=== PATIENT | female | born 1955 | race Caucasian/White ===

== ENCOUNTER → 2023-05-10 08:07 | Outpatient (REF) | payer MEDICARE, SELFPAY | LOC: RAD 08:07 | PROVIDERS: ATTENDING PHYSICIAN Internal Medicine; FAMILY PHYSICIAN Family Medicine | DX: M81.0 Age-related osteoporosis without current pathological fracture (principal) | CPT/HCPCS: 77080; 77081 ==

== ENCOUNTER → 2023-05-13 16:10 | Outpatient (REF) | payer MEDICARE, SELFPAY | LOC: RAD 16:10 | PROVIDERS: ATTENDING PHYSICIAN Specialist; FAMILY PHYSICIAN Family Medicine | DX: N20.0 Calculus of kidney (principal) | CPT/HCPCS: 74176 ==

== ENCOUNTER → 2023-08-13 12:26 | Outpatient (REF) | payer MEDICARE, SELFPAY | LOC: RAD 12:26 | PROVIDERS: ATTENDING PHYSICIAN Internal Medicine; FAMILY PHYSICIAN Family Medicine | DX: M34.9 Systemic sclerosis, unspecified (principal) | CPT/HCPCS: 71250 ==

== ENCOUNTER → 2023-08-24 06:59 | Outpatient (REF) | payer MEDICARE, SELFPAY | LOC: HWRCS 06:59 | PROVIDERS: ATTENDING PHYSICIAN Internal Medicine; FAMILY PHYSICIAN Family Medicine | DX: M34.9 Systemic sclerosis, unspecified (principal) | CPT/HCPCS: 93306 ==

== ENCOUNTER 2023-09-28 13:54 | Outpatient (RCR) | payer MEDICARE, SELFPAY | END 2023-09-28 23:59 | disposition home or self-care (01) | LOC: ROT 13:54 | PROVIDERS: ATTENDING PHYSICIAN Internal Medicine; FAMILY PHYSICIAN Family Medicine | DX: M34.9 Systemic sclerosis, unspecified (principal); Z73.6 Limitation of activities due to disability; M79.642 Pain in left hand; M79.641 Pain in right hand | CPT/HCPCS: 97010; 97110; 97140; 97166; 97535 ==

== ENCOUNTER 2023-10-29 13:19 | Outpatient (RCR) | payer MEDICARE, SELFPAY | END 2023-10-29 23:59 | disposition home or self-care (01) | LOC: ROT 13:19 | PROVIDERS: ATTENDING PHYSICIAN Internal Medicine; FAMILY PHYSICIAN Family Medicine | DX: M34.9 Systemic sclerosis, unspecified (principal); Z73.6 Limitation of activities due to disability; M79.642 Pain in left hand; M79.641 Pain in right hand | CPT/HCPCS: 97010; 97110; 97140 ==

== ENCOUNTER 2023-12-01 09:47 | Outpatient (RCR) | payer MEDICARE, SELFPAY | END 2023-12-01 23:59 | disposition home or self-care (01) | LOC: ROT 09:47 | PROVIDERS: ATTENDING PHYSICIAN Internal Medicine; FAMILY PHYSICIAN Family Medicine | DX: M34.9 Systemic sclerosis, unspecified (principal); Z73.6 Limitation of activities due to disability; M79.642 Pain in left hand; M79.641 Pain in right hand | CPT/HCPCS: 97018; 97110; 97140 ==

== ENCOUNTER → 2024-03-22 06:51 | Outpatient (REF) | payer MEDICARE, SELFPAY | LOC: HWRAD 06:51 | PROVIDERS: ATTENDING PHYSICIAN Internal Medicine; FAMILY PHYSICIAN Family Medicine | DX: R10.84 Generalized abdominal pain (principal) | CPT/HCPCS: 76700 ==

== ENCOUNTER 2024-03-28 06:24 | Day surgery (SDC) | payer MEDICARE, SELFPAY | END 2024-03-28 11:38 | disposition home or self-care (01) | LOC: GI 06:24 | PROVIDERS: ATTENDING PHYSICIAN Internal Medicine | DX: C18.3 Malignant neoplasm of hepatic flexure (principal); K56.699 Other intestinal obstruction unspecified as to partial versus complete obstruction; K63.3 Ulcer of intestine; R10.84 Generalized abdominal pain; K44.9 Diaphragmatic hernia without obstruction or gangrene; K31.7 Polyp of stomach and duodenum; K31.89 Other diseases of stomach and duodenum; Z98.84 Bariatric surgery status | CPT/HCPCS: 45380; 43239; 88305; 88342 ==

== ENCOUNTER → 2024-04-13 12:16 | Outpatient (REF) | payer MEDICARE, SELFPAY | LOC: RAD 12:16 | PROVIDERS: ATTENDING PHYSICIAN Internal Medicine; FAMILY PHYSICIAN Family Medicine; REFERRING PHYSICIAN Surgery | DX: C18.3 Malignant neoplasm of hepatic flexure (principal); K56.699 Other intestinal obstruction unspecified as to partial versus complete obstruction; K63.89 Other specified diseases of intestine | CPT/HCPCS: 71260; 74177; Q9967 ==

== ENCOUNTER → 2024-04-18 11:52 | Outpatient (REF) | payer MEDICARE, SELFPAY | LOC: MRI 3T 11:52 | PROVIDERS: ATTENDING PHYSICIAN Surgery; FAMILY PHYSICIAN Family Medicine | DX: C18.3 Malignant neoplasm of hepatic flexure (principal) | CPT/HCPCS: 74183; A9575 ==

== ENCOUNTER 2024-04-28 06:15 | Day surgery (SDC) | payer MEDICARE, SELFPAY ==
[2024-04-28] VITALS (8 sets, daily range): BP systolic 92–106; BP diastolic 53–68; BMI 22.2
[2024-04-28] MEDS: NORMOSOL-R/PLASMALYTE-A 1000 IV (07:00)
[2024-04-28] MEDS: TYLENOL 1000 MG PO (07:16)
[2024-04-28] MEDS: CELEBREX 200 MG PO (07:16)
--- NOTE | 2024-04-28 08:37 | W.IMMPOSTOP ---
Surgical Immed Post Op Note
-
Primary Surgeon: Mehul Girard MD
Assisting Surgeon: None
Pre-op Diagnosis: T4b colon cancer
Post-op Diagnosis: T4b colon cancer
Procedure Performed: Mediport insertion
Anesthesia Type: Sedation with local
Specimen / Cultures: None
Estimated Blood Loss: 10 mL
Complications: None
Operative Findings: Per op note; successful placement of Mediport
--- NOTE | 2024-04-28 08:38 | OR.RPT ---
Operative Report
Operative Report
DATE OF OPERATION: 04/28/2024
SURGEON: Mehul Girard MD
PREOPERATIVE DIAGNOSIS: T4b colon cancer
POSTOPERATIVE DIAGNOSIS: T4b colon cancer
OPERATION: Left subclavian Mediport insertion
ASSISTANTS:
1. None
ANESTHESIA: Sedation with local
ESTIMATED BLOOD LOSS: 10 mL
FINDINGS:
1. After placement, the tip of port catheter visualized at level of the cavoatrial junction on fluoroscopy
2. Once sutured in position, port tested with Keita needle and there was good withdrawal of blood and instillation of heparinized saline without resistance
SPECIMENS: None
DRAINS: None
COMPLICATIONS: No immediate complications.
INDICATIONS: The patient is a 69-year-old female with a proximal colon cancer that was shown to have concern for local invasion of the duodenum pancreas and possibly IVC on staging imaging, making this a T4b colon cancer. Infusional chemotherapy
was recommended. Therefore, I recommended port placement. The operation was discussed with the patient in detail including risks and benefits. Risks discussed included, but are not limited to, bleeding, infection, pneumothorax, post-operative
malposition or movement of catheter, need for second surgery, DVT/PE, and anesthetic risks. The patient understood and agreed to proceed. The consent was signed and placed in the chart.
PROCEDURE: Patient was taken to the operating room and placed on the operating table in supine position. Sequential compression devices were placed bilaterally. Sedation was commenced without complication. Bilateral arms were tucked and the head
was tilted toward the right. The left neck and chest wall area were prepped and draped in a sterile fashion. A time-out was then performed verifying the correct patient, procedure, operative site, positioning, and special equipment.
The patient was placed in Trendelenburg position. 10 mL of local anesthetic consisting of 1% lidocaine with epinephrine was used to numb the skin and soft tissue near the angle of the left clavicle. I visualized her left subclavian vein, left
clavicle and underlying chest cavity using ultrasound. The left subclavian vein was located superiorly under the rib. Using bony landmarks as a guide, I passed the needle with 10mL syringe under the left clavicle in the direction of the sternal
notch while simultaneously aspirating. On the second pass, good venous return was noted indicating that I had accessed the left subclavian vein. Under fluoroscopic guidance, a guidewire was passed through the needle into the patient down to the
superior vena cava. This went smoothly.
The needle was removed over the guidewire and a skin opening was enlarged with an 11 blade scalpel. Next, I advanced the dilator and peel-away sheath together over the guidewire into the patient. This went smoothly as well. Next, the guidewire and
inner dilator were removed leaving the outer sheath in place. I advanced the white tubing through the outer sheath into the patient under fluoroscopic guidance to the superior vena cava near the right atrium. Likely due to the Trendelenburg
positioning, the distance between the cavoatrial junction and diaphragm was shorter than expected. Next, the outer sheath was peeled away while maintaining the white tubing in place. The location of the catheter tip was confirmed on fluoroscopy.
Using a 15 blade scalpel, I made a 3cm incision over the chest wall. A subcutaneous pocket was created inferiorly to the incision with a combination of Bovie electrocautery and blunt dissection. There was good hemostasis. The white tubing was
connected to the tunneling device and brought through a newly created tunnel to the pocket area, taking care to avoid kinking of the tube. I confirmed with fluoroscopy that the tip was still at the cavoatrial junction after this manipulation. The
white tubing was trimmed, connected to the the port reservoir and secured with the locking mechanism. The port reservoir was accessed with good venous return and flushed with heparinized saline. Another round of fluoroscopy was performed. The tip
of the white tubing was now seen closer to the level of the diaphragm. I adjusted the patient positioning and placed her in slight reverse Trendelenburg to reflect normal anatomic positioning. The tip of the tubing was still closer to the level of
the diaphragm. Therefore, I disconnected the port and trimmed the white catheter by 2 cm. I reconnected the port reservoir and secured with the locking mechanism. The port was accessed with the Keita needle and there was easy withdrawal of blood
and easy flushing of heparinized saline. On fluoroscopy, the tip was now at the cavoatrial junction and there was no kink in the tubing.
The port was secured to the chest wall with two 3-0 Prolene stitches. The port was accessed once more with the Keita needle and heparinized saline. The port withdrew promptly and flushed easily. The subcutaneous layer was closed with deep dermal
interrupted 3-0 Vicryl and the skin was closed with a running subcuticular 4-0 Vicryl. Dermabond was used to dress the port incision and stab incision.
At this point, the procedure was complete. All sponge, needle and instrument counts were correct. The patient tolerated the procedure well and was transferred to the recovery room in stable condition. A portable chest x-ray was ordered in recovery
to confirm port position and rule-out pneumothorax.
DICTATED BY: Mehul Girard MD
[2024-04-28] MEDS: ZOFRAN 4 MG IV (08:57)
== END 2024-04-28 10:15 | disposition home or self-care (01) ==
LOC: SDS 06:15
PROVIDERS: ATTENDING PHYSICIAN Surgery
DX: C18.9 Malignant neoplasm of colon, unspecified (principal)
CPT/HCPCS: 36561; 71045; 76000; 86900; 86901; C1788

== ENCOUNTER 2024-04-30 06:01 | Emergency (ER) | payer MEDICARE, SELFPAY ==
[2024-04-30 06:10] VITALS: BP 96/64
[2024-04-30 07:04] VITALS: BMI 22.7
[2024-04-30] MEDS: NSS 500 IV (07:26)
[2024-04-30] MEDS: DILAUDID 0.5 MG IV ×2 (07:26→10:34)
[2024-04-30] MEDS: ZOFRAN 4 MG IV (07:27)
[2024-04-30] MEDS: PROTONIX IV 40 MG IV (07:27)
--- NOTE | 2024-04-30 07:34 | VATNOTE ---
Left chest wall port accessed with 0.75' wallace without issue. Port flushed well, but no blood return. Port de-accessed, and re-accessed using a 1' wallace needle. Again, flushed easily with no blood return. Port was placed two days ago per patient.
Will discuss with ER MD what plan of care should be. Peripheral IV placed and labs drawn.
[2024-04-30 07:38] LABS: % Basophils 0.5 % (0-2); % Eosinophils 1.7 % (0-6); % Lymphocytes 6.2 % (20.5-51.1); % Monocytes 6.8 % (1.7-9.3); % Neutrophils 83.8 % (42.2-75.2); Absolute Basophils 0.1 10^3/uL (0-0.2); Absolute Eosinophils 0.3 10^3/uL (0-0.7); Absolute Immature Granulocytes 0.2 10^3/uL (0-0.05); Absolute Monocytes 1.2 10^3/uL (0.1-0.6); Absolute Neutrophils 14.1 10^3/uL (1.4-6.5); Hematocrit 36.6 % (37.0-47.0); Hemoglobin 11.3 g/dL (12.0-16.0); Mean Corp Hgb Conc. 30.9 g/dL (33.0-37.0); Mean Corpuscular Hgb 28.6 pg (27.0-31.0); Mean Corpuscular Volume 92.7 fL (81.0-99.0); Nucleated Red Blood Cells % 0 %; Platelet Count 474 10^3/uL (130-400); Red Blood Cell Count 3.95 10^6/uL (4.20-5.40); Red Cell Dist. Width 18.1 % (11.5-14.5); White Blood Cell Count 16.8 10^3/uL (4.8-10.8)
[2024-04-30] MEDS: CATHFLO/ACTIVASE 2 MG INTRACATH ×2 (08:25→10:06)
[2024-04-30 08:41] VITALS: BP 112/67
--- NOTE | 2024-04-30 08:52 | ED.GENMED ---
History of Present Illness
General
Chief Complaint: Abdominal Pain
Source: patient
Exam Limitations: none
Time Seen by Provider: 04/30/24 06:33
Nursing documentation reviewed up to this point in time: agreed with
History of Present Illness
History of Present Illness:
Patient recently diagnosed with transverse colon cancer with mass effect, pushing up on her duodenum, with chronic intermittent pain, presents to ED secondary to 2-day history of worsening pain with loose bowel movements. Patient states that
quality of her abdominal pain is same as what she had been experiencing, but pain has become more intense, despite taking her medications at home, including Tylenol and tramadol. Denies vomiting. Denies fever or chills. Denies new trauma.
Patient also does report continual loss of appetite with weight loss. Patient is scheduled to have initial consultation with her oncology next week. However, patient has been advised by her colorectal surgeon, Dr. Mehul Girard, to come to ED with
worsening pain.
Past History
Past History
ED Past Medical History: None
ED Past Surgical History: None
Review of Systems
Review of Systems
Allergies reviewed?: Yes
Constitutional: Reports no symptoms; Denies fever
Respiratory: Reports no symptoms
Cardiac: Reports no symptoms
ABD/GI: Reports abdominal pain; Denies nausea or vomiting
Musculoskeletal: Reports no symptoms
Skin: Reports no symptoms
Neurological: Reports no symptoms
Phy Exam
Physical Exam
Physical Exam:
Physical Exam
General: mild painful distress, not acutely ill. afebrile. thin appearing
Head: nc/at. eomi
Neck: supple. normal range of motion.
Heart: s1/s2 regular rate and rhythm, no murmur.
Lungs: no acute respiratory distress. clear bilaterally
Abdomen: normal bowel sounds. no distention. diffuse tenderness to palpation.
Neuro: alert and oriented. no focal neurological deficits
Skin: no rash
Psychiatric: well kept. interactive and cooperative
Extremities: no edema. no calf tenderness.
Course
Orders/Labs/Results
Orders:
Orders
04/30/24 07:07
0.9% Sodium Chloride 500 ml [Nss] 500 ml IV BOLUS
HYDROmorphone [Dilaudid] 0.5 mg IV NOW STA
Pantoprazole [Protonix IV] 40 mg IV NOW STA
CR Obstruct Series W/pa Chest Urgent
Comment:
Reason For Exam: upper abdominal pain
04/30/24 07:16
Ondansetron Injectable [Zofran] 4 mg .ROUTE .STK-MED ONE
Ondansetron Injectable [Zofran] 4 mg IV NOW STA
04/30/24 07:24
Complete Blood Count/With Diff Urgent
04/30/24 08:04
Alteplase [Cathflo/Activase] 2 mg INTRACATH NOW STA
04/30/24 08:21
Sterile Water [Sterile Water For Injection] 10 ml .ROUTE .STK-MED ONE
04/30/24 08:34
Comprehensive Metabolic Panel Urgent
Lipase Urgent
04/30/24 09:29
Alteplase [Cathflo/Activase] 2 mg INTRACATH NOW STA
04/30/24 10:30
HYDROmorphone [Dilaudid] 0.5 mg IV NOW STA
04/30/24 11:02
Heparin Pf [Heparin Lock Flush] 500 unit .ROUTE .STK-MED ONE
Abnormal Lab Results
04/30/24 04/30/24
07:24 08:34
WBC 16.8 H 10^3/uL
(4.8-10.8)
RBC 3.95 L 10^6/uL
(4.20-5.40)
Hgb 11.3 L g/dL
(12.0-16.0)
Hct 36.6 L %
(37.0-47.0)
MCHC 30.9 L g/dL
(33.0-37.0)
RDW 18.1 H %
(11.5-14.5)
Plt Count 474 H 10^3/uL
(130-400)
Abs Immat Gran (auto) 0.2 H 10^3/uL
(0-0.05)
Absolute Neuts (auto) 14.1 H 10^3/uL
(1.4-6.5)
Absolute Lymphs (auto) 1.0 L 10^3/uL
(1.2-3.4)
Absolute Monos (auto) 1.2 H 10^3/uL
(0.1-0.6)
Immature Gran % 1.0 H %
(0-0.5)
Neutrophils % 83.8 H %
(42.2-75.2)
Lymphocytes % 6.2 L %
(20.5-51.1)
Sodium 134 L mmol/L
(135-145)
Creatinine 0.4 L mg/dL
(0.6-1.0)
Total Protein 5.9 L g/dl
(6.3-8.2)
Albumin 3.2 L g/dl
(3.5-5.0)
04/30/24 07:24
04/30/24 08:34
Vital Signs
Initial and Last Documented VS:
Initial Vital Signs
Temp Pulse Resp BP Pulse Ox
98.2 F 100 20 96/64 98
04/30/24 06:10 04/30/24 06:10 04/30/24 06:10 04/30/24 06:10 04/30/24 06:10
Last Documented Vital Signs
Temp Pulse Resp BP Pulse Ox
98.2 F 76 16 114/66 95
04/30/24 06:10 04/30/24 10:40 04/30/24 10:40 04/30/24 10:40 04/30/24 10:40
MDM/Problems Addressed
MDM/Problems Addressed:
Patient with an unremarkable workup in ED, including blood work and x-ray. Mild leukocytosis noted, which appears to be unchanged from her recent blood work. History and exam inconsistent with an acute infectious process at this time. In
addition, in light of multiple bowel movements, doubtful for an obstructive process. Patient given pain medication in ED, with significant proving symptoms. Repeat abdominal exam: Soft and nontender. Patient's presenting symptoms likely
continuation of her underlying colonic mass with mass effect. Discussed treatment options with the patient, including potential admission for further workup and pain management. However at this time, as she has an appointment with her oncologist
in 2 days, along with improvement in symptoms, feels comfortable going home at this time, with short course of pain medication. Return precautions provided to the patient, i.e. fever/worsening pain/vomiting. Patient otherwise is afebrile,
hemodynamically stable, and nontoxic-appearing, at time of discharge, to the care of her family.
*Critical Care Note
Total Time (30-74mins, 75-104mins- exclusive of procedures): Not Applicable
ED Attending Note
-
Portions of this chart may have been created with voice recognition software.� Occasional wrong word or��sound alike� substitutions may have occurred due to the inherent limitations of voice recognition software.
Discharge Plan
Departure
Patient Disposition: Home (Routine Discharge)
Date of Disposition: 04/30/24
Time of Disposition: 11:21
Patient with high blood pressure during this ER visit?: Yes
Condition: Good
Discharge Problem:
Abdominal pain
Instructions: Abdominal Pain
Prescriptions:
New
hydromorphone [Dilaudid] 2 mg tablet
2 mg PO Q6H PRN (Reason: Pain) Qty: 10 0RF
No Action
levothyroxine 25 mcg Tablet
25 mcg PO DAILY
famotidine 10 mg Tablet
10 mg PO HS
polyethylene glycol 3350 [Miralax] 17 gram Powder In Packet
17 g PO BID
tramadol 50 mg Tablet
50 mg PO Q6H PRN (Reason: pain)
acetaminophen [Tylenol Ex Str Arthritis Pain] 500 mg Tablet
500 mg PO Q6H PRN (Reason: pain)
omeprazole 20 mg Tablet,Delayed Release (Dr/Ec)
20 mg PO DAILY
Referrals:
Josiane Roberts MD [Active] -
Amando Martinez MD [Family Provider] -
Mehul Girard MD [Active] -
Activity Restrictions/Additional Instructions:
As discussed, please follow-up with your oncologist on Wednesday as scheduled, for further evaluation and treatment. Your prescription has been sent electronically to [facility] pharmacy in [place].
Interventions
Interventions:
*Risk Screen - Suicide Last Done: 04/30/24 06:10
*General Assessment Last Done: 04/30/24 07:34
*Neglect/Abuse Screening Last Done: 04/30/24 06:10
ED- Fall Risk Assessment Last Done: 04/30/24 07:34
*ED COVID-19 Vaccine History Last Done: 04/30/24 07:34
*Nursing Disposition Last Done: 04/30/24 11:55
WW-Zfguxl-Jwnalvdcru Assessment Last Done: 04/30/24 07:34
Discharge Date and Time
Discharge Date/Time: 04/30/24 11:56
Print Language: CROATIAN
[2024-04-30 08:58] LABS: ALT (SGPT) 19 U/L (0-35); AST (SGOT) 28 U/L (14-36); Albumin 3.2 g/dl (3.5-5.0); Alkaline Phosphatase 86 U/L (38-126); Blood Urea Nitrogen 17 mg/dl (7-17); Calcium 8.4 mg/dl (8.4-10.2); Carbon Dioxide 26 mmol/L (22-30); Chloride 100 mmol/L (98-107); Estimated Creatinine Clearance 74 ml/min; Glucose 90 mg/dl (70-99); Lipase 46 U/L (23-300); Potassium 4.6 mmol/L (3.5-5.1); Sodium 134 mmol/L (135-145); Total Bilirubin 0.3 mg/dl (0.2-1.3); Total Protein 5.9 g/dl (6.3-8.2); eGFR > 60.00
[2024-04-30 10:40] VITALS: BP 114/66
--- NOTE | 2024-04-30 11:05 | VATNOTE ---
CathFlo x2. Port with brisk blood return after second dose.
== END 2024-04-30 11:56 | disposition home or self-care (01) ==
LOC: EMR 06:01
PROVIDERS: EMERGENCY PHYSICIAN Emergency Medicine; FAMILY PHYSICIAN Family Medicine
DX: C18.4 Malignant neoplasm of transverse colon (principal)
CPT/HCPCS: 96374; 96375; 96376; 99284; 74022; 80053; 83690; 85025; J2997

== ENCOUNTER 2024-05-11 15:19 | Emergency (ER) | payer MEDICARE, SELFPAY ==
[2024-05-11 15:21] VITALS: BP 110/61; BMI 22.5
[2024-05-11 16:00] VITALS: BP 100/60
--- NOTE | 2024-05-11 16:02 | ED.GENMED ---
History of Present Illness
<Hannah Webber NP - Last Filed: 05/11/24 20:46>
General
Chief Complaint: Blood Pressure Problem
Source: patient
Exam Limitations: none
Time Seen by Provider: 05/11/24 15:48
Nursing documentation reviewed up to this point in time: agreed with
History of Present Illness
History of Present Illness:
Patient to ED with complaint of sharp intermittent left chest pain. SHe is currently receiving chemo for colon CA. SHe had her first infusion 2 days ago. She was seen at infusion center today and while being evaluated developed sharp left chest
pain. SHe became hypotensive. Pulse ox measuring low 90's. Placed on 2LNC vy infusion center and sent to ED. ON arrival to ED she is pain free. PUlse ox 99% RA, normotensive. No new complaints
Past History
<Hannah Webber NP - Last Filed: 05/11/24 20:46>
Past History
ED Past Medical History: None
ED Past Surgical History: None
Review of Systems
<Hannah Webber NP - Last Filed: 05/11/24 20:46>
Review of Systems
Allergies reviewed?: Yes
All Other Systems: ROS reviewed and negative except as documented in HPI and ROS
Constitutional: Reports no symptoms
EENT: Reports no symptoms
Respiratory: Reports no symptoms
Cardiac: Reports chest pain
ABD/GI: Reports no symptoms
: Reports no symptoms
Musculoskeletal: Reports no symptoms
Skin: Reports no symptoms
Neurological: Reports no symptoms
Psychiatric: Reports no symptoms
Phy Exam
<Hannah Webber NP - Last Filed: 05/11/24 20:46>
General Physical Exam
General Presentation: well appearing and no apparent distress
General age: appears stated age
General Skin: warm and dry
General Habitus: normal
Cardiovascular Exam
Cardiovascular Exam: regular rate/rhythm and no edema
Pulmonary Exam
Pulmonary Exam: lungs clear and no respiratory distress
Gastrointestinal Exam
Gastrointestinal Exam: non tender and soft
Musculoskeletal Exam
Musculoskeletal Exam: full ROM and neuro vasc intact
Skin Exam
Skin Exam: normal color, warm/dry and no rash
Psychiatric Exam
Psychiatric Exam: normal mood/affect
Course
<Hannah Webber AUTO STRIPER - Last Filed: 05/11/24 20:46>
Orders/Labs/Results
Orders:
Orders
05/11/24 15:30
EKG [Electrocardiogram (*1)] Urgent
Reason for Study: Tachycardia
EKG- Treatment ONCE
05/11/24 15:55
Complete Blood Count/With Diff Urgent
Comprehensive Metabolic Panel Urgent
Troponin I Urgent
05/11/24 16:32
0.9% Sodium Chloride 1000 ml [Nss] 1,000 ml IV BOLUS
05/11/24 17:16
Tramadol HCl [Ultram] 50 mg .ROUTE .STK-MED ONE
05/11/24 17:17
Tramadol HCl [Ultram] 50 mg PO NOW STA
05/11/24 17:20
CT Chest PE Study Urgent
Comment:
Reason For Exam: sharp chest pain, hypoxia, colon CA
Tramadol HCl [Ultram] 50 mg PO NOW STA
05/11/24 19:35
Troponin I Urgent
Abnormal Lab Results
05/11/24
15:55
WBC 15.5 H 10^3/uL
(4.8-10.8)
RBC 3.48 L 10^6/uL
(4.20-5.40)
Hgb 9.9 L g/dL
(12.0-16.0)
Hct 32.2 L %
(37.0-47.0)
MCHC 30.7 L g/dL
(33.0-37.0)
RDW 17.8 H %
(11.5-14.5)
Abs Immat Gran (auto) 0.1 H 10^3/uL
(0-0.05)
Absolute Neuts (auto) 14.6 H 10^3/uL
(1.4-6.5)
Absolute Lymphs (auto) 0.6 L 10^3/uL
(1.2-3.4)
Neutrophils % 93.7 H %
(42.2-75.2)
Lymphocytes % 3.8 L %
(20.5-51.1)
BUN 21 H mg/dl
(7-17)
Creatinine 0.5 L mg/dL
(0.6-1.0)
Glucose 133 H mg/dl
(70-99)
Total Protein 5.9 L g/dl
(6.3-8.2)
Albumin 3.4 L g/dl
(3.5-5.0)
05/11/24 15:55
05/11/24 15:55
Vital Signs
Initial and Last Documented VS:
Initial Vital Signs
Temp Pulse Resp BP Pulse Ox
97.6 F 65 14 110/61 100
05/11/24 15:21 05/11/24 15:21 05/11/24 15:21 05/11/24 15:21 05/11/24 15:21
Last Documented Vital Signs
Temp Pulse Resp BP Pulse Ox
97.6 F 64 13 104/57 94
05/11/24 15:21 05/11/24 20:30 05/11/24 20:30 05/11/24 20:28 05/11/24 20:30
Nyalt;Albaro Simmons, DO - Last Filed: 05/11/24 16:48>
Orders/Labs/Results
Orders:
Orders
05/11/24 15:30
EKG [Electrocardiogram (*1)] Urgent
Reason for Study: Tachycardia
EKG- Treatment ONCE
05/11/24 15:55
Complete Blood Count/With Diff Urgent
Comprehensive Metabolic Panel Urgent
Troponin I Urgent
05/11/24 16:32
0.9% Sodium Chloride 1000 ml [Nss] 1,000 ml IV BOLUS
05/11/24 17:16
Tramadol HCl [Ultram] 50 mg .ROUTE .STK-MED ONE
05/11/24 17:17
Tramadol HCl [Ultram] 50 mg PO NOW STA
05/11/24 17:20
CT Chest PE Study Urgent
Comment:
Reason For Exam: sharp chest pain, hypoxia, colon CA
Tramadol HCl [Ultram] 50 mg PO NOW STA
05/11/24 19:35
Troponin I Urgent
Abnormal Lab Results
05/11/24
15:55
WBC 15.5 H 10^3/uL
(4.8-10.8)
RBC 3.48 L 10^6/uL
(4.20-5.40)
Hgb 9.9 L g/dL
(12.0-16.0)
Hct 32.2 L %
(37.0-47.0)
MCHC 30.7 L g/dL
(33.0-37.0)
RDW 17.8 H %
(11.5-14.5)
Abs Immat Gran (auto) 0.1 H 10^3/uL
(0-0.05)
Absolute Neuts (auto) 14.6 H 10^3/uL
(1.4-6.5)
Absolute Lymphs (auto) 0.6 L 10^3/uL
(1.2-3.4)
Neutrophils % 93.7 H %
(42.2-75.2)
Lymphocytes % 3.8 L %
(20.5-51.1)
BUN 21 H mg/dl
(7-17)
Creatinine 0.5 L mg/dL
(0.6-1.0)
Glucose 133 H mg/dl
(70-99)
Total Protein 5.9 L g/dl
(6.3-8.2)
Albumin 3.4 L g/dl
(3.5-5.0)
05/11/24 15:55
05/11/24 15:55
Vital Signs
Initial and Last Documented VS:
Initial Vital Signs
Temp Pulse Resp BP Pulse Ox
97.6 F 65 14 110/61 100
05/11/24 15:21 05/11/24 15:21 05/11/24 15:21 05/11/24 15:21 05/11/24 15:21
Last Documented Vital Signs
Temp Pulse Resp BP Pulse Ox
97.6 F 64 13 104/57 94
05/11/24 15:21 05/11/24 20:30 05/11/24 20:30 05/11/24 20:28 05/11/24 20:30
<Hannah Webber NP - Last Filed: 05/11/24 20:46>
*Radiology
Radiology exam reviewed: radiology read reviewed
*Pulse Oximetry
Patient hypoxic: no
*Critical Care Note
Total Time (30-74mins, 75-104mins- exclusive of procedures): Not Applicable
<Hannah Webber NP - Last Filed: 05/11/24 20:46>
Update Note
Update Note:
Patient to ED wtih complaint of left sided sharp intermittent chst pain. She had 1 episode of pain while in ED. Sent for CT to r/o possible PE. CT neg for acute findings. EKG NSR, Troponin neg. x 2. Resting comfortable in room. Pulse ox
remains 99% RA. No findings to eplain her pain. Possibley related to recent chemo infusion. SHe is scheduled to follow up in 2 days. SHe is discharged home. Given instructions on s/s to return to ED. Case discussed with Dr. Simmons who agrees
with findings and plan
ED Attending Note
<Hannah Webber AUTO STRIPER - Last Filed: 05/11/24 20:46>
-
Portions of this chart may have been created with voice recognition software.� Occasional wrong word or��sound alike� substitutions may have occurred due to the inherent limitations of voice recognition software.
<Albaro Simmons DO - Last Filed: 05/11/24 16:48>
ED Attending Note
Patient seen and examined by attending physician: Yes
I performed the substantive portion of visit, reviewed & personally made and approve the management plan that is documented in note by myself or SKYLA.: Yes
ED Attending Note:
Seen with AUTO STRIPER examined independently 69-year-old female from the infusion center at her oncologist she has been on a continuous infusion chemotherapy for a few days, developed nausea vomiting diarrhea yesterday, they were taking off the infusion bag
developed dizziness nausea some pain into her back apparently low blood pressure and low pulse ox this is not confirmed here tells me now she is feeling better, receiving IV fluids, prior CT scans reviewed, sideration for another CT scan to rule out
PE although she has had multiple CAT scans this year she is fairly asymptomatic now will check chest x-ray see how she does on room air
Discharge Plan
Departure
Patient Disposition: Home (Routine Discharge)
Date of Disposition: 05/11/24
Time of Disposition: 20:36
Patient with high blood pressure during this ER visit?: No
Condition: Good
Covid-19: Not Applicable
Discharge Problem:
Chest pain
Instructions: Chest Pain PCP Follow Up
Prescriptions:
No Action
levothyroxine 25 mcg Tablet
25 mcg PO DAILY
famotidine 10 mg Tablet
10 mg PO HS
polyethylene glycol 3350 [Miralax] 17 gram Powder In Packet
17 g PO BID
tramadol 50 mg Tablet
50 mg PO Q6H PRN (Reason: pain)
acetaminophen [Tylenol Ex Str Arthritis Pain] 500 mg Tablet
500 mg PO Q6H PRN (Reason: pain)
omeprazole 20 mg Tablet,Delayed Release (Dr/Ec)
20 mg PO DAILY
hydromorphone [Dilaudid] 2 mg tablet
2 mg PO Q6H PRN (Reason: Pain) Qty: 10 0RF
Referrals:
Amando Martinez MD [Family Provider] - Follow up in 2-3 days
Activity Restrictions/Additional Instructions:
Return to the emergency department for any changes in/worsening of your symptoms.
Interventions
Interventions:
*Risk Screen - Suicide Last Done: 05/11/24 15:21
*General Assessment Last Done: 05/11/24 15:21
*Neglect/Abuse Screening Last Done: 05/11/24 15:21
ED- Fall Risk Assessment Last Done: 05/11/24 15:21
*ED COVID-19 Vaccine History Last Done: 05/11/24 15:21
ED- Cardiac Assessment Last Done: 05/11/24 15:32
ED- Neurological Assessment Last Done: 05/11/24 15:32
ED- Pulmonary Assessment Last Done: 05/11/24 15:32
Discharge Date and Time
Print Language: AMERICAN
[2024-05-11 16:14] LABS: % Basophils 0.1 % (0-2); % Immature Granulocytes 0.5 % (0-0.5); % Lymphocytes 3.8 % (20.5-51.1); % Monocytes 1.9 % (1.7-9.3); % Neutrophils 93.7 % (42.2-75.2); Absolute Immature Granulocytes 0.1 10^3/uL (0-0.05); Absolute Lymphocytes 0.6 10^3/uL (1.2-3.4); Absolute Monocytes 0.3 10^3/uL (0.1-0.6); Absolute Neutrophils 14.6 10^3/uL (1.4-6.5); Hematocrit 32.2 % (37.0-47.0); Hemoglobin 9.9 g/dL (12.0-16.0); Mean Corp Hgb Conc. 30.7 g/dL (33.0-37.0); Mean Corpuscular Hgb 28.4 pg (27.0-31.0); Mean Corpuscular Volume 92.5 fL (81.0-99.0); Nucleated Red Blood Cells % 0 %; Red Blood Cell Count 3.48 10^6/uL (4.20-5.40); Red Cell Dist. Width 17.8 % (11.5-14.5); White Blood Cell Count 15.5 10^3/uL (4.8-10.8)
[2024-05-11 16:24] LABS: ALT (SGPT) 20 U/L (0-35); AST (SGOT) 23 U/L (14-36); Albumin 3.4 g/dl (3.5-5.0); Alkaline Phosphatase 80 U/L (38-126); Blood Urea Nitrogen 21 mg/dl (7-17); Calcium 8.8 mg/dl (8.4-10.2); Carbon Dioxide 28 mmol/L (22-30); Chloride 99 mmol/L (98-107); Estimated Creatinine Clearance 74 ml/min; Glucose 133 mg/dl (70-99); Potassium 4.2 mmol/L (3.5-5.1); Sodium 135 mmol/L (135-145); Total Bilirubin 0.5 mg/dl (0.2-1.3); Total Protein 5.9 g/dl (6.3-8.2); eGFR > 60.00
[2024-05-11 16:30] LABS: Troponin I < 0.012 ng/ml
[2024-05-11] MEDS: NSS 1000 IV (16:40)
[2024-05-11 17:00] VITALS: BP 101/61
[2024-05-11] MEDS: ULTRAM 50 MG PO (17:17)
[2024-05-11 18:00] VITALS: BP 119/66
[2024-05-11 19:00] VITALS: BP 96/66
[2024-05-11 20:05] LABS: Troponin I < 0.012 ng/ml
[2024-05-11 20:28] VITALS: BP 104/57
--- NOTE | 2024-05-11 21:30 | VATNOTE ---
left port deaccessed per protocol; brisk blood return noted prior when patient sits up and takes deep breath.
== END 2024-05-11 21:30 | disposition home or self-care (01) ==
LOC: EMR 15:19
PROVIDERS: Nurse Practitioner; EMERGENCY PHYSICIAN Emergency Medicine; FAMILY PHYSICIAN Family Medicine
DX: R07.89 Other chest pain (principal); I95.9 Hypotension, unspecified; Z85.038 Personal history of other malignant neoplasm of large intestine
CPT/HCPCS: 99284; 96360; 71275; 80053; 84484; 85025; 93005; Q9967

== ENCOUNTER 2024-05-12 06:31 | Day surgery (SDC) | payer MEDICARE, SELFPAY ==
[2024-05-12] VITALS (8 sets, daily range): BP systolic 96–109; BP diastolic 56–67; BMI 20.4
== END 2024-05-12 19:05 | disposition home or self-care (01) ==
LOC: SDS 06:31
PROVIDERS: ATTENDING PHYSICIAN Internal Medicine Gastroenterology
DX: R93.3 Abnormal findings on diagnostic imaging of other parts of digestive tract (principal); Z98.84 Bariatric surgery status
CPT/HCPCS: 43235

== ENCOUNTER → 2024-05-20 07:22 | Outpatient (REF) | payer MEDICARE, SELFPAY ==
[2024-05-20 07:57] LABS: Hematocrit 31.8 % (37.0-47.0); Hemoglobin 9.8 g/dL (12.0-16.0); Mean Corp Hgb Conc. 30.8 g/dL (33.0-37.0); Mean Corpuscular Volume 94.1 fL (81.0-99.0); Mean Platelet Volume 9.4 fL (7.4-10.4); Platelet Count 324 10^3/uL (130-400); Red Blood Cell Count 3.38 10^6/uL (4.20-5.40); Red Cell Dist. Width 18.8 % (11.5-14.5); White Blood Cell Count 33.8 10^3/uL (4.8-10.8)
[2024-05-20 08:32] LABS: ALT (SGPT) 16 U/L (0-35); AST (SGOT) 24 U/L (14-36); Albumin 3.3 g/dl (3.5-5.0); Alkaline Phosphatase 181 U/L (38-126); Blood Urea Nitrogen 11 mg/dl (7-17); Calcium 8.6 mg/dl (8.4-10.2); Carbon Dioxide 30 mmol/L (22-30); Chloride 98 mmol/L (98-107); Glucose 86 mg/dl (70-99); Potassium 3.1 mmol/L (3.5-5.1); Sodium 136 mmol/L (135-145); Total Bilirubin 0.3 mg/dl (0.2-1.3); Total Protein 5.9 g/dl (6.3-8.2); eGFR > 60.00
[2024-05-20 09:01] LABS: % Basophils 0.2 % (0-2); % Eosinophils 1.1 % (0-6); % Immature Granulocytes 8.4 % (0-0.5); % Lymphocytes 4.1 % (20.5-51.1); % Monocytes 4.2 % (1.7-9.3); Absolute Basophils 0.1 10^3/uL (0-0.2); Absolute Eosinophils 0.4 10^3/uL (0-0.7); Absolute Immature Granulocytes 2.8 10^3/uL (0-0.05); Absolute Lymphocytes 1.4 10^3/uL (1.2-3.4); Absolute Monocytes 1.4 10^3/uL (0.1-0.6); Absolute Neutrophils 27.7 10^3/uL (1.4-6.5); Nucleated Red Blood Cells % 0.1 %
== END ==
LOC: REG 07:22
PROVIDERS: ATTENDING PHYSICIAN Internal Medicine Hematology & Oncology; FAMILY PHYSICIAN Family Medicine
DX: C50.412 Malignant neoplasm of upper-outer quadrant of left female breast (principal); D50.9 Iron deficiency anemia, unspecified; C18.4 Malignant neoplasm of transverse colon; I73.00 Raynaud's syndrome without gangrene; G62.0 Drug-induced polyneuropathy; M34.9 Systemic sclerosis, unspecified
CPT/HCPCS: 36415; 80053; 85025

== ENCOUNTER → 2024-05-22 12:40 | Outpatient (REF) | payer MEDICARE, SELFPAY | LOC: RCS 12:40 | PROVIDERS: ATTENDING PHYSICIAN Internal Medicine; FAMILY PHYSICIAN Family Medicine | DX: R07.9 Chest pain, unspecified (principal); C18.9 Malignant neoplasm of colon, unspecified; I73.00 Raynaud's syndrome without gangrene; T45.1X5A Adverse effect of antineoplastic and immunosuppressive drugs, initial encounter | CPT/HCPCS: 93017 ==

== ENCOUNTER → 2024-06-03 07:20 | Outpatient (REF) | payer MEDICARE, SELFPAY ==
[2024-06-03 09:05] LABS: ALT (SGPT) 18 U/L (0-35); AST (SGOT) 20 U/L (14-36); Albumin 3.7 g/dl (3.5-5.0); Alkaline Phosphatase 163 U/L (38-126); Blood Urea Nitrogen 12 mg/dl (7-17); Calcium 9.2 mg/dl (8.4-10.2); Carbon Dioxide 23 mmol/L (22-30); Chloride 103 mmol/L (98-107); Glucose 109 mg/dl (70-99); Potassium 4.3 mmol/L (3.5-5.1); Sodium 137 mmol/L (135-145); Total Bilirubin 0.3 mg/dl (0.2-1.3); Total Protein 6.4 g/dl (6.3-8.2); eGFR > 60.00
[2024-06-03 10:26] LABS: % Basophils 0.7 % (0-2); % Eosinophils 1.7 % (0-6); % Immature Granulocytes 1.5 % (0-0.5); % Lymphocytes 5.8 % (20.5-51.1); % Monocytes 4.3 % (1.7-9.3); Absolute Basophils 0.2 10^3/uL (0-0.2); Absolute Eosinophils 0.4 10^3/uL (0-0.7); Absolute Immature Granulocytes 0.3 10^3/uL (0-0.05); Absolute Lymphocytes 1.3 10^3/uL (1.2-3.4); Absolute Monocytes 0.9 10^3/uL (0.1-0.6); Absolute Neutrophils 18.4 10^3/uL (1.4-6.5); Hematocrit 33.2 % (37.0-47.0); Hemoglobin 9.6 g/dL (12.0-16.0); Mean Corp Hgb Conc. 28.9 g/dL (33.0-37.0); Mean Corpuscular Hgb 28.7 pg (27.0-31.0); Mean Corpuscular Volume 99.1 fL (81.0-99.0); Mean Platelet Volume 9.1 fL (7.4-10.4); Nucleated Red Blood Cells % 0 %; Platelet Count 523 10^3/uL (130-400); Red Blood Cell Count 3.35 10^6/uL (4.20-5.40); White Blood Cell Count 21.4 10^3/uL (4.8-10.8)
[2024-06-03 10:27] LABS: Anisocytosis 1+; Hypochromasia 1+; Normal RBC Morphology No; Polychromasia 1+
== END ==
LOC: REG 07:20
PROVIDERS: ATTENDING PHYSICIAN Internal Medicine Hematology & Oncology; FAMILY PHYSICIAN Family Medicine
DX: C50.412 Malignant neoplasm of upper-outer quadrant of left female breast (principal); D50.9 Iron deficiency anemia, unspecified; C18.4 Malignant neoplasm of transverse colon; I73.00 Raynaud's syndrome without gangrene; G62.0 Drug-induced polyneuropathy; M34.9 Systemic sclerosis, unspecified
CPT/HCPCS: 36415; 80053; 85025

== ENCOUNTER → 2024-06-08 14:51 | Outpatient (REF) | payer MEDICARE, SELFPAY ==
[2024-06-08 14:10] LABS: % Basophils 0.6 % (0-2); % Eosinophils 0.4 % (0-6); % Immature Granulocytes 2.2 % (0-0.5); % Lymphocytes 10.8 % (20.5-51.1); % Monocytes 3.7 % (1.7-9.3); % Neutrophils 82.3 % (42.2-75.2); Absolute Basophils 0.1 10^3/uL (0-0.2); Absolute Eosinophils 0.1 10^3/uL (0-0.7); Absolute Immature Granulocytes 0.4 10^3/uL (0-0.05); Absolute Lymphocytes 1.8 10^3/uL (1.2-3.4); Absolute Monocytes 0.6 10^3/uL (0.1-0.6); Absolute Neutrophils 13.8 10^3/uL (1.4-6.5); Hematocrit 30.1 % (37.0-47.0); Hemoglobin 9.2 g/dL (12.0-16.0); Mean Corp Hgb Conc. 30.6 g/dL (33.0-37.0); Mean Platelet Volume 8.8 fL (7.4-10.4); Platelet Count 610 10^3/uL (130-400); Red Blood Cell Count 3.07 10^6/uL (4.20-5.40); Red Cell Dist. Width 19.8 % (11.5-14.5); White Blood Cell Count 16.8 10^3/uL (4.8-10.8)
== END ==
LOC: OIDL 14:51
PROVIDERS: ATTENDING PHYSICIAN Internal Medicine Hematology & Oncology
DX: C50.412 Malignant neoplasm of upper-outer quadrant of left female breast (principal)
CPT/HCPCS: 85025

== ENCOUNTER → 2024-06-09 07:46 | Outpatient (REF) | payer MEDICARE, SELFPAY ==
[2024-06-09 09:35] LABS: % Basophils 0.9 % (0-2); % Immature Granulocytes 1.7 % (0-0.5); % Lymphocytes 9.7 % (20.5-51.1); % Monocytes 2.7 % (1.7-9.3); Absolute Basophils 0.2 10^3/uL (0-0.2); Absolute Eosinophils 0.2 10^3/uL (0-0.7); Absolute Immature Granulocytes 0.3 10^3/uL (0-0.05); Absolute Lymphocytes 1.8 10^3/uL (1.2-3.4); Absolute Monocytes 0.5 10^3/uL (0.1-0.6); Absolute Neutrophils 15.4 10^3/uL (1.4-6.5); Hematocrit 33.7 % (37.0-47.0); Hemoglobin 10.2 g/dL (12.0-16.0); Mean Corp Hgb Conc. 30.3 g/dL (33.0-37.0); Mean Corpuscular Hgb 29.1 pg (27.0-31.0); Mean Corpuscular Volume 96.3 fL (81.0-99.0); Nucleated Red Blood Cells % 0.2 %; Platelet Count 671 10^3/uL (130-400); Red Cell Dist. Width 20.2 % (11.5-14.5); White Blood Cell Count 18.3 10^3/uL (4.8-10.8)
[2024-06-09 10:00] LABS: ALT (SGPT) 36 U/L (0-35); AST (SGOT) 40 U/L (14-36); Albumin 3.6 g/dl (3.5-5.0); Alkaline Phosphatase 157 U/L (38-126); Blood Urea Nitrogen 16 mg/dl (7-17); Calcium 8.9 mg/dl (8.4-10.2); Carbon Dioxide 29 mmol/L (22-30); Chloride 98 mmol/L (98-107); Glucose 89 mg/dl (70-99); Phosphorus 4.8 mg/dl (2.5-4.5); Potassium 4.9 mmol/L (3.5-5.1); Sodium 134 mmol/L (135-145); Total Bilirubin 0.3 mg/dl (0.2-1.3); Total Protein 6.2 g/dl (6.3-8.2); eGFR > 60.00
[2024-06-09 10:08] LABS: Vitamin D, 25-OH*** 25.8 ng/mL (30-80)
[2024-06-09 10:21] LABS: TSH 2.59 uIU/ml (0.47-4.68)
[2024-06-09 13:16] LABS: Urine Albumin 1+ (Neg - Trace); Urine Bilirubin Negative (Negative); Urine Character Clear (Clear); Urine Color Yellow; Urine Glucose Negative (Negative); Urine Ketone Negative (Negative); Urine Leukocyte Negative (Negative); Urine Nitrite Negative (Negative); Urine Occult Blood 3+ (Negative); Urine Urobilinogen Negative (Neg - 1+)
[2024-06-09 13:30] LABS: Urine Red Blood Cell 21-25 /HPF (0-2)
[2024-06-09 13:31] LABS: Urine Bacteria Few (Negative)
[2024-06-09 14:23] LABS: Urine Protein < 5 mg/dl
[2024-06-10 10:34] LABS: Intact PTH 118.3 pg/ml (13.6-85.8)
[2024-06-11 00:09] LABS: tTG IgA Antibody <1.02 FLU (0.00-4.99)
[2024-06-11 03:10] LABS: Endomysial IgA Antibody Titer <1:10 (<1:10)
[2024-06-12 00:59] LABS: IgA 179 mg/dl (70-400)
== END ==
LOC: REG 07:46
PROVIDERS: ATTENDING PHYSICIAN Internal Medicine; FAMILY PHYSICIAN Family Medicine
DX: M06.00 Rheumatoid arthritis without rheumatoid factor, unspecified site (principal); M34.9 Systemic sclerosis, unspecified; M81.0 Age-related osteoporosis without current pathological fracture
CPT/HCPCS: 36415; 80053; 81003; 81015; 82306; 82570; 82784; 83516; 83970; 84100; 84155; 84156; 84165; 84443; 85025; 86231

== ENCOUNTER → 2024-06-12 13:43 | Outpatient (REF) | payer MEDICARE, SELFPAY | LOC: RCS 13:43 | PROVIDERS: ATTENDING PHYSICIAN Internal Medicine; FAMILY PHYSICIAN Family Medicine | DX: R07.9 Chest pain, unspecified (principal); C18.9 Malignant neoplasm of colon, unspecified; I73.00 Raynaud's syndrome without gangrene; T45.1X5A Adverse effect of antineoplastic and immunosuppressive drugs, initial encounter | CPT/HCPCS: 93306; 93356 ==

== ENCOUNTER → 2024-06-13 09:10 | Outpatient (REF) | payer MEDICARE, SELFPAY ==
[2024-06-13 12:13] LABS: Urine Calcium 7.1 mg/dl
[2024-06-13 15:06] LABS: 24 Hour Urine Calcium 53.2 mg/day; 24 Hour Urine Total Volume 750 ml
== END ==
LOC: REG 09:10
PROVIDERS: ATTENDING PHYSICIAN Internal Medicine; FAMILY PHYSICIAN Family Medicine
DX: M06.00 Rheumatoid arthritis without rheumatoid factor, unspecified site (principal); M34.9 Systemic sclerosis, unspecified; M81.0 Age-related osteoporosis without current pathological fracture
CPT/HCPCS: 81050; 82340; 82530

== ENCOUNTER → 2024-06-17 07:09 | Outpatient (REF) | payer MEDICARE, SELFPAY ==
[2024-06-17 08:14] LABS: % Basophils 0.9 % (0-2); % Eosinophils 2.8 % (0-6); % Immature Granulocytes 0.7 % (0-0.5); % Lymphocytes 7.6 % (20.5-51.1); % Monocytes 7.8 % (1.7-9.3); % Neutrophils 80.2 % (42.2-75.2); Absolute Basophils 0.1 10^3/uL (0-0.2); Absolute Eosinophils 0.4 10^3/uL (0-0.7); Absolute Immature Granulocytes 0.1 10^3/uL (0-0.05); Absolute Lymphocytes 0.9 10^3/uL (1.2-3.4); Absolute Neutrophils 9.9 10^3/uL (1.4-6.5); Hemoglobin 8.7 g/dL (12.0-16.0); Mean Corpuscular Hgb 30.2 pg (27.0-31.0); Mean Corpuscular Volume 100.7 fL (81.0-99.0); Mean Platelet Volume 9.2 fL (7.4-10.4); Nucleated Red Blood Cells % 0 %; Platelet Count 373 10^3/uL (130-400); Red Blood Cell Count 2.88 10^6/uL (4.20-5.40); Red Cell Dist. Width 21.4 % (11.5-14.5); White Blood Cell Count 12.3 10^3/uL (4.8-10.8)
[2024-06-17 08:38] LABS: ALT (SGPT) 28 U/L (0-35); AST (SGOT) 29 U/L (14-36); Albumin 3.7 g/dl (3.5-5.0); Alkaline Phosphatase 99 U/L (38-126); Blood Urea Nitrogen 14 mg/dl (7-17); Calcium 8.8 mg/dl (8.4-10.2); Carbon Dioxide 24 mmol/L (22-30); Chloride 104 mmol/L (98-107); Glucose 70 mg/dl (70-99); Potassium 4.1 mmol/L (3.5-5.1); Sodium 137 mmol/L (135-145); Total Bilirubin 0.5 mg/dl (0.2-1.3); eGFR > 60.00
== END ==
LOC: REG 07:09
PROVIDERS: ATTENDING PHYSICIAN Internal Medicine Hematology & Oncology; FAMILY PHYSICIAN Family Medicine
DX: C50.412 Malignant neoplasm of upper-outer quadrant of left female breast (principal); D50.9 Iron deficiency anemia, unspecified; C18.4 Malignant neoplasm of transverse colon; I73.00 Raynaud's syndrome without gangrene; M34.9 Systemic sclerosis, unspecified
CPT/HCPCS: 36415; 80053; 85025

== ENCOUNTER → 2024-07-01 07:26 | Outpatient (REF) | payer MEDICARE, SELFPAY ==
[2024-07-01 08:58] LABS: Hematocrit 36.8 % (37.0-47.0); Hemoglobin 11.5 g/dL (12.0-16.0); Mean Corp Hgb Conc. 31.3 g/dL (33.0-37.0); Mean Corpuscular Hgb 31.9 pg (27.0-31.0); Mean Corpuscular Volume 102.2 fL (81.0-99.0); Mean Platelet Volume 8.8 fL (7.4-10.4); Platelet Count 402 10^3/uL (130-400); Red Cell Dist. Width 22.1 % (11.5-14.5); White Blood Cell Count 39.6 10^3/uL (4.8-10.8)
[2024-07-01 09:39] LABS: ALT (SGPT) 29 U/L (0-35); AST (SGOT) 41 U/L (14-36); Albumin 4.1 g/dl (3.5-5.0); Alkaline Phosphatase 220 U/L (38-126); Blood Urea Nitrogen 19 mg/dl (7-17); Calcium 7.8 mg/dl (8.4-10.2); Carbon Dioxide 26 mmol/L (22-30); Chloride 104 mmol/L (98-107); Glucose 98 mg/dl (70-99); Potassium 4.2 mmol/L (3.5-5.1); Sodium 140 mmol/L (135-145); Total Bilirubin 0.5 mg/dl (0.2-1.3); Total Protein 6.5 g/dl (6.3-8.2); eGFR > 60.00
[2024-07-01 10:56] LABS: % Basophils 0.2 % (0-2); % Eosinophils 0.4 % (0-6); % Lymphocytes 2.9 % (20.5-51.1); % Monocytes 4.3 % (1.7-9.3); % Neutrophils 89.2 % (42.2-75.2); Absolute Basophils 0.1 10^3/uL (0-0.2); Absolute Eosinophils 0.2 10^3/uL (0-0.7); Absolute Immature Granulocytes 1.2 10^3/uL (0-0.05); Absolute Lymphocytes 1.1 10^3/uL (1.2-3.4); Absolute Monocytes 1.7 10^3/uL (0.1-0.6); Absolute Neutrophils 35.4 10^3/uL (1.4-6.5); Nucleated Red Blood Cells % 0 %
== END ==
LOC: REG 07:26
PROVIDERS: ATTENDING PHYSICIAN Internal Medicine Hematology & Oncology; FAMILY PHYSICIAN Family Medicine
DX: C50.412 Malignant neoplasm of upper-outer quadrant of left female breast (principal); D50.9 Iron deficiency anemia, unspecified; C18.4 Malignant neoplasm of transverse colon; I73.00 Raynaud's syndrome without gangrene; G62.0 Drug-induced polyneuropathy; M34.9 Systemic sclerosis, unspecified
CPT/HCPCS: 36415; 80053; 85025

== ENCOUNTER 2024-07-01 20:53 | Inpatient (IN) | payer MEDICARE, SELFPAY ==
[2024-07-01 13:53] VITALS: BP 122/81
--- NOTE | 2024-07-01 14:17 | EDRN ---
IV team was called to access the pts SQ Port per the pts request
[2024-07-01 14:38] VITALS: BMI 22.0
[2024-07-01] MEDS: DILAUDID 0.5 MG IV ×2 (14:40→17:10)
[2024-07-01] MEDS: ZOFRAN 4 MG IV ×2 (14:40→17:10)
[2024-07-01] MEDS: NSS 500 IV (14:41)
[2024-07-01 15:11] LABS: Lipase 69 U/L (23-300)
--- NOTE | 2024-07-01 15:14 | ED.GENMED ---
History of Present Illness
General
Chief Complaint: Abdominal Pain
Source: patient
Exam Limitations: none
Time Seen by Provider: 07/01/24 14:12
Nursing documentation reviewed up to this point in time: agreed with
History of Present Illness
History of Present Illness:
Patient with recently diagnosed colon cancer in March 2024, currently receiving chemotherapy, presents to ED secondary to intermittent abdominal pain over the past 3 days, which has worsened over the past 24 hours with multiple vomiting episodes.
Patient does report having had small bowel movement yesterday morning. Since then, her abdominal pain is has worsened. Abdominal pain described as sharp, diffuse, without any alleviating or exacerbating factors. Denies trauma. Denies fever or
chills. Denies previous history of similar symptoms. Patient does speak with her oncologist and was recommended to come to ED for an evaluation, with concern for potential bowel obstruction.
Past History
Past History
ED Past Medical History: None
ED Past Surgical History: None
Review of Systems
Review of Systems
Allergies reviewed?: Yes
All Other Systems: ROS reviewed and negative except as documented in HPI and ROS
Constitutional: Reports no symptoms; Denies fever or chills
Respiratory: Reports no symptoms
Cardiac: Reports no symptoms
ABD/GI: Reports abdominal pain, nausea and vomiting; Denies diarrhea
Musculoskeletal: Reports no symptoms
Skin: Reports no symptoms
Neurological: Reports no symptoms
Phy Exam
Physical Exam
Physical Exam:
Physical Exam
General: moderate painful distress, acutely ill. afebrile.
Head: nc/at. eomi
Neck: supple. normal range of motion.
Heart: s1/s2 regular rate and rhythm, no murmur. equal radial pulses.
Lungs: no acute respiratory distress. clear bilaterally
Abdomen: normal bowel sounds. mild diffuse tenderness to palpation, without distention.
Neuro: alert and oriented x 3. no focal neurological deficits
Skin: no rash
Psychiatric: well kept. interactive and cooperative
Extremities: no edema. no calf tenderness.
Course
Orders/Labs/Results
Orders:
Orders
07/01/24 14:16
HYDROmorphone [Dilaudid] 0.5 mg IV NOW STA
Ondansetron Injectable [Zofran] 4 mg IV NOW STA
CR Obstruct Series W/pa Chest Urgent
Comment:
Reason For Exam: abd pain
07/01/24 14:17
0.9% Sodium Chloride 500 ml [Nss] 500 ml IV BOLUS
07/01/24 14:20
Add On- LAB Urgent
Tests Added?: lipase
07/01/24 14:42
Lipase Urgent
07/01/24 15:07
CT Abd/pel W Iv And Oral Contr Urgent
Comment:
Reason For Exam: abdominal pain w abnormal x-ray
Iohexol [Omnipaque] See Protocol PO NOW STA
07/01/24 17:03
HYDROmorphone [Dilaudid] 0.5 mg IV NOW STA
Ondansetron Injectable [Zofran] 4 mg IV NOW STA
07/01/24 20:15
0.9% Sodium Chloride 1000 ml [Nss] 1,000 ml IV 100 mls/hr
07/01/24 20:31
Admit/Transfer Patient As Directed
Co-Sign Provider:
Level of Care: Inpatient admission
Assign to:: Medical/Surgical
Physician / Group: [email or web address]
Diagnosis: Large & small BWO, Colon CA
Reason for Hospitalization: Large & small BWO, Colon CA
Expected length of stay greater than two midnights?: Yes
ELOS- Estimated Length of Stay in days: 3
I certify the patient meets the requirements for IP care: Yes
07/01/24 20:33
Code Status As Directed
Resuscitation Status: Full Code
07/01/24 21:57
0.9% Sodium Chloride 1000 ml [Nss] 1,000 ml IV 80 mls/hr
Bisacodyl [Dulcolax] 10 mg RECTAL [id number] PRN
Docusate W/Senna [Senokot-S] 1 tablet PO BIDPRN PRN
HYDROmorphone [Dilaudid] 0.5 mg IV Q4HPRN PRN
Ondansetron Injectable [Zofran] 4 mg IV Q6HPRN PRN
Polyethylene Glycol Powder [Miralax] 17 grams PO DAILYPRN PRN
07/01/24 21:57
Colon Surgery Consult [ColoRectal Surgery Consult] Routine
Consulting Provider: Mike Kearns
Was physician already notified: Yes
Reason for consult: Large & small BWO, Colon CA
Activity As Directed
Activity Level: With Assistance
Intake/ Output As Directed
Frequency: Per unit guidelines
Vital Signs As Directed
Frequency: Per unit guidelines
DX Deep Vein Thrombosis Video Routine
07/02/24 Breakfast
NPO
Allow oral meds: No
Allow clear liquids: No
NPO with Ice Chips: Yes
Basic Metabolic Panel IN AM
Complete Blood Count/With Diff IN AM
07/02/24 18:00
Enoxaparin Sodium [Lovenox] 40 mg SC QPM
Vital Signs
Initial and Last Documented VS:
Initial Vital Signs
Temp Pulse Resp BP Pulse Ox
98.4 F 103 16 122/81 96
07/01/24 13:53 07/01/24 13:53 07/01/24 13:53 07/01/24 13:53 07/01/24 13:53
Last Documented Vital Signs
Temp Pulse Resp BP Pulse Ox
98.1 F 96 18 139/85 97
07/01/24 22:09 07/01/24 22:09 07/01/24 22:09 07/01/24 22:09 07/01/24 22:09
MDM/Problems Addressed
MDM/Problems Addressed:
History, exam, and CT scan consistent with bowel obstruction. Symptoms improved after medication provided. As such, we will hold off NG tube placement for now.
Unfortunately, patient's symptoms consisting of nausea with pain has returned. As such, will place NG tube now.
Dr. Kearns, surgery, notified via [employer]
*Critical Care Note
Total Time (30-74mins, 75-104mins- exclusive of procedures): Not Applicable
ED Attending Note
-
Portions of this chart may have been created with voice recognition software.� Occasional wrong word or��sound alike� substitutions may have occurred due to the inherent limitations of voice recognition software.
Discharge Plan
Departure
Patient Disposition: Admit
Date of Disposition: 07/01/24
Time of Disposition: 20:06
Admit to: Med/Surg
Presentation/result/management discussed w/ accepting MD/DO: Hospitalist
Discharge Problem:
Bowel obstruction
Interventions
Interventions:
*Risk Screen - Suicide Last Done: 07/01/24 13:53
*General Assessment Last Done: 07/01/24 13:53
*Neglect/Abuse Screening Last Done: 07/01/24 13:53
*ED- Fall Risk Assessment Last Done: 07/01/24 13:53
*ED COVID-19 Vaccine History Last Done: 07/01/24 22:09
*Nursing Disposition Last Done: 07/01/24 21:56
JR-Jetssa-Vulyrffpqu Assessment Last Done: 07/01/24 13:53
Discharge Date and Time
Discharge Date/Time: 07/01/24 21:57
[2024-07-01] MEDS: OMNIPAQUE 50 ML PO (15:50)
[2024-07-01 15:55] VITALS: BP 132/86
[2024-07-01 16:00] VITALS: BP 127/82
[2024-07-01 17:00] VITALS: BP 127/82
[2024-07-01 18:09] VITALS: BP 117/73
[2024-07-01] MEDS: NSS 1000 IV (20:22)
--- NOTE | 2024-07-01 20:27 | HPS.HSE ---
Family Physician
-
Family Physician: Amando Martinez MD
Chief Complaint
-
abdominal pain and vomiting
History of Present Illness
69F Dxed colon cancer in March 2024, currently receiving chemotherapy seen at ER :
- intermittent abdominal pain over the past 3 days,decribed as sharp, diffuse, without any alleviating or exacerbating factors. - pain worsened over the past 24 hours
- POS multiple vomiting episodes.
- small bowel movement yesterday morning
Patient does speak with her oncologist and was recommended to come to ED
ROS
Denies trauma. Denies fever or chills.
Denies previous history of similar symptoms.
Medical History
Past Medical History
Past Medical History: Reports Cancer (Dxed colon cancer in March 2024,) and Hypothyroidism
Past Surgical History: Reports None
Social History
Tobacco: Non-smoker
Alcohol: None
Drug: None
Family History
Family History: Not pertinent
Allergies / Home Medications
Allergies reflects when Allergies were last updated in [facility].
Home Medications with original date entered in [facility]
Allergy/Medication List:
Allergies
Allergy/AdvReac Type Severity Reaction Status Date / Time
SHELLEY Inhibitors Allergy Severe Anaphylaxis Verified 07/01/24 13:56
adhesive Allergy RASH FROM Verified 07/01/24 13:56
SURGICAL
TAPE
Penicillins Allergy Hives Verified 07/01/24 13:56
Home Medications
levothyroxine 25 mcg tablet 25 mcg PO DAILY 05/11/22
acetaminophen 500 mg tablet 500 mg PO Q6H PRN pain 04/21/24
famotidine 10 mg tablet 10 mg PO HS 04/21/24
polyethylene glycol 3350 17 gram oral powder packet (Miralax) 17 g PO BID 04/21/24
tramadol 50 mg tablet 50 mg PO Q6H PRN pain 04/21/24
omeprazole 20 mg tablet,delayed release 20 mg PO DAILY 04/27/24
hydromorphone 2 mg tablet (Dilaudid) 2 mg PO Q6H PRN Pain #10 tabs 04/30/24
prochlorperazine maleate 10 mg tablet 10 mg PO Q8H PRN Nausea 05/12/24
Review of Systems
-
Constitutional: Reports No Symptoms
EENT: Reports No Symptoms
Respiratory: Reports No Symptoms
Cardiac: Reports No Symptoms
Abdomen/GI: Reports Abdominal Pain, Nausea and Vomiting
: Reports No Symptoms
Musculoskeletal: Reports No Symptoms
Skin: Reports No Symptoms
Neurological: Reports No Symptoms
Endocrine: Reports No Symptoms
Hematologic/Lymphatic: Reports No Symptoms
Psych: Reports No Symptoms
Physical Exam
Vital Signs
Vital Signs
Temp Pulse Resp BP Pulse Ox
98.6 F 84 20 117/73 93
07/01/24 13:53 07/01/24 17:00 07/01/24 17:00 07/01/24 18:09 07/01/24 20:15
Physical Exam
General: Well Developed, Well Nourished and No Apparent Distress
HEENT: NormoCephalic, Moist mucous membranes and Atraumatic
Respiratory: Clear
Cardiac: S1/S2 and Regular Rhythm; No Murmur or Rub
GI: Tender (mild diffuse tenderness to palpation, without distention)
Rectal: Deferred by Provider
Musculoskeletal: No Clubbing, No Cyanosis and No Edema
Skin: No Rash
Neuro: AO x 3 and Nonfocal/grossly intact
Laboratory Results
-
Laboratory Results
Lipase 69 U/L (23-300) 07/01/24 14:42
Data Reviewed
-
CT Scan: Report Reviewed by me
Lab Data: Labs Reviewed by me
Old Records: Reviewed
Impression/Plan
-
Selected Entries
07/01/24
13:53 07/01/24
13:53
Temp 98.4 F
Pulse 103 81
SaO2 96
Oxygen Mode of Delivery Room air
Lab
06/17/24 07/01/24 07/01/24
07:24 07:54 14:42
WBC 39.6 H
Hgb 8.7 L 11.5 L
MCV 100.7 H 102.2 H
Plt Count 373 402 H
BUN 19 H
Creatinine 0.5 L
eGFR > 60.00
Calcium 7.8 L
AST 41 H
ALT 29
Alkaline Phosphatase 220 H
[address] Abd/pel W Iv
- New finding suggesting developing large and small bowel obstruction/ileus due to a known malignancy of the proximal transverse colon which has significantly decreased in size.
- Evaluation for obstruction is limited without oral contrast.
- Hepatic fatty infiltration. Stable
- stable too small to characterize hypodense splenic lesion likely a small cyst or hemangioma
- too small to characterize hypodense left renal lesion. Stable
- Few nonobstructing right renal stones. Stable
06/12/24 TTE
Normal left ventricular size, wall thickness and systolic function.
LVEF 55-60% .
Trace MR
Trace AR
Mild TR
Global longitudinal strain - -22.1%
Compared to the previous report 08/24/2023 strain is now reported.
Previous reported color-flow and suprasternal notch views is not appreciated on the most recent study
NO PRIOR hospitalist admission:
ASSESSMENT & PLAN
Large & small BWO with several episodes of vomiting
Current CT AP suggest significantly decreased in size of [place] colon mass
Under ongoing chemotherapy for Colon CA Dxed in Mar 2024
Hemodynamically stable
- Patient agree with NGT placement
- NGT is indicated dye to repeated emesis
- NPO and IV NS
- PRN narcotic analgesia
- PRN Anti emetics
- CRS consult
Leucocytosis - Leukemoid reaction
- denied recent GCSF with ongoing chemo
- Trend WCC
Hypothyroid on LT4 25 mg daily
- can switch to IV LT4 while NPO
DVT Px: LMWH
Full code
IP MS
[2024-07-01 22:09] VITALS: BP 139/85
[2024-07-01 22:10] VITALS: BMI 21.7
[2024-07-01] MEDS: NSS IV (22:35)
--- NOTE | 2024-07-02 04:42 | PTCARENOTE ---
07/01 2199 late entry: pt admitted to 2109 from ER via stretcher. pt ambulated to bed, NG tube in place Rt nares at 55cm. order obtained from TEAM SUPERVISOR for NG to LWIS, no irrigation. IVF NSS infusing at 100cc/hr. pt oriented to room, call carpenter and POC. pt
verb understanding. Medications reviewed. Call carpenter within reach.
[2024-07-02] MEDS: ZOFRAN 4 MG IV (06:02)
[2024-07-02] MEDS: DILAUDID 0.5 MG IV ×2 (06:03→18:12)
[2024-07-02] MEDS: NSS 1000 IV ×2 (06:12→11:37)
[2024-07-02 07:23] VITALS: BP 102/63
[2024-07-02] MEDS: NSS IV (08:20)
[2024-07-02 10:02] LABS: Hematocrit 33.2 % (37.0-47.0); Hemoglobin 10.3 g/dL (12.0-16.0); Mean Corpuscular Hgb 31.7 pg (27.0-31.0); Mean Corpuscular Volume 102.2 fL (81.0-99.0); Mean Platelet Volume 8.9 fL (7.4-10.4); Platelet Count 324 10^3/uL (130-400); Red Blood Cell Count 3.25 10^6/uL (4.20-5.40); Red Cell Dist. Width 21.9 % (11.5-14.5); White Blood Cell Count 28.4 10^3/uL (4.8-10.8)
[2024-07-02 10:27] LABS: Blood Urea Nitrogen 13 mg/dl (7-17); Calcium 7.1 mg/dl (8.4-10.2); Carbon Dioxide 26 mmol/L (22-30); Chloride 107 mmol/L (98-107); Estimated Creatinine Clearance 74 ml/min; Glucose 88 mg/dl (70-99); Potassium 4.5 mmol/L (3.5-5.1); Sodium 140 mmol/L (135-145); eGFR > 60.00
[2024-07-02 10:35] LABS: % Basophils 0.4 % (0-2); % Eosinophils 0.7 % (0-6); % Immature Granulocytes 1.9 % (0-0.5); % Lymphocytes 5.7 % (20.5-51.1); % Monocytes 4.2 % (1.7-9.3); % Neutrophils 87.1 % (42.2-75.2); Absolute Basophils 0.1 10^3/uL (0-0.2); Absolute Eosinophils 0.2 10^3/uL (0-0.7); Absolute Immature Granulocytes 0.5 10^3/uL (0-0.05); Absolute Lymphocytes 1.6 10^3/uL (1.2-3.4); Absolute Monocytes 1.2 10^3/uL (0.1-0.6); Absolute Neutrophils 24.7 10^3/uL (1.4-6.5); Nucleated Red Blood Cells % 0 %
--- NOTE | 2024-07-02 10:44 | W.PN.HOSP.TC ---
Today's Communication/Plan
-
Monitor vital signs see plan
Maintain n.p.o.
Surgery following
Monitor bowel function
add PPI
add IV thyroid if remains NPO
Assessment / Plan
Assessment / Plan
General: Well Developed, Well Nourished and No Apparent Distress
HEENT: NormoCephalic, Moist mucous membranes and Atraumatic
Respiratory: Clear
Cardiac: S1/S2 and Regular Rhythm; No Murmur or Rub
GI: Mild abdominal tenderness, distention improved
Musculoskeletal: No Edema
Skin: No Rash
Neuro: AO x 3 and Nonfocal/grossly intact
Large & small BWO with several episodes of vomiting
Current CT AP suggest significantly decreased in size of [place] colon mass
Under ongoing chemotherapy for Colon CA Dxed in Mar 2024
Hemodynamically stable
Status post NG tube, seen by surgery this morning DC'd NG tube
Monitor bowel function
Fluids
N.p.o. for now, diet per surgery
CT scan appears decreasing colon mass, defer to surgery if this can be operated
Follows up with Dr. Roberts for chemotherapy.
- PRN narcotic analgesia
- PRN Anti emetics
Leucocytosis -likely leukemoid reaction, no signs of fever
- denied recent GCSF with ongoing chemo
Monitor leukocytosis
Nonobstructing renal stone
Monitor
GERD
PPI
Hypothyroid on LT4 25 mg daily
- can switch to IV LT4 if remains n.p.o. for 48 to 72 hours
DVT Px: LMWH
Full code
Anticipated Discharge: > 48 hours
Subjective/Interval History
-
Date of Service: July 02, 2024
denies pain
Objective Data
-
Labs:
Laboratory Results
07/02/24
09:09
WBC 28.4 H
Hgb 10.3 L
Hct 33.2 L
Plt Count 324
Sodium 140
Potassium 4.5
Chloride 107
Carbon Dioxide 26
BUN 13
Creatinine 0.5 L
Glucose 88
Calcium 7.1 L
Vital Signs:
Vital Signs
Temp Pulse Resp BP Pulse Ox
97.8 F 90 14 102/63 94
07/02/24 07:23 07/02/24 07:23 07/02/24 07:23 07/02/24 07:23 07/02/24 07:23
I&O
07/01/24 07/02/24 07/03/24
06:59 06:59 06:59
Intake Total 850 / 850
Output Total 150 / 150
Balance 700 / 700
[2024-07-02] MEDS: PROTONIX IV 40 MG IV (11:37)
[2024-07-02] MEDS: NSS (PRESERVATIVE FREE) 10 ML IV (11:38)
--- NOTE | 2024-07-02 13:20 | CON.CRS ---
Addendum entered and electronically signed by Mike Kearns MD 07/02/24 14:28:
Patient seen and examined.
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 She reports she finished her 5th cycle
of chemotherapy on June 22 and is due to start the next early this week. She had initially been doing very well with PO tolerance and over the past weeks has gradually increased her PO intake to include a larger variety of foods. However, over the
last week, she has reports she has had worsening bloating and abdominal cramping which increased with onset of nausea and vomiting Wednesday into Wednesday causing her to present for evaluation. She denies fevers or chills. An NGT was placed in the ED
with relief in nausea although she is still having waves of cramping pain in her abdomen. She has been passing gas but no BM's since yesterday morning when she was able to pass a small stool.
Gen: NAD
Abd: soft, minimal tenderness, minimal distension, non-peritoneal, palpable mass within RUQ
Labs and imaging reviewed
69 yo F with a PMH of metastatic colon CA (T4b) dx March 2024 on chemotherapy known to Brant Girard and Alejandra who presents with partial bowel obstruction.
CT imaging reviewed and suggestive of developing partial large bowel obstruction secondary to known malignancy although the tumor has decreased in size. NGT placed in ED with relief of nausea. Leukocytosis present with a WBC of 28.4. Chronic anemia
noted and stable. No plans for surgical intervention at this time. Recommend medical management. Will need further discussion with her surgeon Dr. Girard and oncologist Dr. Roberts regarding management going forward and timing of surgery.
--No plans fo surgery at this time
--D/C NGT
--OK for sips of clears today
--Analgesics/antiemetics prn
--Hold PO bowel regimen at this point
--Lovenox for VTE ppx
Original Note:
Consultation
-
Date/Time Consultation Requested: 07/01/242156
Requesting Provider: Karl
Medical History
-
Chief Complaint: ABD pain/bloating
History of Present Illness:
Ms Watts is a 69 yo female with a h/o crohn's dz, gastric bypass, abdominoplasty, cholecystectomy currently on chemotherapy for metastatic colon CA (T4b) dx March 2024. She reports she finished her 5th cycle of chemotherapy on June 22 and is
due to start the next early this week. She had initially been doing very well with PO tolerance and over the past weeks has gradually increased her PO intake to include a larger variety of foods. However, over the last week, she has reports she has
had worsening bloating and abdominal cramping which increased with onset of nausea and vomiting Wednesday into Wednesday causing her to present for evaluation. She denies fevers or chills. An NGT was placed in the ED with relief in nausea although she
is still having waves of cramping pain in her abdomen. She has been passing gas but no BM's since yesterday morning when she was able to pass a small stool.
Past Medical History
Past Medical History: Cancer (Breast Ca, Tx left lumpectomy with chemo/xrt 2011, Colon Ca currently on chemo), Hypothyroidism and Other (Crohn's, renal calculi)
Past Surgical History: Bariatric (gastric bypass 2009), Cholecystectomy, Tonsilectomy, Urological (lithotripys/ureteroscopy for stone) and Other (BL mastectomy 2019, Abdominoplasty)
Social History
Tobacco: Non-Smoker
Alcohol: None
Family History
Family History: Reviewed & Not Pertinent and Cancer (mother breast)
Allergies / Home Medications
Allergy/AdvReac Type Severity Reaction Status Date / Time
SHELLEY Inhibitors Allergy Severe Anaphylaxis Verified 07/01/24 13:56
adhesive Allergy RASH FROM Verified 07/01/24 13:56
SURGICAL
TAPE
Penicillins Allergy Hives Verified 07/01/24 13:56
�Medication �Instructions �Recorded �Confirmed �Type
levothyroxine mcg tablet 25 mcg PO DAILY 05/11/22 07/02/24 History
acetaminophen 500 mg tablet 500 mg PO Q6H PRN pain 04/21/24 07/02/24 History
famotidine 10 mg tablet 10 mg PO HS 04/21/24 07/02/24 History
polyethylene glycol 3350 17 gram 17 g PO BID PRN constipation 04/21/24 07/02/24 History
oral powder packet (Miralax)
tramadol 50 mg tablet 50 mg PO Q12H 04/21/24 07/02/24 History
omeprazole 20 mg tablet,delayed 20 mg PO DAILY 04/27/24 07/02/24 History
release
prochlorperazine maleate 10 mg 10 mg PO Q8H PRN Nausea 05/12/24 07/02/24 History
tablet
hydromorphone 2 mg tablet 2 mg PO Q6H PRN was never able to 07/02/24 History
(Dilaudid) fill rx
ondansetron HCl 4 mg tablet 4 mg PO Q8H PRN nausea 07/02/24 07/02/24 History
Review of Systems
-
History Source: Patient
All other systems: Negative unless noted
A 10 point review of systems was completed, and was negative except as per HPI.
Physical Exam
Vital Signs
Temp 97.8 F 07/02/24 07:23
Pulse 90 07/02/24 07:23
Resp Rate 14 07/02/24 07:23
Blood pressure 102/63 07/02/24 07:23
SaO2 94 07/02/24 07:23
07/01/24 07/02/24 07/03/24
06:59 06:59 06:59
Actual Weight 55.537 kg
Body Mass Index (BMI) 21.7
Lab Results / Allergies
07/02/24 09:09
07/02/24 09:09
WBC 28.4 10^3/uL (4.8-10.8) H 07/02/24 09:09
Hgb 10.3 g/dL (12.0-16.0) L 07/02/24 09:09
Hct 33.2 % (37.0-47.0) L 07/02/24 09:09
Plt Count 324 10^3/uL (130-400) 07/02/24 09:09
Abs Immat Gran (auto) 0.5 10^3/uL (0-0.05) H 07/02/24 09:09
Neutrophils % 87.1 % (42.2-75.2) H 07/02/24 09:09
Allergy/AdvReac Type Severity Reaction Status Date / Time
SHELLEY Inhibitors Allergy Severe Anaphylaxis Verified 07/01/24 13:56
adhesive Allergy RASH FROM Verified 07/01/24 13:56
SURGICAL
TAPE
Penicillins Allergy Hives Verified 07/01/24 13:56
Physical Exam
General: Well Developed and Well Nourished
HEENT: Moist Mucous Membranes
Respiratory: Non Labored Respirations
GI: Soft, Non Tender and Distended (mild)
Skin: Warm
Neuro: Awake, Alert and AO x 3
Psych: Calm
Assessment / Plan
-
69 yo female with a h/o metastatic colon CA (T4b) dx March 2024 on chemotherapy known to Brant Barrios who presents with n/v/abdominal pain gradually over the last week. NGT placed in ED with relief of nausea. AFVSS. Leukocytosis
present with a WBC of 28.4. Chronic anemia noted and stable. CT imaging reviewed and suggestive of developing partial large bowel obstruction secondary to known malignancy although the tumor has decreased in size. Pain/nausea improved.
--D/C NGT
--Ok for sips of clears today
--Analgesics/antiemetics prn
--Hold PO bowel regimen at this point
--Lovenox for VTE ppx
[2024-07-02 15:20] VITALS: BP 97/60
--- NOTE | 2024-07-02 16:52 | CM ---
Patient with Hx colon CA on chemo with Port with Dx bowel obstruction. Room air. Sips clears. Per nursing; ambulatory in halls.
Met with patient who resides with her spouse Dot in a 2 story house.
The patient was independent in ADLs and ambulation.
The patient has no DME or prior VN.
PCP - Amando Martinez
Pharmacy - [facility]
No CM d/c needs identified.
Plan home.
[2024-07-02] MEDS: LOVENOX 40 MG SC (17:04)
[2024-07-02 23:00] VITALS: BP 103/60
[2024-07-03] MEDS: NSS IV (06:20)
[2024-07-03] MEDS: NSS 1000 IV (06:20)
[2024-07-03 06:32] LABS: % Basophils 0.6 % (0-2); % Immature Granulocytes 1.9 % (0-0.5); % Lymphocytes 5.2 % (20.5-51.1); % Monocytes 3.8 % (1.7-9.3); % Neutrophils 86.5 % (42.2-75.2); Absolute Basophils 0.1 10^3/uL (0-0.2); Absolute Eosinophils 0.4 10^3/uL (0-0.7); Absolute Immature Granulocytes 0.4 10^3/uL (0-0.05); Absolute Lymphocytes 1.2 10^3/uL (1.2-3.4); Absolute Monocytes 0.9 10^3/uL (0.1-0.6); Absolute Neutrophils 19.3 10^3/uL (1.4-6.5); Hematocrit 32.5 % (37.0-47.0); Hemoglobin 9.9 g/dL (12.0-16.0); Mean Corp Hgb Conc. 30.5 g/dL (33.0-37.0); Mean Corpuscular Hgb 31.9 pg (27.0-31.0); Mean Corpuscular Volume 104.8 fL (81.0-99.0); Mean Platelet Volume 9.2 fL (7.4-10.4); Nucleated Red Blood Cells % 0 %; Platelet Count 261 10^3/uL (130-400); Red Cell Dist. Width 21.6 % (11.5-14.5); White Blood Cell Count 22.3 10^3/uL (4.8-10.8)
[2024-07-03 07:09] LABS: Blood Urea Nitrogen 10 mg/dl (7-17); Calcium 6.7 mg/dl (8.4-10.2); Carbon Dioxide 25 mmol/L (22-30); Chloride 109 mmol/L (98-107); Estimated Creatinine Clearance 74 ml/min; Glucose 64 mg/dl (70-99); Potassium 4.2 mmol/L (3.5-5.1); Sodium 140 mmol/L (135-145); eGFR > 60.00
[2024-07-03 07:20] VITALS: BP 157/74
[2024-07-03] MEDS: NSS (PRESERVATIVE FREE) 10 ML IV (07:25)
[2024-07-03] MEDS: FLUSH (NSS) 1 FLUSH IV (07:26)
[2024-07-03] MEDS: PROTONIX IV 40 MG IV (07:26)
--- NOTE | 2024-07-03 07:36 | PTCARENOTE ---
Patient with critical lab value: Calcium 6.7. Dr. Nina notified via TT. Plan of care ongoing.
[2024-07-03] MEDS: CALCIUM GLUCONATE 100 IV (07:41)
[2024-07-03 08:13] LABS: ALT (SGPT) 21 U/L (0-35); AST (SGOT) 25 U/L (14-36); Albumin 3.2 g/dl (3.5-5.0); Alkaline Phosphatase 171 U/L (38-126); Direct Bilirubin 0.2 mg/dl (0.0-0.4); Magnesium 2.5 mg/dl (1.6-2.3); Phosphorus 2.5 mg/dl (2.5-4.5); Total Bilirubin 0.4 mg/dl (0.2-1.3); Total Protein 5.2 g/dl (6.3-8.2)
--- NOTE | 2024-07-03 08:42 | W.PN.CRS1 ---
Today's Communication / Plan
-
as below
Assessment/Plan
-
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
hypothyroidism, GERD who presented with worsening abdominal pain associated with nausea and vomiting. CT scan shows large bowel obstruction with dilated proximal loops of small bowel associated with transverse colon cancer, cancer has significantly
decreased in size.
AFVSS
WBC 22.3 from 28.4, Hb 9.9 from 10.3, CR 0.6
� Large bowel obstruction due to transverse colon cancer
�Not having much bowel function, but no longer nauseous; concern for impending complete obstruction
�Would recommend diverting loop ileostomy in order to prevent complications of complete obstruction and facilitate return to chemotherapy
�Recommend oncology consult
�Strict n.p.o., continue IVF
� Continue pain control with Dilaudid as needed
� Continue DVT PPx with Lovenox
� Encourage IS, OOB
� Appreciate hospitalist
Subjective Data
Subjective Data
Date of Service: July 03, 2024
Denies nausea or vomiting this a.m. Pain is persistent, but controlled with pain medication. Denies any flatus or BMs. Voiding
Objective Data
-
Vital Signs
Temp Pulse Resp BP Pulse Ox
98.7 F 86 16 157/74 98
07/03/24 07:20 07/03/24 07:20 07/03/24 07:20 07/03/24 07:20 07/03/24 07:20
Intake & Output
07/02/24 07/03/24 07/04/24
06:59 06:59 06:59
Intake Total 850 / 850 480 / 480
Output Total 150 / 150
Balance 700 / 700 480 / 480
Intake:
Oral fluids 850 / 850 480 / 480
Output:
Gastrointestinal tube output ( 150 / 150
Total)
Reserve Sump 150 / 150
Other:
Number of approximated SMALL 3
amounts of urine
Number of approximated MODERATE 5
amounts of urine
Lab Results
07/03/24 06:15
07/03/24 06:15
Physical Exam
-
General: No Acute Distress and AOx3
HEENT: Grossly Normal
Abdomen: Soft, Distended (Mildly distended with tympany), Non Tender, No Guarding and No Rebound
Skin: Warm and Dry
[2024-07-03 09:21] LABS: Ionized Calcium 1.06 mMOL/L (1.15-1.33)
[2024-07-03] MEDS: DILAUDID 0.5 MG IV ×2 (09:57→23:20)
--- NOTE | 2024-07-03 10:42 | W.PN.HOSP.TC ---
Today's Communication/Plan
-
d5LR
onc consult
Assessment / Plan
Assessment / Plan
69yo F with PMHx of colon CA diagnosed in 2023 on chemo, hypothyroidism, GERD came with 2 days of nausea, vomiting and found large and small bowel obstruction 2/2 malignancy of transverse colon
A/P:
#Developing SBO and LBO 2/2 colon CA
NPO
IVF
Colorectal Sx planning for diverting loop ileostomy
Oncology
pain mgmt
#Leukocytosis
Most likely 2/2 recent chemo
monitor
#Splenic cyst vs hemangioma
#L renal lesion, too small to characterize
follow up imaging advised in 6-12 mo with oncology
#Non-obstructing nephrolithiasis
monitor
#Hypothyroidism
check TSH
Plan to start IV Levothyroxine depending on value
#fatty liver disease
low fat diet
#GERD
cont famotidine
DVT ppx SCDs
Full code
I have spent at least 57min reviweing chart, test results, communication with consultants and providing direct patient care
Anticipated Discharge: > 48 hours
Subjective/Interval History
-
Date of Service: July 03, 2024
Objective Data
-
Labs:
Laboratory Results
07/03/24
06:15
WBC 22.3 H
Hgb 9.9 L
Hct 32.5 L
Plt Count 261
Sodium 140
Potassium 4.2
Chloride 109 H
Carbon Dioxide 25
BUN 10
Creatinine 0.4 L
Glucose 64 L
Calcium 6.7 L*
Total Bilirubin 0.4
AST 25
ALT 21
Alkaline Phosphatase 171 H
Vital Signs:
Vital Signs
Temp Pulse Resp BP Pulse Ox
98.7 F 86 16 157/74 97
07/03/24 07:20 07/03/24 07:20 07/03/24 07:20 07/03/24 07:20 07/03/24 10:05
I&O
07/02/24 07/03/24 07/04/24
06:59 06:59 06:59
Intake Total 850 / 850 480 / 480
Output Total 150 / 150
Balance 700 / 700 480 / 480
Review of Systems
-
History Source: Patient
All other systems: Reviewed and negative
Physical Exam
-
General: No Apparent Distress
HEENT: Normocephalic
GI: Soft, Nontender and Nondistended
Skin: Warm
Neuro: Awake, Alert, Oriented and AO x 3
Psych: Calm
[2024-07-03 11:28] VITALS: BMI 21.7
[2024-07-03] MEDS: D5LR 500 IV ×3 (11:30→23:19)
--- NOTE | 2024-07-03 14:33 | CM ---
Chart reviewed
NPO; IVF's
Oncology consult
Plan - tbd pend pt needs; anticipate home vs home with VN
--- NOTE | 2024-07-03 15:00 | WOUNDNOTE ---
WANDA RN NOTE: Stoma sited patient as requested, patient states she is having an ileostomy for colon cancer. Avoided creases and scars, identified rectus muscle. LUQ marked 6.5cm from midline and 5cm proximal from umbilical line. LLQ marked 9cm from
midline and 1.5cm distal from umbilical line. RUQ marked 7cm from midline and 3cm proximal from umbilical line. RLQ marked 7cm from midline and 2.5cm distal from umbilical line. Will follow.
[2024-07-03 16:06] LABS: TSH 1.32 uIU/ml (0.47-4.68)
[2024-07-03 16:10] VITALS: BP 149/68
[2024-07-03 23:10] VITALS: BP 113/59
[2024-07-03] MEDS: ZOFRAN 4 MG IV (23:20)
--- NOTE | 2024-07-03 23:31 | CON.ONC ---
Impression
Impression
Locally advanced colon cancer undergoing neoadjuvant chemotherapy
Small +/- large bowel obstruction
Hx breast cancer, currently EVERARDO
Scleroderma
Hx bariatric surgery
Fatty liver
Plan
Plan
Pt responding well to chemotherapy.
Agree with plan for diverting ostomy to allow her to continue chemotherapy. Goal is eventual resection with curative intent.
Counts adequate for surgery.
Thank you for consult, will follow along with you.
Patient History
History of Present Illness
Felipa Watts is a 69 yo female with a PMH of GERD, hypothyroid, scleroderma, Crohn's, lap gastric bypass, abdominoplasty, cholecystectomy. She is currently on neoadjuvant chemotherapy for locally advanced colon cancer (T4) dx March 2024. She
reports she finished her 4th cycle of chemotherapy on June 20. She had initially been doing very well with PO tolerance and over the past weeks has gradually increased her PO intake to include a larger variety of foods. However, over the last
week, she has reports she has had worsening bloating and abdominal cramping which increased with onset of nausea and vomiting Wednesday into Wednesday causing her to present for evaluation. She denies fevers or chills. An NGT was placed in the ED with
relief in nausea although she is still having waves of cramping pain in her abdomen. Imaging showed improvement in size of tumor but impending bowel obstruction. Pt is not getting Avastin, just FOLFIRI. Denies fevers/chills. Diverting ostomy under
consideration.
Past-Medical/Surgical History
Past Medical History:
Systemic sclerosis, unspecified
Drug-induced polyneuropathy
Raynaud's syndrome without gangrene
Malignant neoplasm of transverse colon
Iron deficiency anemia, unspecified
Malignant neoplasm of upper-outer quadrant of left female breast
Obstructive sleep apnea
Hypothyroid
Past Surgical History:
Lumpectomy 1996
Left breast lumpectomy + AND 09/2010
B/l mastectomy 05/02/2024
Social:
Denies tobacco, alcohol.
Seen along with domestic partner.
Retired clinical psychologist
Family:
Father: skin, prostate,Heart disease, Hypertension,
Mother: inflammatory breast, stroke, hypertension, heart disease
Brother, prostate, bladder
Patient Medication
�Medication �Instructions �Recorded �Confirmed �Last Taken �Type
levothyroxine 25 mcg tablet 25 mcg PO DAILY 05/11/22 07/02/24 07/01/24 History
acetaminophen 500 mg tablet 500 mg PO Q6H PRN pain 04/21/24 07/02/24 06/29/24 History
famotidine 10 mg tablet 10 mg PO HS 04/21/24 07/02/24 06/29/24 History
polyethylene glycol 3350 17 gram 17 g PO BID PRN constipation 04/21/24 07/02/24 05/04/24 History
oral powder packet (Miralax)
tramadol 50 mg tablet 50 mg PO Q12H 04/21/24 07/02/24 07/01/24 History
omeprazole 20 mg tablet,delayed 20 mg PO DAILY 04/27/24 07/02/24 06/29/24 History
release
prochlorperazine maleate 10 mg 10 mg PO Q8H PRN Nausea 05/12/24 07/02/24 06/30/24 History
tablet
hydromorphone 2 mg tablet 2 mg PO Q6H PRN was never able to 07/02/24 07/03/24 Unknown History
(Dilaudid) fill rx
ondansetron HCl 4 mg tablet 4 mg PO Q8H PRN nausea 07/02/24 07/02/24 07/01/24 History
Active Medications
Generic Name Dose Route Start Last Admin
Trade Name Freq PRN Reason Stop Dose Admin
Enoxaparin Sodium 40 mg 07/02/24 18:00 07/02/24 17:04
Enoxaparin Sodium 40 Mg/0.4 Ml Syringe SC 07/30/24 17:59 40 mg
QPM CAROLE Administration
Heparin Sodium (Porcine) 500 unit 07/03/24 06:45 07/03/24 09:04
Heparin Flush Pf (100 Unit/Ml) 5 Ml Syringe IV 07/31/24 06:44 500 unit
PER PROTOCOL CAROLE Administration
Hydromorphone HCl 0.5 mg 07/01/24 21:57 07/03/24 23:20
Hydromorphone 0.5 Mg/0.5 Ml Syringe IV 07/15/24 21:56 0.5 mg
Q4HPRN PRN Administration
severe pain
Dextrose/Lactated Ringer's 500 mls @ 75 mls/hr 07/03/24 12:00 07/03/24 23:19
D5lr IV 500 mls
.Q6H40M CAROEL Administration
Ondansetron HCl 4 mg 07/01/24 21:57 07/03/24 23:20
Ondansetron 4 Mg/2 Ml Vial IV 07/29/24 21:56 4 mg
Q6HPRN PRN Administration
nausea and vomiting
Pantoprazole Sodium 40 mg 07/02/24 11:00 07/03/24 07:26
Pantoprazole Sodium 40 Mg/10 Ml Vial IV 07/30/24 10:59 40 mg
DAILY CAROLE Administration
Sodium Chloride 0 flush 07/01/24 22:00 07/03/24 07:26
Sodium Chloride 0.9% (Flush) Syringe IV 07/29/24 21:59 1 flush
PER PROTOCOL CAROLE Administration
Sodium Chloride 10 ml 07/02/24 12:00 07/03/24 07:25
Sodium Chloride 0.9% (Preservative Free) 10 Ml Vial IV 07/30/24 11:59 10 ml
DAILY CAROLE Administration
Review of Systems
-
All Other Systems: Reviewed and Negative
Physical Exam
-
Awake, alert, non-toxic
Labs
Lab Results
WBC 22.3 10^3/uL (4.8-10.8) H 07/03/24 06:15
RBC 3.10 10^6/uL (4.20-5.40) L 07/03/24 06:15
Hgb 9.9 g/dL (12.0-16.0) L 07/03/24 06:15
Hct 32.5 % (37.0-47.0) L 07/03/24 06:15
MCV 104.8 fL (81.0-99.0) H 07/03/24 06:15
MCH 31.9 pg (27.0-31.0) H 07/03/24 06:15
MCHC 30.5 g/dL (33.0-37.0) L 07/03/24 06:15
RDW 21.6 % (11.5-14.5) H 07/03/24 06:15
Plt Count 261 10^3/uL (130-400) 07/03/24 06:15
MPV 9.2 fL (7.4-10.4) 07/03/24 06:15
Abs Immat Gran (auto) 0.4 10^3/uL (0-0.05) H 07/03/24 06:15
Absolute Neuts (auto) 19.3 10^3/uL (1.4-6.5) H 07/03/24 06:15
Absolute Lymphs (auto) 1.2 10^3/uL (1.2-3.4) 07/03/24 06:15
Absolute Monos (auto) 0.9 10^3/uL (0.1-0.6) H 07/03/24 06:15
Absolute Eos (auto) 0.4 10^3/uL (0-0.7) 07/03/24 06:15
Absolute Basos (auto) 0.1 10^3/uL (0-0.2) 07/03/24 06:15
Immature Gran % 1.9 % (0-0.5) H 07/03/24 06:15
Neutrophils % 86.5 % (42.2-75.2) H 07/03/24 06:15
Lymphocytes % 5.2 % (20.5-51.1) L 07/03/24 06:15
Monocytes % 3.8 % (1.7-9.3) 07/03/24 06:15
Eosinophils % 2.0 % (0-6) 07/03/24 06:15
Basophils % 0.6 % (0-2) 07/03/24 06:15
Creatinine 0.4 mg/dL (0.6-1.0) L 07/03/24 06:15
Vital Signs
Vital Signs
Temp Pulse Resp BP Pulse Ox
98.3 F 88 16 149/68 97
07/03/24 16:10 07/03/24 16:10 07/03/24 16:10 07/03/24 16:10 07/03/24 16:10
[2024-07-04] MEDS: D5LR 500 IV ×2 (06:16→17:47)
--- NOTE | 2024-07-04 07:42 | W.PN.CRS1 ---
Today's Communication / Plan
-
as below
Assessment/Plan
-
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
hypothyroidism, GERD who presented with worsening abdominal pain associated with nausea and vomiting. CT scan shows large bowel obstruction with dilated proximal loops of small bowel associated with transverse colon cancer, cancer has significantly
decreased in size.
AFVSS
Labs pending
� Large bowel obstruction due to transverse colon cancer
�No bowel function; concern for impending complete obstruction
�Recommend diverting loop ileostomy this PM in order to prevent complications of complete obstruction and facilitate return to chemotherapy
-Lengthy discussion this AM regarding options and agreed to proceed with surgery
�Appreciate oncology
�Strict n.p.o., continue IVF
� Continue pain control with Dilaudid as needed
� Continue DVT PPx with Lovenox
� Encourage IS, OOB
� Appreciate hospitalist
Subjective Data
Subjective Data
Date of Service: July 04, 2024
No overnight events.
No nausea/vomiting. No flatus/BMs.
Pain stable.
Objective Data
-
Vital Signs
Temp Pulse Resp BP Pulse Ox
98.7 F 79 16 113/59 95
07/03/24 23:10 07/03/24 23:10 07/03/24 23:10 07/03/24 23:10 07/03/24 23:10
Intake & Output
07/03/24 07/04/24 07/05/24
06:59 06:59 06:59
Intake Total 480 / 480 1650 / 1650
Balance 480 / 480 1650 / 1650
Intake:
Oral fluids 480 / 480 0 / 0
IV fluids (Total) 1650 / 1650
Other:
Number of approximated SMALL 3
amounts of urine
Number of approximated MODERATE 5 1
amounts of urine
Number of approximated LARGE 2
amounts of urine
Physical Exam
-
General: No Acute Distress and AOx3
Abdomen: Soft, Distended (minimally to mildly), Tender (mildly tender ), No Guarding and No Rebound
Skin: Warm and Dry
[2024-07-04 07:50] VITALS: BP 117/77
[2024-07-04] MEDS: NSS (PRESERVATIVE FREE) 10 ML IV (08:46)
[2024-07-04] MEDS: PROTONIX IV 40 MG IV (08:46)
[2024-07-04 09:03] LABS: % Basophils 0.3 % (0-2); % Eosinophils 1.9 % (0-6); % Immature Granulocytes 1.5 % (0-0.5); % Lymphocytes 4.7 % (20.5-51.1); % Monocytes 3.9 % (1.7-9.3); % Neutrophils 87.7 % (42.2-75.2); Absolute Basophils 0.1 10^3/uL (0-0.2); Absolute Eosinophils 0.4 10^3/uL (0-0.7); Absolute Immature Granulocytes 0.3 10^3/uL (0-0.05); Absolute Monocytes 0.8 10^3/uL (0.1-0.6); Absolute Neutrophils 18.1 10^3/uL (1.4-6.5); Hematocrit 31.1 % (37.0-47.0); Hemoglobin 9.8 g/dL (12.0-16.0); Mean Corp Hgb Conc. 31.5 g/dL (33.0-37.0); Mean Corpuscular Volume 101.6 fL (81.0-99.0); Nucleated Red Blood Cells % 0 %; Platelet Count 239 10^3/uL (130-400); Red Blood Cell Count 3.06 10^6/uL (4.20-5.40); Red Cell Dist. Width 21.1 % (11.5-14.5); White Blood Cell Count 20.7 10^3/uL (4.8-10.8)
[2024-07-04 09:14] LABS: INR 1.32; PT 16.7 Sec (11.4-14.6)
[2024-07-04 09:15] LABS: APTT 28.6 Sec (23.4-35.0)
[2024-07-04 09:49] LABS: ALT (SGPT) 20 U/L (0-35); AST (SGOT) 27 U/L (14-36); Alkaline Phosphatase 156 U/L (38-126); Blood Urea Nitrogen 5 mg/dl (7-17); Calcium 7.4 mg/dl (8.4-10.2); Carbon Dioxide 28 mmol/L (22-30); Chloride 108 mmol/L (98-107); Estimated Creatinine Clearance 74 ml/min; Glucose 91 mg/dl (70-99); Magnesium 2.1 mg/dl (1.6-2.3); Sodium 140 mmol/L (135-145); Total Bilirubin 0.4 mg/dl (0.2-1.3); eGFR > 60.00
--- NOTE | 2024-07-04 11:15 | W.PN.HOSP.TC ---
Today's Communication/Plan
-
pending Sx
infectious w/u
Assessment / Plan
Assessment / Plan
69yo F with PMHx of colon CA diagnosed in 2023 on chemo, hypothyroidism, GERD came with 2 days of nausea, vomiting and found large and small bowel obstruction 2/2 malignancy of transverse colon. Planned for diverting ileostomy. ALso with persistent
leukocytosis over past few weeks as per patient without clear signs of infection
A/P:
#Developing SBO and LBO 2/2 colon CA
NPO
IVF
Colorectal Sx planning for diverting loop ileostomy
Oncology
pain mgmt
#Leukocytosis
check UA, chest XR and Bcx
Most likely 2/2 recent chemo
monitor
#minimally elevated procalcitonin
not informative with cancer
#Splenic cyst vs hemangioma
#L renal lesion, too small to characterize
follow up imaging advised in 6-12 mo with oncology
#Non-obstructing nephrolithiasis
monitor
#Hypothyroidism
TSH WNL
will hold off IV Synthroid since dose was minimal 25mcg - far from full physiologic replenishment dose
#fatty liver disease
low fat diet
#GERD
cont famotidine
DVT ppx SCDs
Full code
I have spent at least 37min reviewing chart, test results, communication with consultants and providing direct patient care
Anticipated Discharge: > 48 hours
Subjective/Interval History
-
Date of Service: July 04, 2024
Objective Data
-
Labs:
Laboratory Results
07/04/24
08:51
WBC 20.7 H
Hgb 9.8 L
Hct 31.1 L
Plt Count 239
PT 16.7 H
INR 1.32
APTT 28.6
Sodium 140
Potassium 4.0
Chloride 108 H
Carbon Dioxide 28
BUN 5 L
Creatinine 0.4 L
Glucose 91
Calcium 7.4 L
Total Bilirubin 0.4
AST 27
ALT 20
Alkaline Phosphatase 156 H
Vital Signs:
Vital Signs
Temp Pulse Resp BP Pulse Ox
97.8 F 62 16 117/77 95
07/04/24 07:50 07/04/24 07:50 07/04/24 07:50 07/04/24 07:50 07/04/24 07:50
I&O
07/03/24 07/04/24 07/05/24
06:59 06:59 06:59
Intake Total 480 / 480 1650 / 1650
Balance 480 / 480 1650 / 1650
Review of Systems
-
History Source: Patient
All other systems: Reviewed and negative
Physical Exam
-
General: No Apparent Distress
HEENT: Normocephalic
Cardiac: Regular Rhythm
GI: Soft, Nontender and Nondistended
Skin: Warm
Neuro: Awake, Alert, Oriented and AO x 3
--- NOTE | 2024-07-04 11:35 | W.PN.ONC ---
Today's Communication / Plan
-
diverting ostomy scheduled for this afternoon
resume chemo in 3-4 weeks, once recovered from surgery
will follow along peripherally
Impression
Impression
Locally advanced colon cancer undergoing neoadjuvant chemotherapy (with tumor shrinkage)
Small +/- large bowel obstruction
Hx breast cancer, currently EVERARDO
Scleroderma
Hx bariatric surgery
Fatty liver
Plan
Plan
Pt responding well to chemotherapy.
Agree with plan for diverting ostomy to allow her to continue chemotherapy. Goal is eventual resection with curative intent.
Counts adequate for surgery.
Will follow along with you.
Subjective/Objective
Subjective/Objective
eager to get her surgery done today, can't wait to eat again
Vital Signs:
Vital Signs
Temp Pulse Resp BP Pulse Ox
97.8 F 62 16 117/77 95
07/04/24 07:50 07/04/24 07:50 07/04/24 07:50 07/04/24 07:50 07/04/24 07:50
Lab Results:
Laboratory Data
WBC 20.7 10^3/uL (4.8-10.8) H 07/04/24 08:51
Hgb 9.8 g/dL (12.0-16.0) L 07/04/24 08:51
Plt Count 239 10^3/uL (130-400) 07/04/24 08:51
PT 16.7 Sec (11.4-14.6) H 07/04/24 08:51
INR 1.32 07/04/24 08:51
APTT 28.6 Sec (23.4-35.0) 07/04/24 08:51
eGFR > 60.00 07/04/24 08:51
--- NOTE | 2024-07-04 13:54 | CM ---
CM reviewed medical records. Plan for OR today. CM will follow for discharge planning needs.
PLAN: Pending clinical outcome.
--- NOTE | 2024-07-04 15:58 | W.IMMPOSTOP ---
Addendum entered and electronically signed by Mehul Girard MD 07/04/24 16:27:
updated spouse Dot
Original Note:
Surgical Immed Post Op Note
-
Primary Surgeon: Mehul Girard MD
Assisting Surgeon: SANDRA De La Torre
Pre-op Diagnosis: obstructing transverse colon cancer
Post-op Diagnosis: obstructing transverse colon cancer
Procedure Performed: laparoscopic diverting loop ileostomy
Anesthesia Type: general
Specimen / Cultures: none
Estimated Blood Loss: 15mL
Complications: none
Operative Findings: large transverse colon mass in the mid to proximal transverse colon with adherent omentum; mass is not mobile; dilated cecum with mildly dilated proximal small bowel; made ostomy aperture in the RLQ and brought up loop about
15-20cm from the ileocecal valve; closed skin; matured loop ileostomy with function limb brooked; placed an 18Fr red curer foam rubber the defunctional limb to decompress cecum
--- NOTE | 2024-07-04 16:03 | OR.RPT ---
Operative Report
Operative Report
DATE OF OPERATION: 07/04/24
SURGEON: Mehul Girard MD
PREOPERATIVE DIAGNOSIS: Obstructing T4b transverse colon cancer
POSTOPERATIVE DIAGNOSIS: Obstructing T4b transverse colon cancer
OPERATION: Laparoscopic creation of diverting loop ileostomy, laparoscopic TAP block
ASSISTANTS:
1. SANDRA De La Torre
ANESTHESIA: General
ESTIMATED BLOOD LOSS: 15 mL
FINDINGS:
1. Transverse colon cancer identified in the mid to proximal transverse colon with adherent omentum; mass was large and immobile
2. Created diverting loop ileostomy 20 cm proximal to the ileocecal valve using the RLQ ostomy marking site; placed 18 Ukrainian red rubber and plastics worker the defunctional limb to assist with drainage of the cecum
SPECIMENS:
1. None
DRAINS: None
COMPLICATIONS: No immediate complications.
INDICATIONS: The patient is a 69-year-old female who was diagnosed with a large transverse colon cancer with concern of invasion into the pancreas. After a tumor board review, she was recommended to undergo neoadjuvant chemotherapy. She has been
on FOLFIRI for the last 2 months, last dose was June 22. She presented to the [place] ED with worsening nausea and vomiting as well as abdominal pain. A CT scan showed a large bowel obstruction with the transverse colon cancer as the
transition point. The colon cancer had significantly decreased in size, now measuring roughly 5.8 x 4.5 x 4.0 cm. It previously measured 8.6 x 6.5 x 7.2 cm. Although her nausea had improved, she continued having obstipation and bloating.
Therefore, I recommended diverting ostomy with the hope to return her to her chemotherapy regimen as soon as possible. The operation was discussed with the patient in detail, including the risks, benefits and alternatives. Risks described included,
but not limited to, bleeding, infection, damage to nearby structures (i.e., bowel, bladder, epigastric vessels), more extensive resection than anticipated, conversion to open, need for end ileostomy with mucous fistula, risks associated with ostomy
(i.e.�skin irritation, prolapse, retraction/stenosis, hernia), postoperative ileus and anesthetic risks. The patient understood and agreed to proceed. The consent was signed and placed in the chart.
PROCEDURE IN DETAIL: The patient was taken to the operating room and placed on the operating table in supine position. Sequential compression devices were placed bilaterally. General anesthesia was induced and the patient was intubated without
complication. The patient was secured to the bed with 1 seatbelt across the mid thighs, the right arm secured to the armboard and the left arm was tucked. Mandel catheter was placed with sterile technique. Anesthesia placed an orogastric tube.
Antibiotics were given pre-incision. The abdomen was shaved, prepped and draped in the usual sterile fashion. A time-out was performed verifying the correct patient, procedure, operative site, positioning, and special equipment.
A Veress needle was used to gain access to the abdomen. An 11 blade scalpel was used to make a stab incision at Rowell's point. The Veress needle was introduced and connected to insufflation. The opening pressure was less than 8 mmHg. The
patient tolerated insufflation well up to a pressure of 15 mmHg. A 5 mm incision was made in the skin supraumbilically. A 5�30 laparoscopic scope was used with Optiview technique to gain entry into the abdomen. The abdomen was inspected. No
injury was noted from initial abdominal entry or from the Veress needle. There was a large swelling in the mid to proximal transverse colon, most consistent with her known T4b colon cancer. The cecum was mildly dilated without any evidence of
ischemia. The small bowel loops were only mildly dilated and not obscuring laparoscopic visualization. Therefore, I placed two more 5 mm ports under direct visualization in the left lower quadrant and the suprapubic region, taking care to avoid
any injury to the epigastric vessels and the bladder respectively. The patient was placed in Trendelenburg position with the right side up.
Two atraumatic graspers were used to sweep the small bowel to the left upper quadrant and identify the cecum, terminal ileum and appendix, all of which appeared normal. I palpated the mass with the atraumatic graspers. It appeared hard and the
omentum was adherent to the mass. Therefore, it was difficult to discern what type of invasion of the mass there was underneath the omentum. Additionally, the mass was immobile and I was unable to retract the mass cephalad. In order to avoid any
avulsion of nearby important structures, the mass was left alone. I assessed the terminal ileum and there were no concerning adhesions to the first 30 cm. Therefore, I elected to proceed with diverting loop ileostomy. I made a circular skin
incision at the right lower quadrant ostomy marking site. I amputated the skin through the subcutaneous tissue. I took this down to the level of the fascia with electrocautery. I created a cruciate incision in the anterior and posterior fascia,
splitting the muscle using a long Karis clamp. Hemostasis was achieved in each layer of the abdomen. I placed a mini Ezekiel wound protector and used a Karis clamp to make it air tight. I reinsufflated the abdomen. I used atraumatic graspers to
measure out about 15 to 20 cm proximal to the ileocecal valve. I grasped this point on the small bowel and passed it through the ostomy aperture using a Bandana grasper. After the bowel was pulled through, I reinsufflated the abdomen and confirmed
the orientation. The defunctional limb was oriented cephalad and the functional limb was oriented caudad. I created a hole in the mesentery at the mesenteric border using electrocautery. I passed a 16 Ukrainian red rubber catheter through the hole
and secured it to itself with 2-0 silk stitches. I removed the ports under direct visualization and no bleeding was noted. The abdomen was allowed to collapse. The skin incisions of the port sites were closed with 4 Monocryl in subcuticular
fashion. The incisions and area of the ostomy were injected with a total of 30 mL of 0.25% Marcaine with epinephrine and 0.3 mg of dexamethasone. The port incisions were covered with Dermabond. The incisions were allowed to dry and then were
covered with blue towels. The ostomy was matured with 3-0 Vicryl stitches, brooking the functional limb. An 18 Ukrainian red rubber catheter was directed down the defunctional limb and secured to the skin with 2-0 nylon. The functional limb was
checked with my pinky finger and was patent through the layers of the abdominal wall. An ostomy appliance was cut to size and placed over the ostomy.
At this point, the procedure was complete. The patient was awoken and extubated without complication. All needle, sponge and instrument counts were reported as correct. The patient tolerated the procedure well and was transferred to the recovery
room in stable condition with Mandel in place.
DICTATED BY: Mehul Girard MD
[2024-07-04 16:07] VITALS: BP 116/62; BP 117/77
[2024-07-04 16:15] VITALS: BP 124/68
[2024-07-04] MEDS: DILAUDID 0.25 MG IV ×2 (16:25→16:36)
[2024-07-04 17:07] VITALS: BP_SYST 75
--- NOTE | 2024-07-04 17:41 | PTCARENOTE ---
received from PACU. patient is drowsy, but arousable. on 2 L NC to maintain sats. abdomen assessed. 4 lap sites with surgical adhesive C/D/I CAMILLE, R ileostomy with 2 drains for decompression. ileostomy with visible liquid brown stool. patient is NPO.
IVF restarted via LSQ port. scheduled toradol administered for pain.
[2024-07-04] MEDS: TORADOL 15 MG IV ×2 (17:45→23:38)
[2024-07-04 19:30] VITALS: BP 114/59
[2024-07-04] MEDS: TYLENOL PO (23:38)
[2024-07-04 23:48] VITALS: BP 109/63
[2024-07-05] MEDS: DILAUDID 0.25 MG IV ×2 (01:47→15:38)
[2024-07-05 01:57] LABS: Urine Albumin 1+ (Neg - Trace); Urine Bilirubin Negative (Negative); Urine Character Clear (Clear); Urine Color Yellow; Urine Glucose Negative (Negative); Urine Ketone 3+ (Negative); Urine Leukocyte Negative (Negative); Urine Nitrite Negative (Negative); Urine Occult Blood 3+ (Negative); Urine Specific Gravity 1.015 (<1.030); Urine Urobilinogen Negative (Neg - 1+)
[2024-07-05 02:14] LABS: Urine Amorphous Seen; Urine Mucus Moderate
[2024-07-05 02:15] LABS: Urine Squamous Cell 21-25 /LPF (Few)
[2024-07-05 02:17] LABS: Urine Bacteria Few (Negative); Urine Red Blood Cell 40-50 /HPF (0-2)
[2024-07-05 03:10] VITALS: BP 115/58
[2024-07-05 05:45] LABS: % Basophils 0.2 % (0-2); % Immature Granulocytes 2.6 % (0-0.5); % Lymphocytes 2.6 % (20.5-51.1); % Monocytes 2.9 % (1.7-9.3); % Neutrophils 91.7 % (42.2-75.2); Absolute Basophils 0.1 10^3/uL (0-0.2); Absolute Immature Granulocytes 1.2 10^3/uL (0-0.05); Absolute Lymphocytes 1.2 10^3/uL (1.2-3.4); Absolute Monocytes 1.3 10^3/uL (0.1-0.6); Absolute Neutrophils 40.9 10^3/uL (1.4-6.5); Hematocrit 30.7 % (37.0-47.0); Hemoglobin 9.7 g/dL (12.0-16.0); Mean Corp Hgb Conc. 31.6 g/dL (33.0-37.0); Mean Corpuscular Hgb 32.2 pg (27.0-31.0); Mean Platelet Volume 9.5 fL (7.4-10.4); Nucleated Red Blood Cells % 0 %; Platelet Count 231 10^3/uL (130-400); Red Blood Cell Count 3.01 10^6/uL (4.20-5.40); Red Cell Dist. Width 21.2 % (11.5-14.5); White Blood Cell Count 44.6 10^3/uL (4.8-10.8)
[2024-07-05] MEDS: TORADOL 15 MG IV ×4 (05:59→23:40)
[2024-07-05] MEDS: TYLENOL PO (06:04)
[2024-07-05 06:07] LABS: ALT (SGPT) 19 U/L (0-35); AST (SGOT) 25 U/L (14-36); Albumin 3.1 g/dl (3.5-5.0); Alkaline Phosphatase 167 U/L (38-126); Blood Urea Nitrogen 5 mg/dl (7-17); Calcium 6.7 mg/dl (8.4-10.2); Carbon Dioxide 23 mmol/L (22-30); Chloride 106 mmol/L (98-107); Estimated Creatinine Clearance 74 ml/min; Glucose 103 mg/dl (70-99); Magnesium 2.1 mg/dl (1.6-2.3); Sodium 138 mmol/L (135-145); Total Bilirubin 0.5 mg/dl (0.2-1.3); Total Protein 5.2 g/dl (6.3-8.2); eGFR > 60.00
--- NOTE | 2024-07-05 06:18 | PTCARENOTE ---
Critical lab values reviewed in person with HP at this time, WBC and CA.
[2024-07-05 07:12] VITALS: BP 109/64
[2024-07-05 07:20] LABS: Uric Acid 6.1 mg/dl (2.5-6.2)
[2024-07-05] MEDS: PROTONIX IV 40 MG IV (07:36)
[2024-07-05] MEDS: NSS (PRESERVATIVE FREE) 10 ML IV (07:37)
[2024-07-05] MEDS: CALCIUM GLUCONATE 100 IV (07:38)
--- NOTE | 2024-07-05 10:22 | W.PN.HOSP.TC ---
Today's Communication/Plan
-
repleted Ca
follow CBC and BMP
monitor off Abx
start IVF
Assessment / Plan
Assessment / Plan
69yo F with PMHx of colon CA diagnosed in 2023 on chemo, hypothyroidism, GERD came with 2 days of nausea, vomiting and found large and small bowel obstruction 2/2 malignancy of transverse colon. Planned for diverting ileostomy. ALso with persistent
leukocytosis over past few weeks as per patient without clear signs of infection
A/P:
#Developing SBO and LBO 2/2 colon CA
NPO
IVF
Colorectal Sx: s/p diverting loop ileostomy on 07/04/24. Discussed periOP findings - no purulence seen, no concern for infection
pain mgmt
#Leukocytosis with leukemoid reaction
UA, chest XR and Bcx NTD
Most likely 2/2 recent chemo and reactive
Uric acid WNL
monitor CBC
Oncology to follow
#hypocalcemia
repleted
#minimally elevated procalcitonin
not informative with cancer
#Splenic cyst vs hemangioma
#L renal lesion, too small to characterize
follow up imaging advised in 6-12 mo with oncology
#Non-obstructing nephrolithiasis
monitor
#Hypothyroidism
TSH WNL
will hold off IV Synthroid since dose was minimal 25mcg - far from full physiologic replenishment dose
#fatty liver disease
low fat diet
#GERD
cont famotidine
DVT ppx SCDs
Full code
I have spent at least 57min reviewing chart, test results, communication with consultants and providing direct patient care
Anticipated Discharge: > 48 hours
Subjective/Interval History
-
Date of Service: July 05, 2024
Objective Data
-
Labs:
Laboratory Results
07/05/24 07/05/24 07/05/24
05:16 05:17 13:00
WBC 44.6 H* Pending
Hgb 9.7 L Pending
Hct 30.7 L Pending
Plt Count 231 Pending
Sodium 138 Pending
Potassium 4.0 Pending
Chloride 106 Pending
Carbon Dioxide 23 Pending
BUN 5 L Pending
Creatinine 0.4 L Pending
Glucose 103 H Pending
Calcium 6.7 L* Pending
Total Bilirubin 0.5
AST 25
ALT 19
Alkaline Phosphatase 167 H
Vital Signs:
Vital Signs
Temp Pulse Resp BP Pulse Ox
98.3 F 81 15 109/64 97
07/05/24 07:12 07/05/24 07:12 07/05/24 07:12 07/05/24 07:12 07/05/24 07:12
I&O
07/04/24 07/05/24 07/06/24
06:59 06:59 06:59
Intake Total 1650 / 1650 580 / 580 700 / 700
Output Total 1925 / 1925 100 / 100
Balance 1650 / 1650 -1345 / -1345 600 / 600
Review of Systems
-
History Source: Patient
All other systems: Reviewed and negative
Physical Exam
-
General: No Apparent Distress and Comfortable
HEENT: Normocephalic
Respiratory: Clear to Auscultation
Cardiac: Regular Rhythm
GI: Soft, Nontender, Nondistended and Ostomy (with stool)
Genito-urinary: No Costovertebral Tender
Musculoskeletal: No Clubbing, No Cyanosis and No Edema
Neuro: Awake, Alert, Oriented and AO x 3
Psych: Calm
--- NOTE | 2024-07-05 10:46 | WOUNDNOTE ---
[facility] RN note: Patient's stoma pink and budded with red rubber stoma bridge intact. Sacrum blanchable red. Patient has a bony sacrum. Protective sacral shaped silicone border foam applied. Patient is on a [employer] max air bed. She can turn self in
bed. Ileostomy appliance intact. Surgery was yesterday. Ostomy supplies ([place] wafer # [id number], [employer] seals and [employer] pouch # [id number]) and ileostomy teaching folder given. Patient gave permission to order a [place] ostomy secure starter kit.
Patient's Dot present. Instructed patient and Dot how to cut wafer, snap on pouch and empty pouch.
--- NOTE | 2024-07-05 10:55 | CM ---
Chart reviewed; Met with pt
Pt to OR yesterday - new ostomy
Wound care to follow
Discussed VN for teaching/ostomy care - pt receptive - no preference
Referral sent to [facility] Liaison via TT for HH needs
Plan - anticipate home with [facility] when medically ready
[2024-07-05 11:10] VITALS: BP 121/75
--- NOTE | 2024-07-05 11:23 | W.PN.CRS1 ---
Today's Communication / Plan
-
DC Mandel
N.p.o. with sips
Out of bed
Restart Lovenox
Assessment/Plan
-
POD#1 laparoscopic diverting loop ileostomy
WBC 44.6 (20.7), Hgb 9.7 (9.8)
Liquid stool: 950 mL, drain output: 75 mL
-Remain n.p.o. with sips for today. Continue IV fluids.
-Out of bed as tolerated
-Discontinue Mandel
-Okay to remove IJ from our standpoint
-Will remove red rubber supporting ileostomy in about 5 days. Red rubber within stoma to be removed prn.
-Leukocytosis discussed with hospitalist. No evidence of intra-abdominal infection noted during surgery. Repeat CBC this afternoon.
-Tylenol and Toradol standing, Dilaudid as needed
-Teds and SCDs for DVT prophylaxis. Lovenox restarted.
-Wound RN for stoma teaching.
Subjective Data
Procedure
07/04/2024- laparoscopic diverting loop ileostomy
Subjective Data
Date of Service: July 05, 2024
Patient states she is feeling well. She has no complaints. Her pain is controlled.
Objective Data
-
Vital Signs
Temp Pulse Resp BP Pulse Ox
98.3 F 81 15 109/64 97
07/05/24 07:12 07/05/24 07:12 07/05/24 07:12 07/05/24 07:12 07/05/24 07:12
Intake & Output
07/04/24 07/05/24 07/06/24
06:59 06:59 06:59
Intake Total 1650 / 1650 580 / 580 700 / 700
Output Total 1925 / 1925 100 / 100
Balance 1650 / 1650 -1345 / -1345 600 / 600
Intake:
Oral fluids 0 / 0 480 / 480 600 / 600
IV fluids (Total) 1650 / 1650 100 / 100
normosol 100 / 100
IV piggybacks 100 / 100
Output:
Liquid stool amount 850 / 850 100 / 100
Ileostomy 850 / 850 100 / 100
Drain Output (Total) 75 / 75
Right Abdomen 75 / 75
Urine, Mandel 1000 / 1000
Other:
Number of approximated MODERATE 1
amounts of urine
Number of approximated LARGE 2
amounts of urine
Physical Exam
-
General: No Acute Distress and AOx3
Abdomen: Soft, Non Distended, Non Tender and Other (Ileostomy in place with red rubber, warm and pink, liquid stool in bag)
Skin: Warm and Dry
[2024-07-05] MEDS: D5LR 500 IV ×2 (12:16→19:20)
[2024-07-05] MEDS: TYLENOL 1000 MG PO ×3 (12:53→23:40)
--- NOTE | 2024-07-05 14:22 | VNURNOTE ---
[facility] [address] Reporter met with patient to discuss [facility] nurse/therapy, visits, schedule and homebound status. Patient is agreeable and understands that visits at home will be 2-3 x per week to assess and teach medical management.
[facility] contact information provided. Patient is aware that [facility] will contact them for start of care after discharge from .
[facility] referral completed in [facility].
[2024-07-05 14:28] LABS: Hematocrit 32.6 % (37.0-47.0); Hemoglobin 10.3 g/dL (12.0-16.0); Mean Corp Hgb Conc. 31.6 g/dL (33.0-37.0); Mean Corpuscular Hgb 32.6 pg (27.0-31.0); Mean Corpuscular Volume 103.2 fL (81.0-99.0); Mean Platelet Volume 9.3 fL (7.4-10.4); Platelet Count 258 10^3/uL (130-400); Red Blood Cell Count 3.16 10^6/uL (4.20-5.40); Red Cell Dist. Width 21.3 % (11.5-14.5)
[2024-07-05 14:29] LABS: Absolute Neutrophils -Man Diff 39.7 10^3/uL (1.4-6.5); Band Neutrophils 10 % (0-3); Eosinophils 1 % (0-6); Lymphocytes 1 % (20-51); Monocytes 1 % (2-9); Platelets Checked Yes; Segmented Neutrophils 87 % (42-75)
[2024-07-05 14:30] LABS: Normal RBC Morphology Yes; Total Cells Counted 100
[2024-07-05 15:05] VITALS: BP 124/78
[2024-07-05 15:17] LABS: Blood Urea Nitrogen 6 mg/dl (7-17); Calcium 7.7 mg/dl (8.4-10.2); Carbon Dioxide 25 mmol/L (22-30); Chloride 103 mmol/L (98-107); Estimated Creatinine Clearance 74 ml/min; Glucose 76 mg/dl (70-99); Sodium 139 mmol/L (135-145); eGFR > 60.00
--- NOTE | 2024-07-05 16:38 | WOUNDNOTE ---
[facility] RN note: Faxed a patient signed [employer] ostomy secure starter kit fax request to [facility].
[2024-07-05 23:26] VITALS: BP 105/58
[2024-07-06] MEDS: D5LR 1000 IV ×3 (01:45→23:13)
[2024-07-06 05:01] LABS: Hematocrit 28.5 % (37.0-47.0); Mean Corp Hgb Conc. 31.6 g/dL (33.0-37.0); Mean Corpuscular Hgb 31.8 pg (27.0-31.0); Mean Corpuscular Volume 100.7 fL (81.0-99.0); Mean Platelet Volume 9.4 fL (7.4-10.4); Platelet Count 214 10^3/uL (130-400); Red Blood Cell Count 2.83 10^6/uL (4.20-5.40); Red Cell Dist. Width 21.1 % (11.5-14.5); White Blood Cell Count 26.4 10^3/uL (4.8-10.8)
[2024-07-06] MEDS: TYLENOL 1000 MG PO ×4 (05:11→23:17)
[2024-07-06] MEDS: TORADOL 15 MG IV ×3 (05:11→17:43)
[2024-07-06 05:22] LABS: ALT (SGPT) 14 U/L (0-35); AST (SGOT) 19 U/L (14-36); Albumin 2.6 g/dl (3.5-5.0); Alkaline Phosphatase 131 U/L (38-126); Blood Urea Nitrogen 8 mg/dl (7-17); Carbon Dioxide 25 mmol/L (22-30); Chloride 113 mmol/L (98-107); Estimated Creatinine Clearance 74 ml/min; Glucose 96 mg/dl (70-99); Potassium 3.7 mmol/L (3.5-5.1); Sodium 143 mmol/L (135-145); Total Bilirubin 0.3 mg/dl (0.2-1.3); Total Protein 4.7 g/dl (6.3-8.2); eGFR > 60.00
[2024-07-06 05:23] LABS: Calcium 7.1 mg/dl (8.4-10.2)
[2024-07-06 06:00] VITALS: BMI 21.8
--- NOTE | 2024-07-06 06:09 | VATNOTE ---
PT REQUESTING A DYE STUDY TO BE DONE IN IR TO DETERMINE IF A FIBRIN SHEATH IS THE PROBLEM RELATED TO ON ON-GOING ISSUES WITH BLOOD WITHDRAWALS FROM L SUBQ PORT. PT STATED SHE HAD REQUESTED THE SAME ON HER PREVIOUS ADMISSION AND THERE HAS BEEN NO
FOLLOW UP. ENCOURAGED PT TO SPEAK DIRECTLY WITH HER PROVIDER TODAY AND I ALSO ASKED THE PCN TO ASK DAYSHIFT TO ASSIST PT IN FACILITATION OF THIS REQUEST.
[2024-07-06 07:10] VITALS: BP 112/61
[2024-07-06 08:05] LABS: % Basophils 0.3 % (0-2); % Eosinophils 2.1 % (0-6); % Immature Granulocytes 1.1 % (0-0.5); % Lymphocytes 3.1 % (20.5-51.1); % Monocytes 4.4 % (1.7-9.3); Absolute Basophils 0.1 10^3/uL (0-0.2); Absolute Eosinophils 0.6 10^3/uL (0-0.7); Absolute Immature Granulocytes 0.3 10^3/uL (0-0.05); Absolute Lymphocytes 0.8 10^3/uL (1.2-3.4); Absolute Monocytes 1.2 10^3/uL (0.1-0.6); Absolute Neutrophils 23.4 10^3/uL (1.4-6.5); Nucleated Red Blood Cells % 0 %
[2024-07-06] MEDS: PROTONIX IV 40 MG IV (08:20)
[2024-07-06] MEDS: NSS (PRESERVATIVE FREE) 10 ML IV (08:20)
--- NOTE | 2024-07-06 09:16 | W.PN.ONC2 ---
Today's Communication / Plan
-
.
Impression
Impression
Locally advanced colon cancer undergoing neoadjuvant chemotherapy (with tumor shrinkage)
Small +/- large bowel obstruction, s/p 07/04/2024- laparoscopic diverting loop ileostomy
Hx breast cancer, currently EVERARDO
Scleroderma
Hx bariatric surgery
Fatty liver
leukocytosis improving
anemia
Plan
Plan
Pt responding well to chemotherapy.
Goal is eventual resection with curative intent.
check iron studies, B12, folate
Will follow along with you.
Subjective/Objective
Subjective
Vital Signs:
Vital Signs
Temp Pulse Resp BP Pulse Ox
97.8 F 71 15 112/61 96
07/06/24 07:10 07/06/24 07:10 07/06/24 07:10 07/06/24 07:10 07/06/24 07:10
Lab Results:
Laboratory Data
WBC 26.4 10^3/uL (4.8-10.8) H 07/06/24 04:25
Hgb 9.0 g/dL (12.0-16.0) L 07/06/24 04:25
Plt Count 214 10^3/uL (130-400) 07/06/24 04:25
PT 16.7 Sec (11.4-14.6) H 07/04/24 08:51
INR 1.32 07/04/24 08:51
APTT 28.6 Sec (23.4-35.0) 07/04/24 08:51
eGFR > 60.00 07/06/24 04:25
--- NOTE | 2024-07-06 09:18 | W.PN.CRS1 ---
Today's Communication / Plan
-
as below
Assessment/Plan
-
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
hypothyroidism, GERD who presented with worsening abdominal pain associated with nausea and vomiting. CT scan shows large bowel obstruction with dilated proximal loops of small bowel associated with transverse colon cancer, cancer has significantly
decreased in size.
POD 2 lap DLI
AFVSS
WBC 26.4 from 44.6, Hb 9.0 from 10.3, CR 0.4
� Advance to clears
�Continue pain control with Tylenol, Toradol, Dilaudid as needed; will add tramadol PRN
� Continue DVT PPx with Lovenox
� Encourage IS, OOB
�Strict intake/output, at elevated risk for high ostomy output due to anatomy
-Appreciate WOCN team
�Appreciate oncology
-Will order contrast study of port, per IV team request
� Appreciate hospitalist
Subjective Data
Procedure
07/04/2024- laparoscopic diverting loop ileostomy
Subjective Data
Date of Service: July 06, 2024
No overnight events.
Pain controlled.
Denies nausea/vomiting. Tolerating sips.
+Ostomy function +voiding
Pt is OOB.
Objective Data
-
Vital Signs
Temp Pulse Resp BP Pulse Ox
97.8 F 71 15 112/61 96
07/06/24 07:10 07/06/24 07:10 07/06/24 07:10 07/06/24 07:10 07/06/24 07:10
Intake & Output
07/05/24 07/06/24 07/07/24
06:59 06:59 06:59
Intake Total 580 / 580 2320 / 2320
Output Total 1925 / 1925 1130 / 1130
Balance -1345 / -1345 1190 / 1190
Intake:
Oral fluids 480 / 480 1320 / 1320
IV fluids (Total) 100 / 100 900 / 900
normosol 100 / 100
IV piggybacks 100 / 100
Output:
Liquid stool amount 850 / 850 610 / 610
Ileostomy 850 / 850 610 / 610
Drain Output (Total) 75 / 75
Right Abdomen 75 / 75
Urine, Mandel 1000 / 1000 420 / 420
Urine, Voided 100 / 100
Other:
Number of approximated MODERATE 3
amounts of urine
Lab Results
07/06/24 04:25
07/06/24 04:25
Physical Exam
-
General: No Acute Distress and AOx3
HEENT: Grossly Normal
Abdomen: Soft, Non Distended, Tender (Appropriately tender near incisions), No Guarding, No Rebound and Other (Ostomy pink, edematous, productive of succus, ostomy bridge in place)
Skin: Warm and Dry
Wound: No Signs of Infection, Dressing in Place (With Dermabond) and No Skin Erythema
--- NOTE | 2024-07-06 09:47 | W.PN.HOSP.TC ---
Addendum entered and electronically signed by Vincent Manzo MD 07/06/24 09:51:
#Elevated alk.phos
most likely 2/2 CA as pt s/p cholecystectomy
Original Note:
Today's Communication/Plan
-
Advance diet when appropriate by surgery
Increase IVF rate
Leukocytosis improving off Abx - cont to follow
Assessment / Plan
Assessment / Plan
69yo F with PMHx of colon CA diagnosed in 2023 on chemo, hypothyroidism, GERD came with 2 days of nausea, vomiting and found large and small bowel obstruction 2/2 malignancy of transverse colon. Had diverting ileostomy. ALso with persistent
leukocytosis over past few weeks as per patient without clear signs of infection. Due to colostomy location - expected to have high volume output stoma - hydration advised
A/P:
#Developing SBO and LBO 2/2 colon CA
NPO
IVF
Colorectal Sx: s/p diverting loop ileostomy on 07/04/24. Discussed periOP findings - no purulence seen, no concern for infection
pain mgmt
#Leukocytosis with leukemoid reaction
Improving
UA, chest XR and Bcx NTD
Most likely 2/2 recent chemo and reactive
Uric acid WNL
monitor CBC
Oncology to follow
#hypocalcemia
repleted
#minimally elevated procalcitonin
not informative with cancer
#Splenic cyst vs hemangioma
#L renal lesion, too small to characterize
follow up imaging advised in 6-12 mo with oncology
#Non-obstructing nephrolithiasis
monitor
#Hypothyroidism
TSH WNL
will hold off IV Synthroid since dose was minimal 25mcg - far from full physiologic replenishment dose
#fatty liver disease
low fat diet
#GERD
cont famotidine
DVT ppx SCDs
Full code
I have spent at least 37min reviewing chart, test results, communication with consultants and providing direct patient care
Anticipated Discharge: > 48 hours
Subjective/Interval History
-
Date of Service: July 06, 2024
Objective Data
-
Labs:
Laboratory Results
07/06/24
04:25
WBC 26.4 H
Hgb 9.0 L
Hct 28.5 L
Plt Count 214
Sodium 143
Potassium 3.7
Chloride 113 H
Carbon Dioxide 25
BUN 8
Creatinine 0.4 L
Glucose 96
Calcium 7.1 L
Total Bilirubin 0.3
AST 19
ALT 14
Alkaline Phosphatase 131 H
Vital Signs:
Vital Signs
Temp Pulse Resp BP Pulse Ox
97.8 F 71 15 112/61 96
07/06/24 07:10 07/06/24 07:10 07/06/24 07:10 07/06/24 07:10 07/06/24 07:10
I&O
07/05/24 07/06/24 07/07/24
06:59 06:59 06:59
Intake Total 580 / 580 2320 / 2320
Output Total 1925 / 1925 1130 / 1130
Balance -1345 / -1345 1190 / 1190
Review of Systems
-
History Source: Patient
All other systems: Reviewed and negative
Physical Exam
-
General: Comfortable
HEENT: Normocephalic
Cardiac: Regular Rhythm
GI: Soft, Nontender, Nondistended and Ostomy
Musculoskeletal: No Clubbing, No Cyanosis and No Edema
Skin: Warm
Neuro: Awake, Alert, Oriented and AO x 3
Psych: Calm
[2024-07-06 11:08] VITALS: BP 114/71
[2024-07-06 11:45] LABS: Iron < 20 ug/dl (37-170); Total Iron Binding Capacity 225 ug/dl (265-497)
[2024-07-06 13:18] LABS: Vitamin B12 > 1000 pg/ml (239-931)
[2024-07-06 15:03] VITALS: BP 119/63
[2024-07-06] MEDS: LOVENOX 40 MG SC (17:43)
[2024-07-06 23:10] VITALS: BP 109/66
[2024-07-06] MEDS: ULTRAM 25 MG PO (23:11)
[2024-07-07] MEDS: TYLENOL PO (05:42)
[2024-07-07] MEDS: TYLENOL 1000 MG PO ×3 (05:58→17:54)
[2024-07-07 06:06] LABS: % Basophils 0.5 % (0-2); % Eosinophils 3.3 % (0-6); % Immature Granulocytes 1.1 % (0-0.5); % Lymphocytes 4.2 % (20.5-51.1); % Monocytes 4.1 % (1.7-9.3); % Neutrophils 86.8 % (42.2-75.2); Absolute Basophils 0.1 10^3/uL (0-0.2); Absolute Eosinophils 0.8 10^3/uL (0-0.7); Absolute Immature Granulocytes 0.3 10^3/uL (0-0.05); Absolute Neutrophils 20.3 10^3/uL (1.4-6.5); Hematocrit 29.9 % (37.0-47.0); Hemoglobin 9.3 g/dL (12.0-16.0); Mean Corp Hgb Conc. 31.1 g/dL (33.0-37.0); Mean Corpuscular Volume 102.7 fL (81.0-99.0); Mean Platelet Volume 9.5 fL (7.4-10.4); Nucleated Red Blood Cells % 0 %; Platelet Count 240 10^3/uL (130-400); Red Blood Cell Count 2.91 10^6/uL (4.20-5.40); Red Cell Dist. Width 20.8 % (11.5-14.5); White Blood Cell Count 23.4 10^3/uL (4.8-10.8)
[2024-07-07 06:26] LABS: ALT (SGPT) 12 U/L (0-35); AST (SGOT) 18 U/L (14-36); Albumin 2.5 g/dl (3.5-5.0); Alkaline Phosphatase 123 U/L (38-126); Blood Urea Nitrogen 4 mg/dl (7-17); Calcium 7.2 mg/dl (8.4-10.2); Carbon Dioxide 29 mmol/L (22-30); Chloride 111 mmol/L (98-107); Estimated Creatinine Clearance 74 ml/min; Glucose 93 mg/dl (70-99); Magnesium 2.1 mg/dl (1.6-2.3); Phosphorus 2.1 mg/dl (2.5-4.5); Potassium 3.7 mmol/L (3.5-5.1); Sodium 142 mmol/L (135-145); Total Bilirubin 0.2 mg/dl (0.2-1.3); Total Protein 4.5 g/dl (6.3-8.2); eGFR > 60.00
[2024-07-07 07:04] VITALS: BMI 22.0
[2024-07-07 07:25] VITALS: BP 120/75
[2024-07-07] MEDS: NSS (PRESERVATIVE FREE) 10 ML IV (08:00)
[2024-07-07] MEDS: PROTONIX IV 40 MG IV (08:00)
--- NOTE | 2024-07-07 10:40 | W.PN.HOSP.TC ---
Today's Communication/Plan
-
replete Phosphorus
follow labs
Assessment / Plan
Assessment / Plan
69yo F with PMHx of colon CA diagnosed in 2023 on chemo, hypothyroidism, GERD came with 2 days of nausea, vomiting and found large and small bowel obstruction 2/2 malignancy of transverse colon. Had diverting ileostomy. ALso with persistent
leukocytosis over past few weeks as per patient without clear signs of infection. Due to colostomy location - expected to have high volume output stoma - hydration advised
A/P:
#Developing SBO and LBO 2/2 colon CA
NPO
IVF
Colorectal Sx: s/p diverting loop ileostomy on 07/04/24. Discussed periOP findings - no purulence seen, no concern for infection
pain mgmt
#Leukocytosis with leukemoid reaction
Improving
UA, chest XR and Bcx NTD
Most likely 2/2 recent chemo and reactive
Uric acid WNL
monitor CBC
Oncology to follow
#hypocalcemia
repleted
#minimally elevated procalcitonin
not informative with cancer
#Splenic cyst vs hemangioma
#L renal lesion, too small to characterize
follow up imaging advised in 6-12 mo with oncology
#Non-obstructing nephrolithiasis
monitor
#Hypothyroidism
TSH WNL
will hold off IV Synthroid since dose was minimal 25mcg - far from full physiologic replenishment dose
#fatty liver disease
low fat diet
#GERD
cont famotidine
DVT ppx SCDs
Full code
I have spent at least 37min reviewing chart, test results, communication with consultants and providing direct patient care
Anticipated Discharge: > 48 hours
Subjective/Interval History
-
Date of Service: July 07, 2024
Objective Data
-
Labs:
Laboratory Results
07/07/24
05:46
WBC 23.4 H
Hgb 9.3 L
Hct 29.9 L
Plt Count 240
Sodium 142
Potassium 3.7
Chloride 111 H
Carbon Dioxide 29
BUN 4 L
Creatinine 0.4 L
Glucose 93
Calcium 7.2 L
Total Bilirubin 0.2
AST 18
ALT 12
Alkaline Phosphatase 123
Vital Signs:
Vital Signs
Temp Pulse Resp BP Pulse Ox
98.1 F 69 16 120/75 98
07/07/24 07:25 07/07/24 07:25 07/07/24 07:25 07/07/24 07:25 07/07/24 07:25
I&O
07/06/24 07/07/24 07/08/24
06:59 06:59 06:59
Intake Total 2320 / 2320 3420 / 3420
Output Total 1130 / 1130 455 / 455
Balance 1190 / 1190 2965 / 2965
Review of Systems
-
History Source: Patient
All other systems: Reviewed and negative
Physical Exam
-
General: No Apparent Distress
GI: Soft, Nontender and Ostomy; Negative Normal Bowel Sounds
Neuro: Awake, Alert, Oriented and AO x 3
Psych: Calm
--- NOTE | 2024-07-07 10:46 | CM ---
CM following re: discharge planning.
Reviewed pt's chart,met with pt and pt's life partner at bedside.
Pt is POD 3 lap DLI, continue supportive care.
Both pt and her partner are aware that PT/OT recommended home PT/OT and they preferred [facility]. A referral to [facility] noted.
Please fax discharge instructions to [facility] at [phone].
IMM reviewed, placed on chart, pt has a copy.
D/C plan: home with [facility] and partner support when medically stable. Partner to transport at discharge.
CM will follow with discharge plan updates as hospitalization progresses
--- NOTE | 2024-07-07 11:09 | WOUNDNOTE ---
Change Pouch with [place] Barrier #[id number] and Pouch #[id number].
Call supply company (list in folder provided) for monthly Ostomy supplies after discharge (ask VN to order supplies while on service).
Follow up with surgeon.
Call [facility] RN nurse for ostomy pouching concerns or leakage problems [phone] or [phone] or [phone].
--- NOTE | 2024-07-07 11:15 | WOUNDNOTE ---
[facility] RN NOTE: Reviewed chart and met with patient and spouse. Patient with new loop ileostomy created on 07/04. Patient has been emptying pouch independently. She tolerated regular breakfast this morning. Stoma is pink and budded with red tube catheter
attached as loop. Peristomal skin intact. Pouch changed with [employer] barrier # [id number] and pouch #[id number]. Patient and spouse asked many appropriate questions and all questions were answered. More supplies ordered for discharge if patient goes home
over the weekend. Plan is for home with [facility]N.
[2024-07-07] MEDS: SODIUM PHOSPHATE 255 MEQ IV (11:41)
--- NOTE | 2024-07-07 12:25 | W.PN.CRS1 ---
Today's Communication / Plan
-
await port study read
Assessment/Plan
-
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
hypothyroidism, GERD who presented with worsening abdominal pain associated with nausea and vomiting. CT scan shows large bowel obstruction with dilated proximal loops of small bowel associated with transverse colon cancer, cancer has significantly
decreased in size.
POD 3 lap DLI
AFVSS
WBC 23.4 (26.4), Hb 9.3 (9.0)
�Continue regular diet
�Continue pain control with Tylenol, Toradol, Dilaudid as needed; will add tramadol PRN
� Continue DVT PPx with Lovenox
� Encourage IS, OOB
�Strict intake/output, at elevated risk for high ostomy output due to anatomy
-Appreciate WOCN team
�Appreciate oncology
-IR port study performed today, awaiting report
� Appreciate hospitalist
Subjective Data
Procedure
07/04/2024- laparoscopic diverting loop ileostomy
Subjective Data
Date of Service: July 07, 2024
Patient states she feels well. She has no complaints. She has been out of bed. She denies nausea/vomiting. Tolerating a diet.
Objective Data
-
Vital Signs
Temp Pulse Resp BP Pulse Ox
98.1 F 69 16 120/75 98
07/07/24 07:25 07/07/24 07:25 07/07/24 07:25 07/07/24 07:25 07/07/24 07:25
Intake & Output
07/06/24 07/07/24 07/08/24
06:59 06:59 06:59
Intake Total 2320 / 2320 3420 / 3420
Output Total 1130 / 1130 455 / 455
Balance 1190 / 1190 2965 / 2965
Intake:
Oral fluids 1320 / 1320 1020 / 1020
IV fluids (Total) 900 / 900 2400 / 2400
IV piggybacks 100 / 100
Output:
Liquid stool amount 610 / 610 455 / 455
Ileostomy 610 / 610 455 / 455
Urine, Mandel 420 / 420
Urine, Voided 100 / 100
Other:
Number of approximated MODERATE 3 3
amounts of urine
Lab Results
07/07/24 05:46
07/07/24 05:46
Physical Exam
-
General: No Acute Distress and AOx3
Abdomen: Soft, Non Distended, Non Tender and Other (colostomy warm and pink with function, red rubber in place)
Skin: Warm and Dry
Incision: Clear, Dry, Intact
[2024-07-07 15:35] VITALS: BP 113/69
[2024-07-07] MEDS: LOVENOX 40 MG SC (17:54)
[2024-07-07] MEDS: ULTRAM 50 MG PO (17:57)
[2024-07-07 23:23] VITALS: BP 116/68
[2024-07-08] MEDS: TYLENOL PO (00:44)
[2024-07-08] MEDS: TYLENOL 1000 MG PO (05:52)
[2024-07-08] MEDS: ULTRAM 25 MG PO (05:52)
[2024-07-08 06:19] VITALS: BMI 21.8
[2024-07-08 06:32] LABS: % Basophils 0.7 % (0-2); % Eosinophils 2.1 % (0-6); % Immature Granulocytes 0.9 % (0-0.5); % Lymphocytes 5.4 % (20.5-51.1); % Monocytes 3.7 % (1.7-9.3); % Neutrophils 87.2 % (42.2-75.2); Absolute Basophils 0.2 10^3/uL (0-0.2); Absolute Eosinophils 0.5 10^3/uL (0-0.7); Absolute Immature Granulocytes 0.2 10^3/uL (0-0.05); Absolute Lymphocytes 1.2 10^3/uL (1.2-3.4); Absolute Monocytes 0.8 10^3/uL (0.1-0.6); Hematocrit 32.8 % (37.0-47.0); Hemoglobin 10.3 g/dL (12.0-16.0); Mean Corp Hgb Conc. 31.4 g/dL (33.0-37.0); Mean Corpuscular Volume 101.9 fL (81.0-99.0); Mean Platelet Volume 9.6 fL (7.4-10.4); Nucleated Red Blood Cells % 0 %; Platelet Count 282 10^3/uL (130-400); Red Blood Cell Count 3.22 10^6/uL (4.20-5.40); Red Cell Dist. Width 20.3 % (11.5-14.5); White Blood Cell Count 21.8 10^3/uL (4.8-10.8)
[2024-07-08 07:04] LABS: ALT (SGPT) 13 U/L (0-35); AST (SGOT) 20 U/L (14-36); Albumin 3.1 g/dl (3.5-5.0); Alkaline Phosphatase 145 U/L (38-126); Blood Urea Nitrogen 4 mg/dl (7-17); Calcium 7.6 mg/dl (8.4-10.2); Carbon Dioxide 24 mmol/L (22-30); Chloride 111 mmol/L (98-107); Estimated Creatinine Clearance 74 ml/min; Glucose 100 mg/dl (70-99); Magnesium 2.1 mg/dl (1.6-2.3); Phosphorus 2.8 mg/dl (2.5-4.5); Potassium 3.8 mmol/L (3.5-5.1); Sodium 141 mmol/L (135-145); Total Bilirubin 0.4 mg/dl (0.2-1.3); Total Protein 5.4 g/dl (6.3-8.2); eGFR > 60.00
[2024-07-08 08:24] VITALS: BP 139/90
[2024-07-08] MEDS: PROTONIX 20 MG PO (10:09)
[2024-07-08] MEDS: CALCIUM GLUCONATE 100 IV (10:13)
[2024-07-08] MEDS: PROTONIX IV IV (10:41)
[2024-07-08] MEDS: NSS (PRESERVATIVE FREE) IV (10:42)
--- NOTE | 2024-07-08 10:53 | CM ---
Addendum entered by Lurdes Grubbs 07/08/24 10:55:
Please fax discharge instructions to [facility] at [phone].
Original Note:
Patient plan is for discharge home with [facility] to follow. Patient has completed IMM and family to transport. CM will continue to follow for discharge planning needs.
--- NOTE | 2024-07-08 11:07 | W.PN.HOSP.TC ---
Today's Communication/Plan
-
pending final colorectal Sx advise
Assessment / Plan
Assessment / Plan
69yo F with PMHx of colon CA diagnosed in 2023 on chemo, hypothyroidism, GERD came with 2 days of nausea, vomiting and found large and small bowel obstruction 2/2 malignancy of transverse colon. Had diverting ileostomy. ALso with persistent
leukocytosis over past few weeks as per patient without clear signs of infection. Due to colostomy location - expected to have high volume output stoma - hydration advised. Leukocytosis improved to baseline. Patient tolerating regular diet and
pending final colorectalSx advice
A/P:
#Developing SBO and LBO 2/2 colon CA
NPO
IVF
Colorectal Sx: s/p diverting loop ileostomy on 07/04/24. Discussed periOP findings - no purulence seen, no concern for infection
pain mgmt
#Leukocytosis with leukemoid reaction
Improved to baseline
UA, chest XR and Bcx NTD
Most likely 2/2 recent chemo and reactive
Uric acid WNL
monitor CBC
Oncology to follow
#hypocalcemia
repleted
#minimally elevated procalcitonin
not informative with cancer
#Splenic cyst vs hemangioma
#L renal lesion, too small to characterize
follow up imaging advised in 6-12 mo with oncology
#Non-obstructing nephrolithiasis
monitor
#Hypothyroidism
TSH WNL
will hold off IV Synthroid since dose was minimal 25mcg - far from full physiologic replenishment dose
#fatty liver disease
low fat diet
#GERD
cont famotidine
DVT ppx SCDs
Full code
I have spent at least 37min reviewing chart, test results, communication with consultants and providing direct patient care
Anticipated Discharge: Within 24 hours
Subjective/Interval History
-
Date of Service: July 08, 2024
Objective Data
-
Labs:
Laboratory Results
07/08/24
06:18
WBC 21.8 H
Hgb 10.3 L
Hct 32.8 L
Plt Count 282
Sodium 141
Potassium 3.8
Chloride 111 H
Carbon Dioxide 24
BUN 4 L
Creatinine 0.4 L
Glucose 100 H
Calcium 7.6 L
Total Bilirubin 0.4
AST 20
ALT 13
Alkaline Phosphatase 145 H
Vital Signs:
Vital Signs
Temp Pulse Resp BP Pulse Ox
98.4 F 83 16 139/90 98
07/08/24 08:24 07/08/24 08:24 07/08/24 08:24 07/08/24 08:24 07/08/24 10:43
I&O
07/07/24 07/08/24 07/09/24
06:59 06:59 06:59
Intake Total 3420 / 3420 1440 / 1440 240 / 240
Output Total 455 / 455 700 / 700
Balance 2965 / 2965 740 / 740 240 / 240
Review of Systems
-
History Source: Patient
All other systems: Reviewed and negative
Physical Exam
-
General: No Apparent Distress
Respiratory: Clear to Auscultation
GI: Soft, Nontender and Ostomy
Musculoskeletal: No Clubbing, No Cyanosis and No Edema
Neuro: Awake, Alert, Oriented and AO x 3
Psych: Calm
--- NOTE | 2024-07-08 12:09 | W.DCSUMMARY ---
Discharge Summary
Discharge Data
Date of Admission: 07/01/24
Date of Discharge: 07/08/24
-
Pending Results: No
Hospital Course
69yo F with PMHx of colon CA diagnosed in 2023 on chemo, hypothyroidism, GERD came with 2 days of nausea, vomiting and found large and small bowel obstruction 2/2 malignancy of transverse colon. Had diverting ileostomy. ALso with persistent
leukocytosis over past few weeks as per patient without clear signs of infection. Due to colostomy location - expected to have high volume output stoma - hydration advised. Leukocytosis improved to baseline. Patient tolerating regular diet and
pending final colorectalSx advice
I have spent at least 37min reviewing chart, test results, communication with consultants and providing direct patient care
Patient was managed for:
#Developing SBO and LBO 2/2 colon CA
#Leukocytosis with leukemoid reaction
#hypocalcemia
#minimally elevated procalcitonin
#Splenic cyst vs hemangioma
#L renal lesion, too small to characterize
#Non-obstructing nephrolithiasis
#Hypothyroidism
TSH WNL
#fatty liver disease
#GERD
Discharge Plan
-
Patient Disposition: Home (Routine Discharge)
Discharge Diagnosis/Procedures: Colon CA
Diet: Low Residue
Activity: No strenuous activity
Additional Activity: No lifting over 10lbs (gallon of milk)
Driving Restrictions: Not until seen by your Dr
Bathing Restrictions: OK to Shower
Activity Restrictions/Additional Instructions:
Ileostomy supplies: Sixto wafer # [id number], Christine seals and [place] pouch # [id number]. Change 2 times a week and as needed for leakage.
Call supply company (list in folder provided) for monthly Ostomy supplies after discharge (ask VN to order supplies while on service).
Follow up with surgeon.
Call [facility] RN nurse for ostomy pouching concerns or leakage problems [phone] or [phone] or [phone].
Referrals:
Nina Segal MD [Active] - in less than 1 week
Amando Martinez MD [Family Provider] -
Mehul Girard MD [Active] - in two weeks
Prescriptions:
Continued
levothyroxine 25 mcg Tablet
25 mcg PO DAILY
famotidine 10 mg Tablet
10 mg PO HS
polyethylene glycol 3350 [Miralax] 17 gram Powder In Packet
17 g PO BID PRN (Reason: constipation)
tramadol 50 mg Tablet
50 mg PO Q12H
acetaminophen 500 mg Tablet
500 mg PO Q6H PRN (Reason: pain)
omeprazole 20 mg Tablet,Delayed Release (Dr/Ec)
20 mg PO DAILY
prochlorperazine maleate 10 mg Tablet
10 mg PO Q8H PRN (Reason: Nausea)
ondansetron HCl 4 mg Tablet
4 mg PO Q8H PRN (Reason: nausea)
Discontinued
hydromorphone [Dilaudid] 2 mg tablet
2 mg PO Q6H PRN (Reason: was never able to fill rx)
Patient Comments:
pt has never filled this script was unable to at pharmacy, has not been taking
Rx Instructions:
NEVER FILLED, UNABLE TO
Discharge Orders:
Discharge Patient (As Directed); Ordered 07/08/24
Ordered By: Vincent Manzo
Discharge Date and Time
Print Language: YORUBA
--- NOTE | 2024-07-08 12:13 | W.PN.CRS1 ---
Today's Communication / Plan
-
dispo planning
Assessment/Plan
-
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
hypothyroidism, GERD who presented with worsening abdominal pain associated with nausea and vomiting. CT scan shows large bowel obstruction with dilated proximal loops of small bowel associated with transverse colon cancer, cancer has significantly
decreased in size.
POD 4 lap DLI
AFVSS
Labs stable
�Continue regular diet
�Continue pain control with PO meds
� Continue DVT PPx with Lovenox
� Encourage IS, OOB
-Appreciate WOCN team
�Appreciate oncology
� Appreciate hospitalist
Ready for d/c from surgical standpoint
Subjective Data
Procedure
07/04/2024- laparoscopic diverting loop ileostomy
Subjective Data
Date of Service: July 08, 2024
Patient seen and examined at bedside with Dr. Mcdermott. Partner present. She denies pain. Tolerating diet. No n/v. Eager to go home.
Objective Data
-
Vital Signs
Temp Pulse Resp BP Pulse Ox
98.4 F 83 16 139/90 98
07/08/24 08:24 07/08/24 08:24 07/08/24 08:24 07/08/24 08:24 07/08/24 10:43
Intake & Output
07/07/24 07/08/24 07/09/24
06:59 06:59 06:59
Intake Total 3420 / 3420 1440 / 1440 240 / 240
Output Total 455 / 455 700 / 700
Balance 2965 / 2965 740 / 740 240 / 240
Intake:
Oral fluids 1020 / 1020 1440 / 1440 240 / 240
IV fluids (Total) 2400 / 2400
Output:
Liquid stool amount 455 / 455 700 / 700
Ileostomy 455 / 455 700 / 700
Other:
Number of approximated MODERATE 3 2 1
amounts of urine
Lab Results
07/08/24 06:18
07/08/24 06:18
Physical Exam
-
General: No Acute Distress and AOx3
Abdomen: Soft, Non Distended, Non Tender and Other (colostomy warm and pink with function, red rubber in place)
Skin: Warm and Dry
Incision: Clear, Dry, Intact
== END 2024-07-08 15:10 | disposition home health service (06) | DRG 330 ==
LOC: 2 SOUTH 20:53
PROVIDERS: Internal Medicine; Physician Assistant; Surgery; ADMITTING PHYSICIAN Internal Medicine; ATTENDING PHYSICIAN Internal Medicine; CONSULT PHYSICIAN Internal Medicine Hematology & Oncology; EMERGENCY PHYSICIAN Emergency Medicine; FAMILY PHYSICIAN Family Medicine; OTHER PHYSICIAN Surgery
PROC: 0D9670Z Drainage of Stomach with Drainage Device, Via Natural or Artificial Opening (ICD-10-PCS; 2024-07-01)
PROC: 0D1B4Z4 Bypass Ileum to Cutaneous, Percutaneous Endoscopic Approach (ICD-10-PCS; 2024-07-04)
PROC: 0WJG4ZZ Inspection of Peritoneal Cavity, Percutaneous Endoscopic Approach (ICD-10-PCS; 2024-07-04)
DX: C18.4 Malignant neoplasm of transverse colon (principal); K50.90 Crohn's disease, unspecified, without complications; K56.690 Other partial intestinal obstruction; E03.9 Hypothyroidism, unspecified; N20.0 Calculus of kidney; K76.0 Fatty (change of) liver, not elsewhere classified; D72.823 Leukemoid reaction; K21.9 Gastro-esophageal reflux disease without esophagitis; G62.0 Drug-induced polyneuropathy; I73.00 Raynaud's syndrome without gangrene; E83.51 Hypocalcemia; D50.9 Iron deficiency anemia, unspecified; D73.4 Cyst of spleen; G47.33 Obstructive sleep apnea (adult) (pediatric); M34.9 Systemic sclerosis, unspecified; Z92.21 Personal history of antineoplastic chemotherapy; Z88.0 Allergy status to penicillin; Z88.8 Allergy status to other drugs, medicaments and biological substances; Z91.048 Other nonmedicinal substance allergy status; Z79.890 Hormone replacement therapy; Z98.84 Bariatric surgery status; Z90.49 Acquired absence of other specified parts of digestive tract; Z80.3 Family history of malignant neoplasm of breast; Z85.3 Personal history of malignant neoplasm of breast; Z90.13 Acquired absence of bilateral breasts and nipples; Z80.8 Family history of malignant neoplasm of other organs or systems; Z80.42 Family history of malignant neoplasm of prostate; Z82.49 Family history of ischemic heart disease and other diseases of the circulatory system; Z92.3 Personal history of irradiation; Z82.3 Family history of stroke
CPT/HCPCS: 36415; 36598; 43752; 71046; 74018; 74022; 74177; 80048; 80053; 81003; 81015; 82248; 82330; 82607; 82728; 82746; 83540; 83550; 83690; 83735; 84100; 84443; 84550; 85025; 85610; 85730; 86850; 86900; 86901; 87040; 96361; 96374; 96375; 96376; 99285; Q9967

== ENCOUNTER → 2024-07-15 07:25 | Outpatient (REF) | payer MEDICARE, SELFPAY ==
[2024-07-15 08:26] LABS: % Basophils 0.8 % (0-2); % Eosinophils 3.8 % (0-6); % Immature Granulocytes 1.3 % (0-0.5); % Lymphocytes 8.4 % (20.5-51.1); % Monocytes 7.1 % (1.7-9.3); % Neutrophils 78.6 % (42.2-75.2); Absolute Basophils 0.1 10^3/uL (0-0.2); Absolute Eosinophils 0.5 10^3/uL (0-0.7); Absolute Immature Granulocytes 0.2 10^3/uL (0-0.05); Absolute Lymphocytes 1.1 10^3/uL (1.2-3.4); Absolute Monocytes 0.9 10^3/uL (0.1-0.6); Absolute Neutrophils 10.4 10^3/uL (1.4-6.5); Hematocrit 38.8 % (37.0-47.0); Hemoglobin 11.8 g/dL (12.0-16.0); Mean Corp Hgb Conc. 30.4 g/dL (33.0-37.0); Mean Corpuscular Hgb 31.6 pg (27.0-31.0); Mean Platelet Volume 9.4 fL (7.4-10.4); Nucleated Red Blood Cells % 0 %; Platelet Count 545 10^3/uL (130-400); Red Blood Cell Count 3.73 10^6/uL (4.20-5.40); Red Cell Dist. Width 19.6 % (11.5-14.5); White Blood Cell Count 13.2 10^3/uL (4.8-10.8)
[2024-07-15 08:37] LABS: ALT (SGPT) 39 U/L (0-35); AST (SGOT) 45 U/L (14-36); Albumin 4.3 g/dl (3.5-5.0); Alkaline Phosphatase 127 U/L (38-126); Blood Urea Nitrogen 11 mg/dl (7-17); Calcium 8.7 mg/dl (8.4-10.2); Carbon Dioxide 22 mmol/L (22-30); Chloride 107 mmol/L (98-107); Glucose 102 mg/dl (70-99); Potassium 5.1 mmol/L (3.5-5.1); Sodium 139 mmol/L (135-145); Total Bilirubin 0.4 mg/dl (0.2-1.3); Total Protein 6.8 g/dl (6.3-8.2); eGFR > 60.00
== END ==
LOC: REG 07:25
PROVIDERS: ATTENDING PHYSICIAN Internal Medicine Hematology & Oncology; FAMILY PHYSICIAN Family Medicine
DX: C50.412 Malignant neoplasm of upper-outer quadrant of left female breast (principal); D50.9 Iron deficiency anemia, unspecified; C18.4 Malignant neoplasm of transverse colon; I73.00 Raynaud's syndrome without gangrene; G62.0 Drug-induced polyneuropathy; M34.9 Systemic sclerosis, unspecified
CPT/HCPCS: 36415; 80053; 85025

== ENCOUNTER → 2024-07-20 07:19 | Outpatient (REF) | payer MEDICARE, SELFPAY ==
[2024-07-20 11:40] LABS: Blood Urea Nitrogen 14 mg/dl (7-17); Calcium 8.5 mg/dl (8.4-10.2); Carbon Dioxide 19 mmol/L (22-30); Chloride 107 mmol/L (98-107); Glucose 117 mg/dl (70-99); Magnesium 2.3 mg/dl (1.6-2.3); Potassium 5.4 mmol/L (3.5-5.1); Sodium 138 mmol/L (135-145); eGFR > 60.00
== END ==
LOC: REG 07:19
PROVIDERS: ATTENDING PHYSICIAN Surgery
DX: K94.10 Enterostomy complication, unspecified (principal)
CPT/HCPCS: 36415; 80048; 83735

== ENCOUNTER → 2024-07-22 07:08 | Outpatient (REF) | payer MEDICARE, SELFPAY ==
[2024-07-22 08:27] LABS: % Basophils 0.9 % (0-2); % Eosinophils 4.3 % (0-6); % Immature Granulocytes 0.4 % (0-0.5); % Lymphocytes 10.9 % (20.5-51.1); % Monocytes 6.1 % (1.7-9.3); % Neutrophils 77.4 % (42.2-75.2); Absolute Basophils 0.1 10^3/uL (0-0.2); Absolute Eosinophils 0.4 10^3/uL (0-0.7); Absolute Monocytes 0.6 10^3/uL (0.1-0.6); Absolute Neutrophils 7.4 10^3/uL (1.4-6.5); Hematocrit 38.5 % (37.0-47.0); Hemoglobin 11.9 g/dL (12.0-16.0); Mean Corp Hgb Conc. 30.9 g/dL (33.0-37.0); Mean Corpuscular Hgb 31.9 pg (27.0-31.0); Mean Corpuscular Volume 103.2 fL (81.0-99.0); Mean Platelet Volume 9.5 fL (7.4-10.4); Nucleated Red Blood Cells % 0 %; Platelet Count 429 10^3/uL (130-400); Red Blood Cell Count 3.73 10^6/uL (4.20-5.40); Red Cell Dist. Width 17.4 % (11.5-14.5); White Blood Cell Count 9.6 10^3/uL (4.8-10.8)
[2024-07-22 08:55] LABS: ALT (SGPT) 137 U/L (0-35); AST (SGOT) 133 U/L (14-36); Albumin 3.8 g/dl (3.5-5.0); Alkaline Phosphatase 249 U/L (38-126); Blood Urea Nitrogen 12 mg/dl (7-17); Calcium 8.8 mg/dl (8.4-10.2); Carbon Dioxide 24 mmol/L (22-30); Chloride 108 mmol/L (98-107); Glucose 85 mg/dl (70-99); Potassium 5.8 mmol/L (3.5-5.1); Sodium 140 mmol/L (135-145); Total Bilirubin 0.4 mg/dl (0.2-1.3); Total Protein 6.4 g/dl (6.3-8.2); eGFR > 60.00
== END ==
LOC: REG 07:08
PROVIDERS: ATTENDING PHYSICIAN Internal Medicine Hematology & Oncology; FAMILY PHYSICIAN Family Medicine
DX: C50.412 Malignant neoplasm of upper-outer quadrant of left female breast (principal); D50.9 Iron deficiency anemia, unspecified; C18.4 Malignant neoplasm of transverse colon; I73.00 Raynaud's syndrome without gangrene; G62.0 Drug-induced polyneuropathy; M34.9 Systemic sclerosis, unspecified
CPT/HCPCS: 36415; 80053; 85025

== ENCOUNTER → 2024-07-25 07:03 | Outpatient (REF) | payer MEDICARE, SELFPAY ==
[2024-07-25 08:49] LABS: Blood Urea Nitrogen 10 mg/dl (7-17); Carbon Dioxide 25 mmol/L (22-30); Chloride 104 mmol/L (98-107); Glucose 102 mg/dl (70-99); Magnesium 2.2 mg/dl (1.6-2.3); Potassium 5.3 mmol/L (3.5-5.1); Sodium 139 mmol/L (135-145); eGFR > 60.00
== END ==
LOC: REG 07:03
PROVIDERS: ATTENDING PHYSICIAN Surgery; FAMILY PHYSICIAN Family Medicine
DX: K94.10 Enterostomy complication, unspecified (principal)
CPT/HCPCS: 36415; 80048; 83735

== ENCOUNTER → 2024-08-05 07:18 | Outpatient (REF) | payer MEDICARE, SELFPAY ==
[2024-08-05 08:48] LABS: Hematocrit 38.2 % (37.0-47.0); Hemoglobin 12.1 g/dL (12.0-16.0); Mean Corp Hgb Conc. 31.7 g/dL (33.0-37.0); Mean Corpuscular Hgb 32.9 pg (27.0-31.0); Mean Corpuscular Volume 103.8 fL (81.0-99.0); Mean Platelet Volume 9.3 fL (7.4-10.4); Platelet Count 332 10^3/uL (130-400); Red Blood Cell Count 3.68 10^6/uL (4.20-5.40); Red Cell Dist. Width 16.4 % (11.5-14.5); White Blood Cell Count 30.8 10^3/uL (4.8-10.8)
[2024-08-05 10:20] LABS: ALT (SGPT) 34 U/L (0-35); AST (SGOT) 29 U/L (14-36); Albumin 3.7 g/dl (3.5-5.0); Alkaline Phosphatase 175 U/L (38-126); Blood Urea Nitrogen 13 mg/dl (7-17); Calcium 8.6 mg/dl (8.4-10.2); Carbon Dioxide 22 mmol/L (22-30); Chloride 111 mmol/L (98-107); Glucose 86 mg/dl (70-99); Potassium 4.9 mmol/L (3.5-5.1); Sodium 141 mmol/L (135-145); Total Bilirubin 0.2 mg/dl (0.2-1.3); Total Protein 6.2 g/dl (6.3-8.2); eGFR > 60.00
[2024-08-05 11:50] LABS: Absolute Neutrophils -Man Diff 27.4 10^3/uL (1.4-6.5); Band Neutrophils 12 % (0-3); Eosinophils 2 % (0-6); Lymphocytes 6 % (20-51); Monocytes 3 % (2-9); Segmented Neutrophils 77 % (42-75)
[2024-08-05 11:51] LABS: Platelets Checked YES
[2024-08-05 11:52] LABS: Anisocytosis Slight; Normal RBC Morphology No; Tear Drop Red Blood Cells FEW; Total Cells Counted 100
== END ==
LOC: REG 07:18
PROVIDERS: ATTENDING PHYSICIAN Internal Medicine Hematology & Oncology; FAMILY PHYSICIAN Family Medicine
DX: C50.412 Malignant neoplasm of upper-outer quadrant of left female breast (principal); D50.9 Iron deficiency anemia, unspecified; C18.4 Malignant neoplasm of transverse colon; I73.00 Raynaud's syndrome without gangrene; G62.0 Drug-induced polyneuropathy; M34.9 Systemic sclerosis, unspecified
CPT/HCPCS: 36415; 80053; 85025

== ENCOUNTER → 2024-08-19 07:12 | Outpatient (REF) | payer MEDICARE, SELFPAY ==
[2024-08-19 08:13] LABS: Hematocrit 35.2 % (37.0-47.0); Mean Corp Hgb Conc. 31.3 g/dL (33.0-37.0); Mean Corpuscular Hgb 32.1 pg (27.0-31.0); Mean Corpuscular Volume 102.6 fL (81.0-99.0); Mean Platelet Volume 9.3 fL (7.4-10.4); Platelet Count 340 10^3/uL (130-400); Red Blood Cell Count 3.43 10^6/uL (4.20-5.40); Red Cell Dist. Width 16.6 % (11.5-14.5)
[2024-08-19 08:34] LABS: ALT (SGPT) 31 U/L (0-35); AST (SGOT) 25 U/L (14-36); Albumin 3.9 g/dl (3.5-5.0); Alkaline Phosphatase 141 U/L (38-126); Blood Urea Nitrogen 7 mg/dl (7-17); Calcium 8.9 mg/dl (8.4-10.2); Carbon Dioxide 26 mmol/L (22-30); Chloride 110 mmol/L (98-107); Glucose 74 mg/dl (70-99); Potassium 5.3 mmol/L (3.5-5.1); Sodium 141 mmol/L (135-145); Total Bilirubin 0.2 mg/dl (0.2-1.3); Total Protein 6.2 g/dl (6.3-8.2); eGFR > 60.00
[2024-08-19 08:36] LABS: % Basophils 0.5 % (0-2); % Eosinophils 1.3 % (0-6); % Immature Granulocytes 1.2 % (0-0.5); % Lymphocytes 5.2 % (20.5-51.1); % Monocytes 6.1 % (1.7-9.3); % Neutrophils 85.7 % (42.2-75.2); Absolute Basophils 0.1 10^3/uL (0-0.2); Absolute Eosinophils 0.3 10^3/uL (0-0.7); Absolute Immature Granulocytes 0.2 10^3/uL (0-0.05); Absolute Monocytes 1.2 10^3/uL (0.1-0.6); Absolute Neutrophils 17.1 10^3/uL (1.4-6.5); Nucleated Red Blood Cells % 0 %
== END ==
LOC: REG 07:12
PROVIDERS: ATTENDING PHYSICIAN Internal Medicine Hematology & Oncology; FAMILY PHYSICIAN Family Medicine; REFERRING PHYSICIAN Surgery
DX: C50.412 Malignant neoplasm of upper-outer quadrant of left female breast (principal); D50.9 Iron deficiency anemia, unspecified; C18.4 Malignant neoplasm of transverse colon; I73.00 Raynaud's syndrome without gangrene; G62.0 Drug-induced polyneuropathy; M34.9 Systemic sclerosis, unspecified
CPT/HCPCS: 36415; 80053; 85025

== ENCOUNTER → 2024-08-22 07:32 | Outpatient (REF) | payer MEDICARE, SELFPAY | LOC: PAVMRI 07:32 | PROVIDERS: ATTENDING PHYSICIAN Internal Medicine Hematology & Oncology; FAMILY PHYSICIAN Family Medicine; REFERRING PHYSICIAN Surgery | DX: C50.412 Malignant neoplasm of upper-outer quadrant of left female breast (principal) | CPT/HCPCS: 74183; A9575 ==

== ENCOUNTER 2024-09-02 05:37 | Inpatient (IN) | payer MEDICARE, SELFPAY ==
[2024-09-01 23:34] VITALS: BP 113/71
[2024-09-02 00:20] VITALS: BMI 19.9
--- NOTE | 2024-09-02 00:36 | ED.GENMED ---
History of Present Illness
<Dai Bell EXPLOSIVE ORDNANCE DISPOSAL TECHNICIAN - Last Filed: 09/03/24 17:41>
General
Chief Complaint: Abdominal Pain
Source: patient and physician
Exam Limitations: none
Time Seen by Provider: 09/01/24 23:55
Nursing documentation reviewed up to this point in time: agreed with
History of Present Illness
History of Present Illness:
69 yo female w h/o colon cancer, had ileostomy diverting 2 months ago, patient states it has been working well until 4 hours ago when there was no output and she had a lot of gas and the abdominal area around the stoma has become hard and tender.
She denies fever, does feel nauseous but no vomiting.
Per Dr. Monroy: 2mo out from a diverting ileostomy for advanced colon can by dr. girard now with abd pain, nausea and bulge around the ostomy concerning for a parastomal hernia. please try to reduce it (will probably have to take the appliance
off)�if unable or it doesn�t seem to be the source please get a ct with po and iv contrast. place ng if she�s obstructed.
Past History
<Dai Bell EXPLOSIVE ORDNANCE DISPOSAL TECHNICIAN - Last Filed: 09/03/24 17:41>
Past History
ED Past Medical History: None
ED Past Surgical History: None
Phy Exam
<Dai Bell, EXPLOSIVE ORDNANCE DISPOSAL TECHNICIAN - Last Filed: 09/03/24 17:41>
Physical Exam
Physical Exam:
GENERAL: No acute distress. A&Ox3.
CONSTITUTIONAL: Afebrile.
EYES: clear, conjunctivae normal
ENMT: moist mucus membranes, Pharynx nl
RESPIRATORY: Regular respirations, nonlabored, lungs clear.
CARDIOVASCULAR: Regular rate and rhythm, no murmurs, no rubs.
GI: Slightly rotund, firm and tender around the ileostomy site. The ileostomy bag is intact and the stoma looks pink and healthy the, no drainage soft, nontender, normal BS
MUSCULOSKELETAL: Moves with ease. Well perfused.
SKIN: Warm, dry, pale
PSYCH: Normal mood and affect. Well kept, interactive and appropriate
NEUROLOGIC: Awake, alert and oriented. No focal neurological deficits
Course
<Dai Bell EXPLOSIVE ORDNANCE DISPOSAL TECHNICIAN - Last Filed: 09/03/24 17:41>
Orders/Labs/Results
Orders:
Orders
09/02/24 00:38
0.9% Sodium Chloride 500 ml [Nss] 500 ml IV BOLUS
HYDROmorphone [Dilaudid] 0.5 mg IV NOW STA
Ondansetron Injectable [Zofran] 4 mg IV NOW STA
09/02/24 00:39
Iohexol [Omnipaque] See Protocol PO NOW STA
09/02/24 00:40
CT Abd/pel W Iv And Oral Contr Urgent
Comment:
Reason For Exam: ileostomy stopped draining, pain, swelling around
09/02/24 00:47
Complete Blood Count/With Diff Urgent
Comprehensive Metabolic Panel Urgent
Lipase Urgent
Manual Differential Urgent
Comment: ADD ON
09/02/24 02:22
Ondansetron Injectable [Zofran] 4 mg IV NOW STA
09/02/24 02:36
HYDROmorphone [Dilaudid] 0.5 mg IV NOW STA
09/02/24 04:19
GI tube insertion- Treatment ONCE
0.9% Sodium Chloride 1000 ml [Nss] 1,000 ml IV 200 mls/hr
Metoclopramide [Reglan] 10 mg IV NOW STA
09/02/24 04:56
Gastrointestinal Tubes As Directed
Type: Labette sump
To suction?: Yes
Type of suction: Low intermittent
Irrigate tube?: Yes
Irrigant: Tap Water
Frequency: Q4H
Amount in mls: 30
Irrigation Directions: Irrigate Q4H and PRN
09/02/24 05:02
Admit/Transfer Patient As Directed
Co-Sign Provider:
Level of Care: Inpatient admission
Assign to:: Medical/Surgical
Physician / Group: [facility]
Diagnosis: SBO, Colon Cancer
Reason for Hospitalization: SBO, Colon Cancer
Expected length of stay greater than two midnights?: Yes
ELOS- Estimated Length of Stay in days: 4
I certify the patient meets the requirements for IP care: Yes
Code Status As Directed
Resuscitation Status: Limited DNR
Limited DNR: -No intubation
PRN Pain Medication Management As Directed
May give lesser potent ordered pain med per pt: Yes
preference::
Protocol:: Medication orders for pain may be administered in a
manner that supports deferring to patient preference
when the pt is:
- Requesting an ordered lesser potent pain medication.
Least to most potent pain medications are defined
as: acetaminophen < NSAID < tramadol < opioids
(morphine, oxycodone, hydromorphone).
- Requesting a lesser dose of the same medication IF
ORDERED.
- Requesting a less intrusive route of administration
if both routes are prescribed by the provider (PO <
IV).
09/02/24 05:36
HYDROmorphone [Dilaudid] 0.5 mg IV Q4HPRN PRN
09/02/24 Breakfast
NPO
Allow oral meds: Yes
Allow clear liquids: Sips of Clears
09/02/24 08:04
Calcium Gluconate 2 gram/100mL [Calcium Gluconate] 2 gram in 100 ml IV ONCE
Lactated Ringers [Lr] 1,000 ml IV 100 mls/hr
Ondansetron Injectable [Zofran] 4 mg IV Q6HPRN PRN
Pantoprazole [Protonix IV] 40 mg IV DAILY
09/02/24 08:04
ColoRectal Surgery Consult Routine
Consulting Provider: Mehul Girard
Was physician already notified: No
Reason for consult: SBO, Colon Cancer
Consult Notification Routine
Specialty to Notify: Colorectal Surgery
Date consulting provider notified: 09/02/24
Time consulting provider notified: 08:16
Notified:: Provider
Comment: tt
Activity As Directed
Activity Level: Ambulate
With Assistance
I/O [Intake/ Output] As Directed
Frequency: q12h
Comment: please include NGT outputs 12h
Ostomy Care As Directed
Pneumatic Compression Sleeves As Directed
Type: Knee high
Vital Signs As Directed
Frequency: Per unit guidelines
Oxygen Therapy [O2 Therapy] [RESP] Routine
Titrate/Wean O2 to maintain O2 sat greater than (%): 94
DX Deep Vein Thrombosis Video Routine
09/03/24 06:45
Basic Metabolic Panel IN AM
Complete Blood Count/No Diff IN AM
Abnormal Lab Results
09/02/24
00:47
WBC 30.8 H 10^3/uL
(4.8-10.8)
RBC 3.29 L 10^6/uL
(4.20-5.40)
Hgb 10.7 L g/dL
(12.0-16.0)
Hct 33.6 L %
(37.0-47.0)
MCV 102.1 H fL
(81.0-99.0)
MCH 32.5 H pg
(27.0-31.0)
MCHC 31.8 L g/dL
(33.0-37.0)
RDW 15.5 H %
(11.5-14.5)
Abs Neuts (Manual) 29.2 H 10^3/uL
(1.4-6.5)
Segmented Neutrophils 91 H %
(42-75)
Band Neutrophils 4 H %
(0-3)
Lymphocytes (Manual) 4 L %
(20-51)
Monocytes (Manual) 1 L %
(2-9)
Chloride 119 H mmol/L
(98-107)
Carbon Dioxide 15 L mmol/L
(22-30)
Creatinine 0.4 L mg/dL
(0.6-1.0)
Glucose 137 H mg/dl
(70-99)
Calcium 7.5 L mg/dl
(8.4-10.2)
Alkaline Phosphatase 166 H U/L
(38-126)
Total Protein 5.6 L g/dl
(6.3-8.2)
Albumin 3.4 L g/dl
(3.5-5.0)
09/02/24 00:47
09/02/24 00:47
Vital Signs
Initial and Last Documented VS:
Initial Vital Signs
Temp Pulse Resp BP Pulse Ox
97.8 F 77 18 113/71 97
09/01/24 23:34 09/01/24 23:34 09/01/24 23:34 09/01/24 23:34 09/01/24 23:34
Last Documented Vital Signs
Temp Pulse Resp BP Pulse Ox
97.2 F 89 16 98/66 95
09/03/24 15:45 09/03/24 15:45 09/03/24 15:45 09/03/24 15:45 09/03/24 15:45
Home Stereo Equipment Installer consulted with Physician
Home Stereo Equipment Installer consulted with physician?: Yes
Name of Physician Consulted: [place]
<Yamile Alcantara, DO - Last Filed: 09/02/24 04:24>
Orders/Labs/Results
Orders:
Orders
09/02/24 00:38
0.9% Sodium Chloride 500 ml [Nss] 500 ml IV BOLUS
HYDROmorphone [Dilaudid] 0.5 mg IV NOW STA
Ondansetron Injectable [Zofran] 4 mg IV NOW STA
09/02/24 00:39
Iohexol [Omnipaque] See Protocol PO NOW STA
09/02/24 00:40
CT Abd/pel W Iv And Oral Contr Urgent
Comment:
Reason For Exam: ileostomy stopped draining, pain, swelling around
09/02/24 00:47
Complete Blood Count/With Diff Urgent
Comprehensive Metabolic Panel Urgent
Lipase Urgent
Manual Differential Urgent
Comment: ADD ON
09/02/24 02:22
Ondansetron Injectable [Zofran] 4 mg IV NOW STA
09/02/24 02:36
HYDROmorphone [Dilaudid] 0.5 mg IV NOW STA
09/02/24 04:19
GI tube insertion- Treatment ONCE
0.9% Sodium Chloride 1000 ml [Nss] 1,000 ml IV 200 mls/hr
Metoclopramide [Reglan] 10 mg IV NOW STA
09/02/24 04:56
Gastrointestinal Tubes As Directed
Type: Labette sump
To suction?: Yes
Type of suction: Low intermittent
Irrigate tube?: Yes
Irrigant: Tap Water
Frequency: Q4H
Amount in mls: 30
Irrigation Directions: Irrigate Q4H and PRN
09/02/24 05:02
Admit/Transfer Patient As Directed
Co-Sign Provider:
Level of Care: Inpatient admission
Assign to:: Medical/Surgical
Physician / Group: Gallito
Diagnosis: SBO, Colon Cancer
Reason for Hospitalization: SBO, Colon Cancer
Expected length of stay greater than two midnights?: Yes
ELOS- Estimated Length of Stay in days: 4
I certify the patient meets the requirements for IP care: Yes
Code Status As Directed
Resuscitation Status: Limited DNR
Limited DNR: -No intubation
PRN Pain Medication Management As Directed
May give lesser potent ordered pain med per pt: Yes
preference::
Protocol:: Medication orders for pain may be administered in a
manner that supports deferring to patient preference
when the pt is:
- Requesting an ordered lesser potent pain medication.
Least to most potent pain medications are defined
as: acetaminophen < NSAID < tramadol < opioids
(morphine, oxycodone, hydromorphone).
- Requesting a lesser dose of the same medication IF
ORDERED.
- Requesting a less intrusive route of administration
if both routes are prescribed by the provider (PO <
IV).
09/02/24 05:36
HYDROmorphone [Dilaudid] 0.5 mg IV Q4HPRN PRN
09/02/24 Breakfast
NPO
Allow oral meds: Yes
Allow clear liquids: Sips of Clears
09/02/24 08:04
Calcium Gluconate 2 gram/100mL [Calcium Gluconate] 2 gram in 100 ml IV ONCE
Lactated Ringers [Lr] 1,000 ml IV 100 mls/hr
Ondansetron Injectable [Zofran] 4 mg IV Q6HPRN PRN
Pantoprazole [Protonix IV] 40 mg IV DAILY
09/02/24 08:04
ColoRectal Surgery Consult Routine
Consulting Provider: Mehul Girard
Was physician already notified: No
Reason for consult: SBO, Colon Cancer
Consult Notification Routine
Specialty to Notify: Colorectal Surgery
Date consulting provider notified: 09/02/24
Time consulting provider notified: 08:16
Notified:: Provider
Comment: tt
Activity As Directed
Activity Level: Ambulate
With Assistance
I/O [Intake/ Output] As Directed
Frequency: q12h
Comment: please include NGT outputs 12h
Ostomy Care As Directed
Pneumatic Compression Sleeves As Directed
Type: Knee high
Vital Signs As Directed
Frequency: Per unit guidelines
Oxygen Therapy [O2 Therapy] [RESP] Routine
Titrate/Wean O2 to maintain O2 sat greater than (%): 94
DX Deep Vein Thrombosis Video Routine
09/03/24 06:45
Basic Metabolic Panel IN AM
Complete Blood Count/No Diff IN AM
Abnormal Lab Results
09/02/24
00:47
WBC 30.8 H 10^3/uL
(4.8-10.8)
RBC 3.29 L 10^6/uL
(4.20-5.40)
Hgb 10.7 L g/dL
(12.0-16.0)
Hct 33.6 L %
(37.0-47.0)
MCV 102.1 H fL
(81.0-99.0)
MCH 32.5 H pg
(27.0-31.0)
MCHC 31.8 L g/dL
(33.0-37.0)
RDW 15.5 H %
(11.5-14.5)
Abs Neuts (Manual) 29.2 H 10^3/uL
(1.4-6.5)
Segmented Neutrophils 91 H %
(42-75)
Band Neutrophils 4 H %
(0-3)
Lymphocytes (Manual) 4 L %
(20-51)
Monocytes (Manual) 1 L %
(2-9)
Chloride 119 H mmol/L
(98-107)
Carbon Dioxide 15 L mmol/L
(22-30)
Creatinine 0.4 L mg/dL
(0.6-1.0)
Glucose 137 H mg/dl
(70-99)
Calcium 7.5 L mg/dl
(8.4-10.2)
Alkaline Phosphatase 166 H U/L
(38-126)
Total Protein 5.6 L g/dl
(6.3-8.2)
Albumin 3.4 L g/dl
(3.5-5.0)
09/02/24 00:47
09/02/24 00:47
Vital Signs
Initial and Last Documented VS:
Initial Vital Signs
Temp Pulse Resp BP Pulse Ox
97.8 F 77 18 113/71 97
09/01/24 23:34 09/01/24 23:34 09/01/24 23:34 09/01/24 23:34 09/01/24 23:34
Last Documented Vital Signs
Temp Pulse Resp BP Pulse Ox
97.2 F 89 16 98/66 95
09/03/24 15:45 09/03/24 15:45 09/03/24 15:45 09/03/24 15:45 09/03/24 15:45
<Dai Bell, EXPLOSIVE ORDNANCE DISPOSAL TECHNICIAN - Last Filed: 09/03/24 17:41>
MDM/Problems Addressed
Differential Diagnosis Includes:
bowel obstruction, hernia,
MDM/Problems Addressed:
69 yo female w h/o colon cancer, had ileostomy diverting 2 months ago, patient states it has been working well until 4 hours ago when there was no output and she had a lot of gas and the abdominal area around the stoma has become hard and tender.
She denies fever, does feel nauseous but no vomiting.
Per Dr. Monroy text: '2 mo out from a diverting ileostomy for advanced colon can by dr. girard now with abd pain, nausea and bulge around the ostomy concerning for a parastomal hernia. please try to reduce it (will probably have to take the appliance
off)�if unable or it doesn�t seem to be the source please get a ct with po and iv contrast. place ng if she�s obstructed.'
2:55 AM
Case discussed with Dr. Alcantara he will assume care from this point.
Pt continues drinking for CT, Pain well controlled
CT abd/pelvis with PO and IV contrast pending
<Dai Bell, EXPLOSIVE ORDNANCE DISPOSAL TECHNICIAN - Last Filed: 09/03/24 17:41>
*Critical Care Note
Total Time (30-74mins, 75-104mins- exclusive of procedures): Not Applicable
ED Attending Note
<Dai Bell, EXPLOSIVE ORDNANCE DISPOSAL TECHNICIAN - Last Filed: 09/03/24 17:41>
-
Portions of this chart may have been created with voice recognition software.� Occasional wrong word or��sound alike� substitutions may have occurred due to the inherent limitations of voice recognition software.
<Yamile Alcantara, - Last Filed: 09/02/24 04:24>
ED Attending Note
Patient seen and examined by attending physician: Yes
I performed a history and physical exam of patient and discussed management with resident, I reviewed resident's note and agree with documented findings and plan of care.: Yes
ED Attending Note:
69-year-old woman with history of colon cancer, diverting ileostomy placed 2 months ago. Plan is for ileostomy removal with resection of transverse colonic mass in approximately 6 months time.
She presents with abdominal pain, nausea, upper abdominal fullness/bloating.
Pain has improved with IV Dilaudid but continues with significant nausea. Has had no vomiting. No fever.
Abdomen with moderate distention mid upper abdomen with mild tenderness generalized to the mid to upper abdomen. Mildly hyperactive bowel sounds.
White blood cell count moderately elevated, similar elevation noted previously.
CAT scan shows small bowel obstruction at ostomy site.
Will admit to hospitalist service. Will continue IV fluids, will trial an IV dose of Reglan and will plan for NG tube insertion to low intermittent suction.
I have placed a call to general surgery, awaiting callback.
Discharge Plan
Departure
Patient Disposition: Admit
Date of Disposition: 09/02/24
Time of Disposition: 04:21
Admit to doctor: Gallito
Presentation/result/management discussed w/ accepting MD/DO: Hospitalist
Condition: Fair
Discharge Problem:
Small bowel obstruction
Interventions
Interventions:
*Risk Screen - Suicide Last Done: 09/01/24 23:34
*General Assessment Last Done: 09/02/24 00:21
*Neglect/Abuse Screening Last Done: 09/02/24 00:21
*ED- Fall Risk Assessment Last Done: 09/02/24 00:21
*ED COVID-19 Vaccine History Last Done: 09/02/24 00:21
*Nursing Disposition Last Done: 09/02/24 07:55
LN-Rtfbjj-Opteldhemv Assessment Last Done: 09/02/24 00:23
Discharge Date and Time
Discharge Date/Time: 09/02/24 07:56
[2024-09-02] MEDS: NSS 500 IV (00:50)
[2024-09-02] MEDS: DILAUDID 0.5 MG IV ×6 (00:50→20:44)
[2024-09-02] MEDS: OMNIPAQUE 50 ML PO (00:51)
[2024-09-02] MEDS: ZOFRAN 4 MG IV ×2 (00:51→02:43)
[2024-09-02 01:09] LABS: ALT (SGPT) 35 U/L (0-35); AST (SGOT) 30 U/L (14-36); Albumin 3.4 g/dl (3.5-5.0); Alkaline Phosphatase 166 U/L (38-126); Blood Urea Nitrogen 8 mg/dl (7-17); Calcium 7.5 mg/dl (8.4-10.2); Carbon Dioxide 15 mmol/L (22-30); Chloride 119 mmol/L (98-107); Estimated Creatinine Clearance 72 ml/min; Glucose 137 mg/dl (70-99); Potassium 3.8 mmol/L (3.5-5.1); Sodium 142 mmol/L (135-145); Total Bilirubin 0.2 mg/dl (0.2-1.3); Total Protein 5.6 g/dl (6.3-8.2); eGFR > 60.00
[2024-09-02 01:19] LABS: Hematocrit 33.6 % (37.0-47.0); Hemoglobin 10.7 g/dL (12.0-16.0); Mean Corp Hgb Conc. 31.8 g/dL (33.0-37.0); Mean Corpuscular Hgb 32.5 pg (27.0-31.0); Mean Corpuscular Volume 102.1 fL (81.0-99.0); Mean Platelet Volume 9.8 fL (7.4-10.4); Platelet Count 276 10^3/uL (130-400); Red Blood Cell Count 3.29 10^6/uL (4.20-5.40); Red Cell Dist. Width 15.5 % (11.5-14.5); White Blood Cell Count 30.8 10^3/uL (4.8-10.8)
[2024-09-02 01:33] LABS: Lipase 91 U/L (23-300)
[2024-09-02 01:49] VITALS: BP 125/89
[2024-09-02 02:43] LABS: Absolute Neutrophils -Man Diff 29.2 10^3/uL (1.4-6.5); Band Neutrophils 4 % (0-3); Lymphocytes 4 % (20-51); Macrocytosis 3+; Monocytes 1 % (2-9); Normal RBC Morphology No; Platelets Checked Yes; Segmented Neutrophils 91 % (42-75)
[2024-09-02 02:44] LABS: Smudge Cells Occasional; Total Cells Counted 100
--- NOTE | 2024-09-02 05:05 | HPS.HSE ---
Family Physician
-
Family Physician: Amando Martinez MD
Chief Complaint
-
Abd Pain
History of Present Illness
Patient is a 69y F with PMH significant for colon cancer who presents to ED complaining of abdominal pain and nausea that started this evening. Patient states that she was feeling fairly well until around 5-6PM this evening when she developed
lower abdominal pain - medial to her ostomy site - associated with nausea. She reports no ostomy output since that time - and she generally has very high-output ostomy (averages 1.5 - 2 liters per day). She had a few episodes of dry heaves /
retching without actual emesis. Her pain persisted and she presented to the ED for further evaluation.
Patient had similar (though actually less severe) symptoms in June. She was found to have large and small bowel obstruction at that time secondary to her known colon mass. She underwent diverting ileostomy during that admission.
Patient has been on chemotherapy since her initial diagnosis in March 2024. She is on FOLFIRI with her most recent dose being 2 weeks ago. She does receive G-CSF following chemo and received her last dose of this on 08/24.
Patient states that the current plan is to hold on any further chemo for now and proceed with surgical resection of her colon mass.
Medical History
Past Medical History
Past Medical History: Reports Other
Additional Past Medical History:
Colon Cancer
Systemic Sclerosis
Hypothyroidism
Breast Cancer (Lumpectomy and Chemotherapy)
GERD
Past Surgical History: Reports Other
Additional Past Surgical History:
T&A
Rhinoplasty x 2
Cholecystectomy
Left Lumpectomy / Axillary Dissection
Gastric Bypass
Bilateral Mastectomy
Diverting Ileostomy (07/04/24)
Social History
Tobacco: Non-smoker
Alcohol: None
Drug: None
Family History
Family History: Not pertinent
Allergies / Home Medications
Allergies reflects when Allergies were last updated in [employer].
Home Medications with original date entered in [employer]
Allergy/Medication List:
Allergies
Allergy/AdvReac Type Severity Reaction Status Date / Time
SHELLEY Inhibitors Allergy Severe Anaphylaxis Verified 09/01/24 23:34
adhesive Allergy RASH FROM Verified 09/01/24 23:34
SURGICAL
TAPE
Penicillins Allergy Hives Verified 09/01/24 23:34
Home Medications
levothyroxine 25 mcg tablet 25 mcg PO DAILY 05/11/22
acetaminophen 500 mg tablet 500 mg PO Q6H PRN pain 04/21/24
famotidine 10 mg tablet 10 mg PO HS 04/21/24
tramadol 50 mg tablet 50 mg PO Q12H 04/21/24
omeprazole 20 mg tablet,delayed release 20 mg PO DAILY 04/27/24
ondansetron HCl 4 mg tablet 4 mg PO Q8H PRN nausea 07/02/24
diphenoxylate-atropine 2.5 mg-0.025 mg tablet (Lomotil) 1 tab PO DAILY 09/02/24
loperamide 1 mg/7.5 mL oral liquid (Imodium A-D) 4 mg PO TID 09/02/24
Review of Systems
-
History Source: Patient
A 12 point ROS was completed and negative except as noted: Yes
Constitutional: Reports Fatigue; Denies Fever or Chills
Respiratory: Denies Cough or Trouble Breathing
Cardiac: Denies Chest Pain or Palpitations
Abdomen/GI: Reports Abdominal Pain, Nausea and Vomiting; Denies Diarrhea or Constipated
: Denies Dysuria or Frequency
Musculoskeletal: Denies Joint Pain or Edema
Neurological: Denies Dizzy or Headache
Physical Exam
Vital Signs
Vital Signs
Temp Pulse Resp BP Pulse Ox
97.8 F 77 18 113/71 96
09/01/24 23:34 09/01/24 23:34 09/01/24 23:34 09/01/24 23:34 09/02/24 01:30
Physical Exam
General: Other (69y F in no acute distress.)
HEENT: Moist mucous membranes and PERRLA
Respiratory: Clear; No Wheezes, Rales or Rhonchi
Cardiac: S1/S2, Regular Rhythm and Murmur (II/ FARHANA)
GI: Other (Abdomen is distended, firm and diffusely tender. No appreciable bowel sounds. RLQ ostomy with no gas / stool in device.)
Musculoskeletal: No Clubbing, No Cyanosis and No Edema
Neuro: AO x 3
Laboratory Results
-
09/02/24 00:47
09/02/24 00:47
Laboratory Results
Total Bilirubin 0.2 mg/dl (0.2-1.3) 09/02/24 00:47
AST 30 U/L (14-36) 09/02/24 00:47
ALT 35 U/L (0-35) 09/02/24 00:47
Alkaline Phosphatase 166 U/L (38-126) H 09/02/24 00:47
Lipase 91 U/L (23-300) 09/02/24 00:47
Impression/Plan
-
A/P: Patient is a 69y F with PMH significant for colon cancer on chemotherapy who presents to ED complaining of abdominal pain and nausea.
SBO
- Admit for further evaluation and treatment.
- CT scan shows dilated bowel loops with apparent transition point at the RLQ ostomy site.
- No ostomy output since onset of pain around 5:30 -6PM this evening.
- Place NG tube for decompression.
- Supportive care, pain control, antiemetics, etc.
- CRS consult for further evaluation.
Colon Cancer
- On chemo for cytoreduction prior to surgery - pt states no further chemo is planned at this point due to poor response thus far.
- Imaging done today (and recent MRI from 08/22) show decrease in size of tumor from initial diagnosis - but not much change / small increase in size from June imaging.
- CRS consulted as noted above. Next step is for resection / colectomy - timing to be determined.
Leukocytosis
- Fluctuating leukocytosis noted on prior labs.
- Note that patient does receive G-CSF following chemo which likely contributes.
- No current evidence of any infectious process.
- Follow cell counts for changes.
Chronic Macrocytic Anemia
- Stable. Hgb is at / near recent baseline.
- Follow for any active bleeding or changes in H&H.
Hypothyroidism
- Stable. T4 supplementation on hold for now while NPO.
- Can start IV supplementation if patient will be NPO for prolonged period of time.
Systemic Sclerosis
- Not on any medical therapy at this time.
DVT Prophylaxis: SCDs
Code Status: No Intubation / Ventilator Support
[2024-09-02 05:23] VITALS: BP 119/81
[2024-09-02] MEDS: NSS 1000 IV (05:49)
[2024-09-02] MEDS: REGLAN 10 MG IV ×3 (05:50→20:43)
[2024-09-02 08:18] VITALS: BP 126/85; BMI 20.9
[2024-09-02] MEDS: CALCIUM GLUCONATE 100 IV (08:25)
[2024-09-02] MEDS: LR 1000 IV ×2 (08:25→17:24)
[2024-09-02] MEDS: NSS (PRESERVATIVE FREE) 10 ML IV (09:55)
[2024-09-02] MEDS: PROTONIX IV 40 MG IV (09:55)
--- NOTE | 2024-09-02 11:13 | W.PN.UPDATE ---
Update Note
Progress Note Update
Patient seen and examined after postmidnight admission. Patient reports that she has some mild to moderate abdominal pain. Vital signs stable. No acute distress, awake alert and orient x 3, appears chronically ill. Regular rate and rhythm,
normal S1-S2. Clear to auscultation bilaterally anteriorly. Hypoactive bowel sounds, soft, mild tenderness to palpation, mild distention. Cranial nerves II to XII are intact. Case discussed with Dr. Monroy. Continue 'holding pattern' for now
with NGT decompression/bowel rest. Cont IVFs/pain control.
--- NOTE | 2024-09-02 11:17 | CON.GS ---
Addendum entered and electronically signed by Josiah Monroy MD 09/11/24 12:53:
For CDI procedure purposes:
Initially there was some concern for a possible parastomal hernia however this was ruled out on CT imaging.
Addendum entered and electronically signed by Josiah Monroy MD 09/02/24 12:59:
I saw and examined the patient independently.
The Hose Finisher's note was reviewed and I agree with the note, assessment and plan except where noted below.
Comment: This is a 69-year-old female with a history of breast cancer, gastric bypass, and locally advanced colon cancer with invasion into the duodenum and pancreas on neoadjuvant chemotherapy status post loop ileostomy creation on 07/04/2024. She
presents with a new onset abdominal pain and has as well as nausea that has improved since admission. Her CT scan demonstrates a small bowel obstruction but perhaps most concerning as there is contrast in the distal colon concerning for a fistula.
NG tube placed into her gastric pouch, will get an x-ray to evaluate placement, would keep for now. Her remnant stomach does not appear grossly distended.
High white count, on Neulasta, given her benign physical exam I have no concern for bowel ischemia at this time.
Can hold off antibiotics for now.
N.p.o., IV fluids, replete electrolytes as needed.
Surgery will continue to follow, colorectal surgery to resume care on Wednesday. We will discuss possible surgical options potentially this admission though given its invasion into the duodenum and peripancreatic tissues as well as concomitant fistula
this looks like this would be of fairly large surgery to get an R0 resection.
Original Note:
Consultation
-
Date/Time Consultation Requested: 09/02/24803
Date/Time Consultation Performed: 09/02/24939
Requesting Provider: Gallito
Reason for Consultation: SBO, Colon Cancer
Medical History
-
History of Present Illness:
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
08/24) with loop ileostomy creation on 07/04/24 d/t large bowel obstruction who presented with abdominal pain and nausea through the ED yesterday. She has been following with oncology for chemotherapy with eventual surgery planned to resect the mass.
She is on antidiarrheals at home for high stoma outputs (about 1.5 to 2L a day) but noted outputs have stopped completely. She had dry heaves and retching without emesis. She noted abdominal pain medial to her ostomy site which has improved
currently. She denies fevers or chills.
Past Medical History
Past Medical History: Cancer (breast tx with chemo/xrt/left lumpectomy 2011, t4b metastatic colon cancer with invasion into duodenum/pancreas dx 03/2024 and currently on chemo), Hypothyroidism and Other (Crohn's, nephrolithiasis)
Past Surgical History: Bariatric (gastric bypass 2009), Cholecystectomy, Tonsilectomy, Urological (lithotripsy/ureteroscopy) and Other (Diverting loop ileostomy 07/04/24 (Dr. Girard), BL mastectomy 2019, abominoplasty)
Social History
Tobacco: Non-Smoker
Alcohol: None
Living: With Family
Family History
Family History: Cancer (breast: mother)
Allergies / Home Medications
Allergy/AdvReac Type Severity Reaction Status Date / Time
SHELLEY Inhibitors Allergy Severe Anaphylaxis Verified 09/01/24 23:34
adhesive Allergy RASH FROM Verified 09/01/24 23:34
SURGICAL
TAPE
Penicillins Allergy Hives Verified 09/01/24 23:34
�Medication �Instructions �Recorded �Confirmed �Type
levothyroxine 25 mcg tablet 25 mcg PO DAILY@06 Thyroid 05/11/22 09/02/24 History
acetaminophen 500 mg tablet 500 mg PO Q6H PRN pain 04/21/24 09/02/24 History
famotidine 10 mg tablet 10 mg PO HS Gastrointestinal Issue 04/21/24 09/02/24 History
tramadol 50 mg tablet 50 mg PO Q12H Pain 04/21/24 09/02/24 History
omeprazole 20 mg tablet,delayed 20 mg PO DAILY Gastrointestinal 04/27/24 09/02/24 History
release Issue
ondansetron HCl 4 mg tablet 4 mg PO Q8H PRN nausea 07/02/24 09/02/24 History
diphenoxylate-atropine 2.5 1 tab PO DAILY Diarrhea 09/02/24 09/02/24 History
mg-0.025 mg tablet (Lomotil)
loperamide 1 mg/7.5 mL oral liquid 4 mg PO TID Diarrhea 09/02/24 09/02/24 History
(Imodium A-D)
Review of Systems
-
History Source: Patient
All other systems: Negative unless noted
A 10 point review of systems was completed, and was negative except as per HPI.
Physical Exam
Vital Signs
Temp Pulse Resp BP Pulse Ox
97.6 F 87 18 126/85 97
09/02/24 08:18 09/02/24 08:18 09/02/24 08:18 09/02/24 08:18 09/02/24 08:18
09/01/24 09/02/24 09/03/24
06:59 06:59 06:59
Actual Weight 50.9 kg 53.552 kg
Body Mass Index (BMI) 20.9
Lab Results
09/02/24 00:47
09/02/24 00:47
WBC 30.8 10^3/uL (4.8-10.8) H 09/02/24 00:47
Hgb 10.7 g/dL (12.0-16.0) L 09/02/24 00:47
Hct 33.6 % (37.0-47.0) L 09/02/24 00:47
Plt Count 276 10^3/uL (130-400) 09/02/24 00:47
Physical Exam
General: Well Developed and Well Nourished
HEENT: Moist Mucous Membranes
Respiratory: Non Labored Respirations
GI: Soft, Tender (mild to mid abd) and Other (stoma pink/viable with no flatus/stool production currently. NGT with light bilious outputs)
Skin: Warm and Dry
Neuro: Awake, Alert and AO x 3
Psych: Calm
Data Reviewed
-
CT Scan: Image Personally Visualized and interpreted, Report Reviewed by me, Discussed with Physician and Discussed with Patient
Labs: Labs Reviewed by me, Discussed with Physician and Discussed with Patient
Old Records: Reviewed
Assessment / Plan
-
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
08/24) with loop ileostomy creation on 07/04/24 (Dr. Girard). d/t large bowel obstruction who presented with abdominal pain and nausea through the ED yesterday. She has been following with oncology for chemotherapy with eventual surgery planned to
resect the mass. She is on antidiarrheals at home for high stoma outputs (about 1.5 to 2L a day) but noted outputs have stopped completely. She had dry heaves and retching without emesis.
CT imaging reviewed with SB distention to the level of the ileostomy, some contrast has entered the colon possibly secondary to fistula from upper portion of GI tract. Unclear if d/t antidiarrheals causing dysmotility or SBO. NGT was placed in the
ED with some relief in symptoms although given her bypass anatomy this may be of limited motility. Mild tenderness persists.
Leukocytosis present, likely d/t g-csf and reactive to sb distention
Afebrile, VSS
--Continue NPO for bowel rest
--Hold antidiarrheals
--Will check NGT placement with CXR
--IVF as per primary team
--Analgesics/antiemetics prn
[2024-09-02 11:55] VITALS: BMI 20.9
--- NOTE | 2024-09-02 15:09 | PTCARENOTE ---
Arrived to unit with NG tube in place. Set to low intermittent suction. Patient is able to ambulate with assistance. Oriented to room. Call carpenter within reach.
[2024-09-02 15:37] VITALS: BP 112/63
[2024-09-02] MEDS: LR IV (16:29)
[2024-09-02 23:06] VITALS: BP 100/60
[2024-09-03] MEDS: LR 1000 IV ×3 (03:18→22:38)
[2024-09-03 07:45] VITALS: BP 92/49
[2024-09-03 08:01] LABS: Hematocrit 35.4 % (37.0-47.0); Hemoglobin 11.3 g/dL (12.0-16.0); Mean Corp Hgb Conc. 31.9 g/dL (33.0-37.0); Mean Corpuscular Hgb 31.7 pg (27.0-31.0); Mean Corpuscular Volume 99.4 fL (81.0-99.0); Mean Platelet Volume 9.6 fL (7.4-10.4); Platelet Count 304 10^3/uL (130-400); Red Blood Cell Count 3.56 10^6/uL (4.20-5.40); Red Cell Dist. Width 15.5 % (11.5-14.5); White Blood Cell Count 20.6 10^3/uL (4.8-10.8)
[2024-09-03] MEDS: PROTONIX IV 40 MG IV (08:01)
[2024-09-03] MEDS: NSS (PRESERVATIVE FREE) 10 ML IV (08:01)
[2024-09-03 08:20] LABS: Blood Urea Nitrogen 9 mg/dl (7-17); Calcium 8.6 mg/dl (8.4-10.2); Carbon Dioxide 25 mmol/L (22-30); Chloride 107 mmol/L (98-107); Estimated Creatinine Clearance 74 ml/min; Glucose 74 mg/dl (70-99); Potassium 4.1 mmol/L (3.5-5.1); Sodium 138 mmol/L (135-145); eGFR > 60.00
--- NOTE | 2024-09-03 08:25 | W.PN.HOSP.TC ---
Today's Communication/Plan
-
see plan
Assessment / Plan
Assessment / Plan
69y F with PMH significant for colon cancer on chemotherapy who presents to ED complaining of abdominal pain and nausea.
Gen: NAD, AAOx3.
Eyes: EOMI, PERRLA, no scleral icterus.
Neck: supple.
CV: RRR, +S1/S2, no m/r/g.
Resp: CTAB, no rales, wheezes, or rhonchi.
Abd: Hypoactive BS, soft, NT to mild palpation, ND
Skin: No rashes.
Neuro: CN 2-12 intact, non-focal.
Psych: Normal mood and affect.
CT A/P:
1. SEVERE DIFFUSE DISTENTION of SMALL BOWEL LOOPS filled with air and fecal-like material to the level of a right anterior abdominal wall loop ileostomy. Diagnostic possibilities are (1) a severe ileus or (2) a small bowel obstruction at the level
of the ostomy.
2. Interval increase in size of a LARGE 6.4 cm COLON CARCINOMA in the HEPATIC FLEXURE of the colon.
3. Small amount of ascites.
4. Previous gastric bypass surgery.
5. Small hiatal hernia and severe gastroesophageal reflux.
6. Moderate diffuse hepatic steatosis and mild hepatomegaly.
7. Previous cholecystectomy.
8. Nonobstructing right lower pole intrarenal calculi.
9. Grade 1 anterolisthesis of L4 on L5 secondary to severe facet joint arthrosis.
Acute SBO:
-surgery following
-cont NGT to low intermittent suction
-cont IVFs/pain control/antiemetics
-case discussed with Dr. Monroy. ADRIAN to determine definitive plan tomorrow.
Colon Cancer
- On chemo for cytoreduction prior to surgery - pt states no further chemo is planned at this point due to poor response thus far.
- Imaging done on admission (and recent MRI from 08/22) show decrease in size of tumor from initial diagnosis - but not much change / small increase in size from June imaging.
- CRS consulted as noted above. Next step is for resection / colectomy - timing to be determined.
Leukocytosis:
-likely due to G-CSF given following chemo
-no evidence of acute infection at this time
-discussed with surgery on 09/02/24, no abx indicated from their standpoint
Other problems:
Chronic Macrocytic Anemia: Hb stable
Hypothyroidism: start IV Synthroid on 09/05/24 if pt remains NPO
Systemic Sclerosis: Not on any medical therapy at this time.
Limited DNR/SCDs
Anticipated Discharge: > 48 hours
Subjective/Interval History
-
Date of Service: September 03, 2024
Patient states abdominal pain has nearly resolved. She is having ostomy output.
Objective Data
-
Labs:
Laboratory Results
09/03/24
06:45
WBC 20.6 H
Hgb 11.3 L
Hct 35.4 L
Plt Count 304
Sodium 138
Potassium 4.1
Chloride 107
Carbon Dioxide 25
BUN 9
Creatinine 0.5 L
Glucose 74
Calcium 8.6
Vital Signs:
Vital Signs
Temp Pulse Resp BP Pulse Ox
98.1 F 77 16 100/60 94
09/02/24 23:06 09/02/24 23:06 09/02/24 23:06 09/02/24 23:06 09/02/24 23:06
I&O
09/02/24 09/03/24 09/04/24
06:59 06:59 06:59
Intake Total 120 / 120
Output Total 925 / 925
Balance -805 / -805
--- NOTE | 2024-09-03 09:40 | W.PN.CRS1 ---
Today's Communication / Plan
-
Continue NG tube to low intermittent wall suction
N.p.o., IV fluids, replete electrolytes as needed.
DVT prophylaxis, antiemetics, pain control.
Colorectal surgery to resume care tomorrow morning. Will discuss surgical options and timing.
Assessment/Plan
-
This is a 69-year-old female with a history of breast cancer, gastric bypass, and locally advanced colon cancer with invasion into the duodenum and pancreas on neoadjuvant chemotherapy status post loop ileostomy creation on 07/04/2024. She presents
with a new onset abdominal pain and has as well as nausea that has improved since admission. Her CT scan demonstrates a small bowel obstruction but perhaps most concerning as there is contrast in the distal colon concerning for a possible fistula.
Though her small bowel obstruction appears to be resolving her NG tube output still remains bilious so would keep another day.
Continue NG tube to low intermittent wall suction
N.p.o., IV fluids, replete electrolytes as needed.
DVT prophylaxis, antiemetics, pain control.
Colorectal surgery to resume care tomorrow morning. Will discuss surgical options and timing.
Subjective Data
Procedure
Diverting loop ileostomy
Subjective Data
Date of Service: September 03, 2024
Interval Events:
No acute events overnight. Slept well. Pain Controlled. Denies Nausea/Vomiting, +bowel function. Tolerating diet.
Objective Data
-
Vital Signs
Temp Pulse Resp BP Pulse Ox
98.4 F 78 16 92/49 95
09/03/24 07:45 09/03/24 07:45 09/03/24 07:45 09/03/24 07:45 09/03/24 07:45
Intake & Output
09/02/24 09/03/24 09/04/24
06:59 06:59 06:59
Intake Total 120 / 120
Output Total 925 / 925
Balance -805 / -805
Intake:
Amount instilled into GI Tube ( 120 / 120
Total)
[place] Sump 120 / 120
Output:
Liquid stool amount 525 / 525
Ileostomy 525 / 525
Gastrointestinal tube output ( 400 / 400
Total)
[place] Sump 400 / 400
Other:
Number of approximated MODERATE 1
amounts of urine
Lab Results
09/03/24 06:45
09/03/24 06:45
Physical Exam
-
General: No Acute Distress
Abdomen: Soft, Distended (Mildly distended), Non Tender and Other (Ostomy is pink patent and productive)
[2024-09-03] MEDS: LOVENOX 40 MG SC (09:54)
[2024-09-03] MEDS: DILAUDID 0.5 MG IV (13:29)
[2024-09-03 15:45] VITALS: BP 98/66
[2024-09-03] MEDS: CHLORASEPTIC/SORE THROAT SPRAY 1 SPRAY PO (20:38)
[2024-09-03] MEDS: OFIRMEV 100 IV (21:21)
[2024-09-03 23:17] VITALS: BP 108/54
[2024-09-04] MEDS: CHLORASEPTIC/SORE THROAT SPRAY 1 SPRAY PO ×2 (03:29→06:29)
[2024-09-04] MEDS: DILAUDID 0.5 MG IV (04:53)
[2024-09-04 07:35] VITALS: BP 128/71
[2024-09-04] MEDS: PROTONIX IV 40 MG IV (08:11)
[2024-09-04] MEDS: NSS (PRESERVATIVE FREE) 10 ML IV (08:11)
[2024-09-04] MEDS: LOVENOX 40 MG SC (08:12)
--- NOTE | 2024-09-04 08:23 | VNURNOTE ---
Chart reviewed. Patient is current with [facility] nursing. Will continue to follow hospital course and DC plans.
[2024-09-04] MEDS: LR 1000 IV ×2 (08:57→20:15)
--- NOTE | 2024-09-04 09:24 | W.PN.CRS1 ---
Today's Communication / Plan
-
ngt clamping trial
Assessment/Plan
-
This is a 69-year-old female with a history of breast cancer, gastric bypass, and locally advanced colon cancer with invasion into the duodenum and pancreas on neoadjuvant chemotherapy status post loop ileostomy creation on 07/04/2024. She presents
with a new onset abdominal pain and has as well as nausea that has improved since admission. Her CT scan demonstrates a small bowel obstruction but perhaps most concerning as there is contrast in the distal colon concerning for a possible fistula.
No labs today
Vitals normal
- NGT clamping trial today. If removed, remain NPO.
-OOB as tolerated
-N.p.o., IV fluids, replete electrolytes as needed.
-DVT prophylaxis, antiemetics, pain control.
-No plans for surgery at this time
Subjective Data
Procedure
Diverting loop ileostomy
Subjective Data
Date of Service: September 04, 2024
Patient states she is not in that much pain. She denies nausea or vomiting. She is asking for the ngt to be removed.
Objective Data
-
Vital Signs
Temp Pulse Resp BP Pulse Ox
98.3 F 81 18 128/71 97
09/04/24 07:35 09/04/24 07:35 09/04/24 07:35 09/04/24 07:35 09/04/24 07:35
Intake & Output
09/03/24 09/04/24 09/05/24
06:59 06:59 06:59
Intake Total 120 / 120 90 / 90
Output Total 925 / 925 950 / 950
Balance -805 / -805 -860 / -860
Intake:
Amount instilled into GI Tube ( 120 / 120 90 / 90
Total)
[place] Sump 120 / 120 90 / 90
Output:
Liquid stool amount 525 / 525 350 / 350
Ileostomy 525 / 525 350 / 350
Gastrointestinal tube output ( 400 / 400 600 / 600
Total)
[place] Sump 400 / 400 600 / 600
Other:
Number of approximated MODERATE 1 2
amounts of urine
Lab Results
09/03/24 06:45
09/03/24 06:45
Physical Exam
-
General: No Acute Distress and AOx3
Abdomen: Soft, Non Distended and Non Tender
Skin: Warm and Dry
--- NOTE | 2024-09-04 13:36 | W.PN.HOSP.TC ---
Today's Communication/Plan
-
Clamping trial
Res tof care per Surgical service
Assessment / Plan
Assessment / Plan
69y F with PMH significant for colon cancer on chemotherapy who presents to ED complaining of abdominal pain and nausea.
Gen: NAD, AAOx3.
Eyes: EOMI, PERRLA, no scleral icterus.
Neck: supple.
CV: RRR, +S1/S2, no m/r/g.
Resp: CTAB, no rales, wheezes, or rhonchi.
Abd: Hypoactive BS, soft, NT to mild palpation, ND
Skin: No rashes.
Neuro: CN 2-12 intact, non-focal.
Psych: Normal mood and affect.
CT A/P:
1. SEVERE DIFFUSE DISTENTION of SMALL BOWEL LOOPS filled with air and fecal-like material to the level of a right anterior abdominal wall loop ileostomy. Diagnostic possibilities are (1) a severe ileus or (2) a small bowel obstruction at the level
of the ostomy.
2. Interval increase in size of a LARGE 6.4 cm COLON CARCINOMA in the HEPATIC FLEXURE of the colon.
3. Small amount of ascites.
4. Previous gastric bypass surgery.
5. Small hiatal hernia and severe gastroesophageal reflux.
6. Moderate diffuse hepatic steatosis and mild hepatomegaly.
7. Previous cholecystectomy.
8. Nonobstructing right lower pole intrarenal calculi.
9. Grade 1 anterolisthesis of L4 on L5 secondary to severe facet joint arthrosis.
Acute SBO:
-surgery following
-Clamping trial of NGT;
-cont IVFs/pain control/antiemetics
-Care as per CRS
Colon Cancer
- On chemo for cytoreduction prior to surgery - pt states no further chemo is planned at this point due to poor response thus far.
- Imaging done on admission (and recent MRI from 08/22) show decrease in size of tumor from initial diagnosis - but not much change / small increase in size from June imaging.
- CRS consulted as noted above. Next step is for resection / colectomy - timing to be determined.
Leukocytosis:
-likely due to G-CSF given following chemo
-no evidence of acute infection at this time
-discussed with surgery on 09/02/24, no abx indicated from their standpoint
Other problems:
Chronic Macrocytic Anemia: Hb stable
Hypothyroidism: start IV Synthroid on 09/05/24 if pt remains NPO
Systemic Sclerosis: Not on any medical therapy at this time.
Limited DNR/SCDs
Will transfer patient to CRS service under Dr. Zhong
Please feel free to re-engage if any further questions/concerns.
Anticipated Discharge: > 48 hours
Subjective/Interval History
-
Date of Service: September 04, 2024
Ostomy beginning to function
Abd soft, nontender
Objective Data
-
Vital Signs:
Vital Signs
Temp Pulse Resp BP Pulse Ox
98.3 F 81 18 128/71 97
09/04/24 07:35 09/04/24 07:35 09/04/24 07:35 09/04/24 07:35 09/04/24 07:35
I&O
09/03/24 09/04/24 09/05/24
06:59 06:59 06:59
Intake Total 120 / 120 90 / 90
Output Total 925 / 925 950 / 950
Balance -805 / -805 -860 / -860
Review of Systems
-
History Source: Patient
All other systems: Not reviewed unless documented
Data Reviewed
-
Diagnostic Radiology: Report Reviewed by me
CT Scan: Report Reviewed by me
Labs: Labs Reviewed by me
[2024-09-04 15:36] VITALS: BP 114/65
[2024-09-04] MEDS: OFIRMEV 100 IV ×2 (15:56→22:21)
--- NOTE | 2024-09-04 16:48 | CM ---
Alert awake oriented patient who lives with her spouse Dot who lives in 2 story home with 0 steps to enter and 16 steps to bed and bathroom..
She is independent in driving and in all activities of daily living.Offered VN she requested resuming [facility] Emily liaison.
ileostomy supplies
VN VN/ No SNF
Pharmacy [facility]
PCP Dr Martinez
PLAN Home with [facility]
[2024-09-04] MEDS: FLUSH (NSS) 2 FLUSH IV (22:27)
[2024-09-04 23:37] VITALS: BP 104/56
[2024-09-05] MEDS: OFIRMEV 100 IV (04:37)
[2024-09-05] MEDS: FLUSH (NSS) 2 FLUSH IV (04:38)
[2024-09-05] MEDS: LR 1000 IV ×2 (06:29→16:24)
[2024-09-05 07:25] VITALS: BP 113/62
[2024-09-05 08:22] LABS: % Basophils 0.9 % (0-2); % Eosinophils 0.5 % (0-6); % Immature Granulocytes 4.2 % (0-0.5); % Lymphocytes 4.6 % (20.5-51.1); % Monocytes 6.1 % (1.7-9.3); % Neutrophils 83.7 % (42.2-75.2); Absolute Basophils 0.2 10^3/uL (0-0.2); Absolute Eosinophils 0.1 10^3/uL (0-0.7); Absolute Immature Granulocytes 0.8 10^3/uL (0-0.05); Absolute Lymphocytes 0.9 10^3/uL (1.2-3.4); Absolute Monocytes 1.2 10^3/uL (0.1-0.6); Absolute Neutrophils 16.5 10^3/uL (1.4-6.5); Hemoglobin 11.7 g/dL (12.0-16.0); Mean Corp Hgb Conc. 31.6 g/dL (33.0-37.0); Mean Corpuscular Hgb 31.9 pg (27.0-31.0); Mean Corpuscular Volume 100.8 fL (81.0-99.0); Mean Platelet Volume 9.3 fL (7.4-10.4); Nucleated Red Blood Cells % 0 %; Platelet Count 289 10^3/uL (130-400); Red Blood Cell Count 3.67 10^6/uL (4.20-5.40); Red Cell Dist. Width 15.2 % (11.5-14.5); White Blood Cell Count 19.7 10^3/uL (4.8-10.8)
[2024-09-05] MEDS: PROTONIX IV 40 MG IV (08:26)
[2024-09-05] MEDS: LOVENOX 40 MG SC (08:26)
[2024-09-05] MEDS: NSS (PRESERVATIVE FREE) 10 ML IV (08:26)
--- NOTE | 2024-09-05 08:39 | PN.CDI ---
CDI
- -
CDI:
Physician Documentation Request
Admit Date: 09/02/24 05:37
Dear Doctor Porfirio,
Patient admitted for small bowel obstruction.
ER Physician Documentation: 'there was no output and she had a lot of gas and the abdominal area around the stoma has become hard and tender...abd pain, nausea and bulge around the ostomy concerning for a parastomal hernia.please try to reduce it
(will probably have to take the appliance off)'
Please clarify the following:
____ - Parastomal hernia was present on admission and is now resolved.
____ - Parastomal hernia was present on admission and is still being monitored, evaluated or treated
____ - Parastomal hernia was ruled out
____ - Parastomal hernia is still a likely, suspected, probable diagnosis
____ - Other
____ - Unable to determine
Use of terms such as suspected, likely, concern for, or probable (associated with a specific diagnosis that is being evaluated, monitored, or treated as if it exists) are acceptable and can be coded in the inpatient setting, when documented at the
time of discharge.
Thank you,
Georgia Johnson RN, BSN
CDI Specialist
Available via [employer] text
Please use your independent medical judgment in providing your response.
[2024-09-05] MEDS: OFIRMEV IV (08:46)
[2024-09-05 09:14] LABS: Blood Urea Nitrogen 4 mg/dl (7-17); Calcium 8.3 mg/dl (8.4-10.2); Carbon Dioxide 14 mmol/L (22-30); Chloride 108 mmol/L (98-107); Estimated Creatinine Clearance 74 ml/min; Glucose 50 mg/dl (70-99); Potassium 3.6 mmol/L (3.5-5.1); Sodium 140 mmol/L (135-145); eGFR > 60.00
[2024-09-05 12:04] LABS: Blood Urea Nitrogen 3 mg/dl (7-17); Calcium 8.5 mg/dl (8.4-10.2); Carbon Dioxide 16 mmol/L (22-30); Chloride 109 mmol/L (98-107); Estimated Creatinine Clearance 74 ml/min; Glucose 113 mg/dl (70-99); Potassium 3.9 mmol/L (3.5-5.1); Sodium 138 mmol/L (135-145); eGFR > 60.00
--- NOTE | 2024-09-05 12:54 | W.PN.CRS1 ---
Today's Communication / Plan
-
clears
Assessment/Plan
-
This is a 69-year-old female with a history of breast cancer, gastric bypass, and locally advanced colon cancer with invasion into the duodenum and pancreas on neoadjuvant chemotherapy status post loop ileostomy creation on 07/04/2024. She presents
with a new onset abdominal pain and has as well as nausea that has improved since admission. Her CT scan demonstrates a small bowel obstruction but perhaps most concerning as there is contrast in the distal colon concerning for a possible fistula.
Glucose: 50, repeat 113
Hgb 11.7
Vitals normal
NGT removed on 09/04/24
-Advance to clears
-OOB as tolerated
-Continue IV fluids, replete electrolytes as needed.
-DVT prophylaxis, antiemetics, pain control.
-No plans for surgery at this time
Subjective Data
Procedure
Diverting loop ileostomy
Subjective Data
Date of Service: September 05, 2024
Patient states she feels much better. She is not in any pain today. She has bowel function in her ileostomy. She has been walking the halls.
Objective Data
-
Vital Signs
Temp Pulse Resp BP Pulse Ox
98.0 F 66 18 113/62 97
09/05/24 07:25 09/05/24 07:25 09/05/24 07:25 09/05/24 07:25 09/05/24 07:25
Intake & Output
09/04/24 09/05/24 09/06/24
06:59 06:59 06:59
Intake Total 90 / 90 1350 / 1350
Output Total 950 / 950 150 / 150 500 / 500
Balance -860 / -860 1200 / 1200 -500 / -500
Intake:
IV fluids (Total) 1150 / 1150
IV piggybacks 200 / 200
Amount instilled into GI Tube ( 90 /
Total)
Fonda Sump 90 / 90
Output:
Liquid stool amount 350 / 350 150 / 150 500 / 500
Ileostomy 350 / 350 150 / 150 500 / 500
Gastrointestinal tube output ( 600 / 600
Total)
Fonda Sump 600 / 600
Other:
Number of approximated MODERATE 2 1
amounts of urine
Lab Results
09/05/24 08:06
09/05/24 11:29
Physical Exam
-
General: No Acute Distress and AOx3
Abdomen: Soft, Non Distended and Non Tender
Skin: Warm and Dry
[2024-09-05 15:19] VITALS: BP 114/67
[2024-09-05 23:32] VITALS: BP 106/55
[2024-09-06] MEDS: LR 1000 IV ×2 (01:07→10:53)
[2024-09-06 06:34] LABS: % Basophils 0.9 % (0-2); % Eosinophils 0.7 % (0-6); % Immature Granulocytes 4.8 % (0-0.5); % Lymphocytes 4.7 % (20.5-51.1); % Monocytes 5.9 % (1.7-9.3); Absolute Basophils 0.2 10^3/uL (0-0.2); Absolute Eosinophils 0.1 10^3/uL (0-0.7); Absolute Immature Granulocytes 0.9 10^3/uL (0-0.05); Absolute Lymphocytes 0.9 10^3/uL (1.2-3.4); Absolute Monocytes 1.1 10^3/uL (0.1-0.6); Absolute Neutrophils 15.1 10^3/uL (1.4-6.5); Hematocrit 34.2 % (37.0-47.0); Hemoglobin 10.9 g/dL (12.0-16.0); Mean Corp Hgb Conc. 31.9 g/dL (33.0-37.0); Mean Corpuscular Hgb 31.7 pg (27.0-31.0); Mean Corpuscular Volume 99.4 fL (81.0-99.0); Mean Platelet Volume 9.5 fL (7.4-10.4); Nucleated Red Blood Cells % 0 %; Platelet Count 293 10^3/uL (130-400); Red Blood Cell Count 3.44 10^6/uL (4.20-5.40); Red Cell Dist. Width 15.1 % (11.5-14.5); White Blood Cell Count 18.2 10^3/uL (4.8-10.8)
[2024-09-06 07:01] LABS: Blood Urea Nitrogen < 2 mg/dl (7-17); Calcium 8.3 mg/dl (8.4-10.2); Carbon Dioxide 23 mmol/L (22-30); Chloride 110 mmol/L (98-107); Estimated Creatinine Clearance 74 ml/min; Glucose 82 mg/dl (70-99); Potassium 3.5 mmol/L (3.5-5.1); Sodium 141 mmol/L (135-145); eGFR > 60.00
[2024-09-06 08:38] VITALS: BP 117/70
[2024-09-06] MEDS: PROTONIX IV 40 MG IV (09:03)
[2024-09-06] MEDS: LOVENOX 40 MG SC (09:03)
[2024-09-06] MEDS: NSS (PRESERVATIVE FREE) 10 ML IV (09:04)
--- NOTE | 2024-09-06 09:17 | W.PN.CRS1 ---
Today's Communication / Plan
-
full liquids to low residue
possible d/c later
Assessment/Plan
-
This is a 69-year-old female with a history of breast cancer, gastric bypass, and locally advanced colon cancer with invasion into the duodenum and pancreas on neoadjuvant chemotherapy status post loop ileostomy creation on 07/04/2024. She presents
with a new onset abdominal pain and has as well as nausea that has improved since admission.
WBC 18.2 (19.7), Hgb 10.9
Vitals normal
NGT removed on 09/04/24
-Advance to fulls then low residue if tolerates for dinner
-OOB as tolerated
-Continue IV fluids, replete electrolytes as needed.
-DVT prophylaxis, antiemetics, pain control.
-No plans for surgery at this time
-Possible d/c later today if she is feeling well and tolerating a diet
Subjective Data
Procedure
Diverting loop ileostomy
Subjective Data
Date of Service: September 06, 2024
Patient states she has some mild tenderness but feels much improved. She has no nausea or vomiting. Passing flatus. There is function in her bag.
Objective Data
-
Vital Signs
Temp Pulse Resp BP Pulse Ox
98.2 F 66 18 117/70 97
09/06/24 08:38 09/06/24 08:38 09/06/24 08:38 09/06/24 08:38 09/06/24 08:38
Intake & Output
09/05/24 09/06/24 09/07/24
06:59 06:59 06:59
Intake Total 1350 / 1350 2300 / 2300
Output Total 150 / 150 1850 / 1850
Balance 1200 / 1200 450 / 450
Intake:
Oral fluids 1200 / 1200
IV fluids (Total) 1150 / 1150 1100 / 1100
IV piggybacks 200 / 200
Output:
Liquid stool amount 150 / 150 1849
Ileostomy 150 / 150 1849
Other:
Number of approximated MODERATE 1 4
amounts of urine
Lab Results
09/06/24 06:07
09/06/24 06:07
Physical Exam
-
General: No Acute Distress and AOx3
Abdomen: Soft, Non Distended, Non Tender and Other (ileostomy warm and pink with function)
Skin: Warm and Dry
--- NOTE | 2024-09-06 15:12 | CM ---
Patient seen at bedside on . Patient for discharge today. Patient for follow up with [facility] and CM reviewed IMM. Signed form placed on chart. CM will continue to follow for discharge planning needs.
Plan; home with [facility] to follow.
[2024-09-06 15:13] VITALS: BP 121/69
== END 2024-09-06 15:31 | disposition home health service (06) | DRG 389 ==
LOC: 4 EAST ACU 05:37
PROVIDERS: Physician Assistant; Registered Nurse; ADMITTING PHYSICIAN Hospitalist; ATTENDING PHYSICIAN Surgery; EMERGENCY PHYSICIAN Emergency Medicine; FAMILY PHYSICIAN Family Medicine; OTHER PHYSICIAN Surgery
DX: K56.609 Unspecified intestinal obstruction, unspecified as to partial versus complete obstruction (principal); C18.9 Malignant neoplasm of colon, unspecified; K50.912 Crohn's disease, unspecified, with intestinal obstruction; Z66 Do not resuscitate; D53.9 Nutritional anemia, unspecified; E03.9 Hypothyroidism, unspecified; M34.9 Systemic sclerosis, unspecified
CPT/HCPCS: 43752; 71045; 74177; 80048; 80053; 83690; 85025; 85027; 96361; 96374; 96375; 96376; 99285; Q9967

== ENCOUNTER → 2024-09-13 07:05 | Outpatient (REF) | payer MEDICARE, SELFPAY ==
[2024-09-13 09:03] LABS: Blood Urea Nitrogen 10 mg/dl (7-17); Calcium 8.7 mg/dl (8.4-10.2); Carbon Dioxide 24 mmol/L (22-30); Chloride 109 mmol/L (98-107); Glucose 71 mg/dl (70-99); Magnesium 2.1 mg/dl (1.6-2.3); Sodium 139 mmol/L (135-145); eGFR > 60.00
[2024-09-13 13:16] LABS: CEA 1.82 ng/ml
== END ==
LOC: RAD 07:05
PROVIDERS: ATTENDING PHYSICIAN Surgery; FAMILY PHYSICIAN Family Medicine
DX: C18.3 Malignant neoplasm of hepatic flexure (principal); K94.10 Enterostomy complication, unspecified
CPT/HCPCS: 36415; 71260; 80048; 82378; 83735; Q9967

== ENCOUNTER → 2024-09-27 11:57 | Outpatient (REF) | payer MEDICARE, SELFPAY ==
[2024-09-27 13:20] LABS: % Basophils 0.6 % (0-2); % Eosinophils 1.3 % (0-6); % Immature Granulocytes 0.5 % (0-0.5); % Lymphocytes 7.1 % (20.5-51.1); % Monocytes 5.8 % (1.7-9.3); % Neutrophils 84.7 % (42.2-75.2); Absolute Basophils 0.1 10^3/uL (0-0.2); Absolute Eosinophils 0.1 10^3/uL (0-0.7); Absolute Immature Granulocytes 0.1 10^3/uL (0-0.05); Absolute Lymphocytes 0.8 10^3/uL (1.2-3.4); Absolute Monocytes 0.6 10^3/uL (0.1-0.6); Absolute Neutrophils 9.3 10^3/uL (1.4-6.5); Hematocrit 34.9 % (37.0-47.0); Mean Corp Hgb Conc. 31.5 g/dL (33.0-37.0); Mean Corpuscular Hgb 31.7 pg (27.0-31.0); Mean Corpuscular Volume 100.6 fL (81.0-99.0); Mean Platelet Volume 10.1 fL (7.4-10.4); Nucleated Red Blood Cells % 0 %; Platelet Count 396 10^3/uL (130-400); Red Blood Cell Count 3.47 10^6/uL (4.20-5.40); Red Cell Dist. Width 15.1 % (11.5-14.5)
[2024-09-27 13:52] LABS: ALT (SGPT) 120 U/L (0-35); AST (SGOT) 75 U/L (14-36); Albumin 4.1 g/dl (3.5-5.0); Alkaline Phosphatase 177 U/L (38-126); Blood Urea Nitrogen 16 mg/dl (7-17); Calcium 9.1 mg/dl (8.4-10.2); Carbon Dioxide 24 mmol/L (22-30); Chloride 109 mmol/L (98-107); Glucose 92 mg/dl (70-99); Iron 36 ug/dl (37-170); Sodium 141 mmol/L (135-145); Total Bilirubin 0.3 mg/dl (0.2-1.3); Total Protein 6.7 g/dl (6.3-8.2); eGFR > 60.00
[2024-09-27 14:01] LABS: Percent Saturation 9 % (20-50); Total Iron Binding Capacity 368 ug/dl (265-497)
[2024-09-27 14:28] LABS: Ferritin 60.9 ng/ml (11.1-264.0)
[2024-09-27 14:36] LABS: Urine Albumin 1+ (Neg - Trace); Urine Bilirubin Negative (Negative); Urine Character Clear (Clear); Urine Color Yellow; Urine Glucose Negative (Negative); Urine Ketone Negative (Negative); Urine Leukocyte Negative (Negative); Urine Nitrite Negative (Negative); Urine Occult Blood 4+ (Negative); Urine Urobilinogen Negative (Neg - 1+)
[2024-09-27 14:44] LABS: Erythrocyte Sed Rate 46 mm/hour (0-20)
[2024-09-27 14:59] LABS: Urine Red Blood Cell >100 /HPF (0-2)
[2024-09-27 15:00] LABS: Urine White Cell 0-2 /HPF (0-5)
[2024-09-27 15:02] LABS: Urine Bacteria Few (Negative); Urine Mucus Few
[2024-09-27 15:29] LABS: Urine Protein < 5 mg/dl
== END ==
LOC: REG 11:57
PROVIDERS: ATTENDING PHYSICIAN Internal Medicine; FAMILY PHYSICIAN Family Medicine
DX: M34.9 Systemic sclerosis, unspecified (principal); K50.90 Crohn's disease, unspecified, without complications
CPT/HCPCS: 36415; 80053; 81003; 81015; 82570; 82728; 83540; 83550; 84156; 85025; 85652; 86140

== ENCOUNTER 2024-10-29 20:10 | Inpatient (IN) | payer MEDICARE, SELFPAY ==
[2024-10-29] VITALS (7 sets, daily range): BP systolic 102–126; BP diastolic 57–78; BMI 20.4; BMI 19.9
[2024-10-29 14:46] LABS: Hematocrit 34.0 % (37.0-47.0); Hemoglobin 10.6 g/dL (12.0-16.0); Mean Corp Hgb Conc. 31.2 g/dL (33.0-37.0); Mean Corpuscular Volume 93.7 fL (81.0-99.0); Platelet Count 774 10^3/uL (130-400); Red Cell Dist. Width 15.2 % (11.5-14.5)
[2024-10-29 14:47] LABS: Nucleated Red Blood Cells % 0 %
[2024-10-29 14:52] LABS: ALT (SGPT) 16 U/L (0-35); AST (SGOT) 25 U/L (14-36); Albumin 3.9 g/dl (3.5-5.0); Alkaline Phosphatase 121 U/L (38-126); Blood Urea Nitrogen 12 mg/dl (7-17); Calcium 8.7 mg/dl (8.4-10.2); Carbon Dioxide 23 mmol/L (22-30); Chloride 104 mmol/L (98-107); Glucose 146 mg/dl (70-99); Lipase 161 U/L (23-300); Potassium 4.5 mmol/L (3.5-5.1); Sodium 134 mmol/L (135-145); Total Protein 7.0 g/dl (6.3-8.2); eGFR > 60.00
--- NOTE | 2024-10-29 16:38 | ED.GENMED ---
History of Present Illness
General
Chief Complaint: Abdominal Pain
Source: patient
Exam Limitations: none
Time Seen by Provider: 10/29/24 16:16
History of Present Illness
History of Present Illness:
69-year-old female with stage IV colon cancer status post ileostomy presents complaining of severe unrelenting pain. She takes Dilaudid and her oncologist was advising her to increase it. She has been using 2 mg of oral Dilaudid every 2 hours but
notes severe pain to the mid abdomen. On the 15 of this month, she was seen at [facility] for a planned surgical excision of her transverse colon tumor however when they opened her they realized the cancer had spread significantly
even into the pelvis and the peritoneum. They did not provide any excisions in the close throughout. Her postsurgical pain is resolved however she notes increased pain currently. She denies any vomiting. She has a history of the bowel
obstruction however this feels different. She does note output through her ostomy. No fevers. No other
Past History
Past History
ED Past Medical History: None
ED Past Surgical History: None
Phy Exam
Physical Exam
Physical Exam:
General: Well-appearing female no acute respiratory distress
HEENT normocephalic atraumatic
Heart: Regular rate and rhythm
Lungs: Clear no wheeze
Abdomen ostomy present with output in bag. There is tenderness and guarding noted to palpation over the right abdomen
Extremities: No cyanosis
Course
Orders/Labs/Results
Orders:
Orders
10/29/24
Complete Blood Count/With Diff Urgent
Comprehensive Metabolic Panel Urgent
Lipase Urgent
10/29/24 16:36
CT Abd/pelvis W Iv Cont Urgent
Comment:
Reason For Exam: abdominal pain
HYDROmorphone [Dilaudid] 1 mg IV NOW STA
Ondansetron Injectable [Zofran] 4 mg IV NOW STA
10/29/24 19:03
HYDROmorphone [Dilaudid] 1 mg IV NOW STA
Abnormal Lab Results
10/29/24
Unknown
WBC 18.7 H 10^3/uL
(4.8-10.8)
RBC 3.63 L 10^6/uL
(4.20-5.40)
Hgb 10.6 L g/dL
(12.0-16.0)
Hct 34.0 L %
(37.0-47.0)
MCHC 31.2 L g/dL
(33.0-37.0)
RDW 15.2 H %
(11.5-14.5)
Plt Count 774 H 10^3/uL
(130-400)
Abs Immat Gran (auto) 0.1 H 10^3/uL
(0-0.05)
Absolute Neuts (auto) 16.1 H 10^3/uL
(1.4-6.5)
Absolute Lymphs (auto) 0.9 L 10^3/uL
(1.2-3.4)
Absolute Monos (auto) 1.4 H 10^3/uL
(0.1-0.6)
Neutrophils % 86.3 H %
(42.2-75.2)
Lymphocytes % 4.6 L %
(20.5-51.1)
Sodium 134 L mmol/L
(135-145)
Creatinine 0.5 L mg/dL
(0.6-1.0)
Glucose 146 H mg/dl
(70-99)
10/29/24 Unknown
10/29/24 Unknown
Vital Signs
Initial and Last Documented VS:
Initial Vital Signs
Temp Pulse Resp BP Pulse Ox
99.5 F 118 16 104/70 99
10/29/24 14:03 10/29/24 14:03 10/29/24 14:03 10/29/24 14:03 10/29/24 14:03
Last Documented Vital Signs
Temp Pulse Resp BP Pulse Ox
99.5 F 118 16 108/60 97
10/29/24 14:03 10/29/24 14:03 10/29/24 14:03 10/29/24 19:00 10/29/24 19:01
MDM/Problems Addressed
Differential Diagnosis Includes:
Patient with severe abdominal pain but does note output in her ostomy. Consider progression of underlying cancer versus perforation versus bowel obstruction
Patient has an appointment with palliative care on the november.
Despite increased pain medication at home, pain is still severe. Vascular access team consulted for port access. Will treat pain. CT pending will likely need admission secondary to intractable pain
*Pulse Oximetry
SaO2: 97
Oxygen Mode of Delivery: Room air
Patient hypoxic: no
*Critical Care Note
Total Time (30-74mins, 75-104mins- exclusive of procedures): Not Applicable
Update Note
Update Note:
CT without signs of perforation. Reconfirms the presence of known hepatic flexure mass. Patient with minimal relief with first dose of IV medicine. Will give another dose but given failure to control pain at home increasing her home medications
will admit to hospital for intractable abdominal pain.
ED Attending Note
-
Portions of this chart may have been created with voice recognition software.� Occasional wrong word or��sound alike� substitutions may have occurred due to the inherent limitations of voice recognition software.
Discharge Plan
Departure
Patient Disposition: Admit
Date of Disposition: 10/29/24
Time of Disposition: 19:07
Presentation/result/management discussed w/ accepting MD/DO: Hospitalist
Discharge Problem:
Abdominal pain
Prescriptions:
No Action
levothyroxine 25 mcg Tablet
25 mcg PO DAILY@06
famotidine 10 mg Tablet
10 mg PO HS
tramadol 50 mg Tablet
50 mg PO Q12H
acetaminophen 500 mg Tablet
500 mg PO Q6H PRN (Reason: pain)
omeprazole 20 mg Tablet,Delayed Release (Dr/Ec)
20 mg PO DAILY
ondansetron HCl 4 mg Tablet
4 mg PO Q8H PRN (Reason: nausea)
diphenoxylate-atropine [Lomotil] 2.5-0.025 mg Tablet
1 tab PO DAILY
loperamide [Imodium A-D] 1 mg/7.5 mL Liquid
4 mg PO TID
Referrals:
Amando Martinez MD [Family Provider, Family Practice]
Interventions
Interventions:
*Risk Screen - Suicide Last Done: 10/29/24 14:05
*General Assessment Last Done: 10/29/24 15:55
*Neglect/Abuse Screening Last Done: 10/29/24 14:05
*ED- Fall Risk Assessment Last Done: 10/29/24 15:55
*ED COVID-19 Vaccine History Last Done: 10/29/24 15:55
RV-Qdlbam-Vkuibpjadl Assessment Last Done: 10/29/24 15:55
Discharge Date and Time
Print Language: YORUBA
[2024-10-29] MEDS: ZOFRAN 4 MG IV (16:55)
[2024-10-29] MEDS: DILAUDID 1 MG IV ×3 (16:56→22:22)
--- NOTE | 2024-10-29 19:56 | HPS.HSE ---
Family Physician
-
Family Physician: Amando Martinez MD
Chief Complaint
-
Abd Pain
History of Present Illness
Patient is a 69y F with PMH significant for colon cancer who presents to ED complaining of abdominal pain. Patient has known colon cancer and as last admitted here in September for increased pain and bowel obstruction. Patient notes that she was
seen at [place] on 10/17 for planned ileostomy reversal and colon resection. Unfortunately, patient was noted to have diffuse peritoneal metastases during laparotomy and procedure was aborted. Patient has planned evaluation with Palliative Care - but
her initial appointment is not until mid-November. She has been having increased pain throughout the abdomen - but primarily under the rib cage - over the past two weeks. She spoke with her Oncologist and was advised to increase her home Dilaudid
dose; however, her pain has remained poorly controlled. Patient presents to the ED this evening with intractable pain despite outpatient medications.
Patient received her last chemo treatment in mid-August and there are no plans for any additional chemotherapy.
She states that she does plan a course of Keytruda with her Oncologist (Dr. Roberts).
Her ostomy output has remained normal in volume and consistency. No bloody stools.
Medical History
Past Medical History
Past Medical History: Reports Other
Additional Past Medical History:
Stage IV Colon Cancer
Systemic Sclerosis
Hypothyroidism
Breast Cancer (Lumpectomy and Chemotherapy)
GERD
Past Surgical History: Reports Other
Additional Past Surgical History:
Ex Laparotomy - Aborted (October 17, 2024)
T&A
Rhinoplasty x 2
Cholecystectomy
Left Lumpectomy / Axillary Dissection
Gastric Bypass
Bilateral Mastectomy
Diverting Ileostomy (07/04/24)
Social History
Tobacco: Non-smoker
Alcohol: None
Drug: None
Family History
Family History: Not pertinent
Allergies / Home Medications
Allergies reflects when Allergies were last updated in [facility].
Home Medications with original date entered in [facility]
Allergy/Medication List:
Allergies
Allergy/AdvReac Type Severity Reaction Status Date / Time
SHELLEY Inhibitors Allergy Severe Anaphylaxis Verified 09/01/24 23:34
adhesive Allergy RASH FROM Verified 09/01/24 23:34
SURGICAL
TAPE
Penicillins Allergy Hives Verified 09/01/24 23:34
Home Medications
levothyroxine 25 mcg tablet 25 mcg PO DAILY 05/11/22
acetaminophen 500 mg tablet 500 mg PO Q6H PRN pain 04/21/24
famotidine 10 mg tablet 10 mg PO HS 04/21/24
tramadol 50 mg tablet 50 mg PO Q12H 04/21/24
omeprazole 20 mg tablet,delayed release 20 mg PO DAILY 04/27/24
ondansetron HCl 4 mg tablet 4 mg PO Q8H PRN nausea 07/02/24
diphenoxylate-atropine 2.5 mg-0.025 mg tablet (Lomotil) 1 tab PO DAILY 09/02/24
loperamide 1 mg/7.5 mL oral liquid (Imodium A-D) 4 mg PO TID 09/02/24
Review of Systems
-
History Source: Patient
A 12 point ROS was completed and negative except as noted: Yes
Constitutional: Reports Fatigue; Denies Fever or Chills
Respiratory: Denies Cough or Trouble Breathing
Cardiac: Denies Chest Pain or Palpitations
Abdomen/GI: Reports Abdominal Pain and Nausea; Denies Vomiting, Diarrhea, Constipated, Bloody Stools or Black Stools
: Denies Dysuria or Frequency
Musculoskeletal: Denies Joint Pain or Edema
Neurological: Denies Dizzy or Headache
Physical Exam
Vital Signs
Vital Signs
Temp Pulse Resp BP Pulse Ox
99.5 F 95 17 108/60 95
10/29/24 14:03 10/29/24 19:13 10/29/24 19:13 10/29/24 19:00 10/29/24 19:13
Physical Exam
General: Other (69y F in no acute distress.)
HEENT: Moist mucous membranes and PERRLA
Respiratory: Clear; No Wheezes, Rales or Rhonchi
Cardiac: S1/S2, Regular Rhythm and Murmur (II/ FARHANA)
GI: Other (Abdomen is soft. Diffusely tender with voluntary guarding. Midline incision healing well. RLQ ostomy with soft stool / liquid in device. Pos BS.)
Musculoskeletal: No Clubbing, No Cyanosis and No Edema
Neuro: AO x 3
Laboratory Results
-
10/29/24 Unknown
10/29/24 Unknown
Laboratory Results
Total Bilirubin 0.5 mg/dl (0.2-1.3) 10/29/24 Unknown
AST 25 U/L (14-36) 10/29/24 Unknown
ALT 16 U/L (0-35) 10/29/24 Unknown
Alkaline Phosphatase 121 U/L (38-126) 10/29/24 Unknown
Lipase 161 U/L (23-300) 10/29/24 Unknown
Impression/Plan
-
A/P: Patient is a 69y F with PMH significant for colon cancer who presents to ED complaining of uncontrolled abdominal pain.
Stage IV Colon Cancer
Intractable Abdominal Pain secondary to the above
- Admit for further evaluation and treatment.
- Adjust pain med regimen as needed for adequate pain control.
- Antiemetics PRN.
- Add lorazepam for anxiety / nausea.
- Palliative Care evaluation.
- Oncology evaluation.
Chronic Macrocytic Anemia
- Stable. Hgb is at / near recent baseline.
- Follow for any active bleeding or changes in H&H.
Hypothyroidism
- Stable. Continue usual T4 replacement.
Systemic Sclerosis
- Not on any medical therapy at this time.
DVT Prophylaxis: SCDs
Code Status: No Intubation / Ventilator Support
[2024-10-29] MEDS: OFIRMEV 100 IV (21:13)
[2024-10-29] MEDS: NSS 1000 IV (22:13)
[2024-10-30] MEDS: DILAUDID 1 MG IV ×6 (03:05→22:40)
--- NOTE | 2024-10-30 05:46 | PTCARENOTE ---
On 10/29 pt was admitted to . Pt had a fentanyl patch upon admission on the R.Upper Arm and states it was placed on 10/29 in the AM. This RN spoke to pharmacy, pharmacy gave the okay to leave to patch on for 72 hours and pharmacist adjusted the
order to remove. Pt A&Ox3 in bed with call carpenter within reach.
[2024-10-30] MEDS: SYNTHROID 25 MCG PO (06:06)
[2024-10-30] MEDS: ZOFRAN 4 MG IV ×3 (06:20→22:40)
[2024-10-30 07:00] VITALS: BP 99/59
[2024-10-30] MEDS: TORADOL 15 MG IV ×2 (07:53→17:41)
[2024-10-30] MEDS: PROTONIX 40 MG PO (07:53)
[2024-10-30] MEDS: TYLENOL 1000 MG PO (07:53)
[2024-10-30 08:07] LABS: Hematocrit 28.9 % (37.0-47.0); Hemoglobin 9.3 g/dL (12.0-16.0); Mean Corp Hgb Conc. 32.2 g/dL (33.0-37.0); Mean Corpuscular Volume 89.8 fL (81.0-99.0); Platelet Count 332 10^3/uL (130-400); Red Cell Dist. Width 15.0 % (11.5-14.5)
[2024-10-30 08:42] LABS: Blood Urea Nitrogen 13 mg/dl (7-17); Calcium 8.2 mg/dl (8.4-10.2); Carbon Dioxide 23 mmol/L (22-30); Chloride 104 mmol/L (98-107); Estimated Creatinine Clearance 73 ml/min; Glucose 85 mg/dl (70-99); Potassium 4.6 mmol/L (3.5-5.1); Sodium 132 mmol/L (135-145); eGFR > 60.00
--- NOTE | 2024-10-30 08:53 | VNURNOTE ---
Chart reviewed. Patient is current with [facility]. Will continue to follow hospital course and DC plans.
[2024-10-30 09:35] LABS: Urine Character Clear (Clear)
--- NOTE | 2024-10-30 09:47 | PTCARENOTE ---
pt aaox3. states pain in abd 10/12. pain med given as ordered. pt has fent patch on also. ivf running as ordered. ileostomy stoma pink draining loose bn.
--- NOTE | 2024-10-30 09:48 | PTCARENOTE ---
abd shanon glued c/d/i.
--- NOTE | 2024-10-30 10:15 | W.PN.HOSP.TC ---
Today's Communication/Plan
-
Febrile 101.7, LA 2.1, mild hypotension - start sepsis protocol, IVF bolus, BCx, UCx, IV ceftriaxone/flagyl for presumed abd source
worsening necrotic neoplasm hepatic flexure
Assessment / Plan
Assessment / Plan
Patient is a 69y F with PMH significant for colon cancer who presents to ED complaining of uncontrolled abdominal pain.
Sepsis
New fever on 10/30. Worsening leukocytosis
Becoming somewhat hypotensive
Check blood cultures x 2, check urine culture, check lactic acid
Bolus of NS
Empiric ceftriaxone/Flagyl for presumed abdominal source
Necrotic hepatic mass could be contributing, however given she is not a surgical candidate and she is more of a palliative/hospice candidate we will not pursue any procedure for this, unless she develops significant peritoneal fluid and needs a dx
paracentesis
Fever could alternately be from tumor burden
Stage IV Colon Cancer
w/Intractable Abdominal Pain
Status post ileostomy
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
- Adjust pain med regimen as needed for adequate pain control. PRN IV Dilaudid, fentanyl patch, oral oxycodone
- Antiemetics PRN.
- Add lorazepam for anxiety / nausea.
Ostomy care per routine
- Palliative Care evaluation. Patient has outpatient palliative care appointment for 11/09/24
- Oncology follows at [facility]
Chronic Macrocytic Anemia
- Stable. Hgb is at / near recent baseline.
- Follow for any active bleeding or changes in H&H.
Hyponatremia, asx
Mild, receiving NS, monitor BMP
Hypothyroidism
- Stable. Continue usual T4 replacement.
Systemic Sclerosis
- Not on any medical therapy at this time.
DVT Prophylaxis: Lovenox
Code Status: No Intubation / Ventilator Support
Anticipated Discharge: > 48 hours
Subjective/Interval History
-
Date of Service: October 30, 2024
Patient is still feeling abdominal pain, medications are helping. Her partner is at bedside. Febrile to 101.7F.
Objective Data
-
Labs:
Laboratory Results
10/30/24
07:01
WBC 20.5 H
Hgb 9.3 L
Hct 28.9 L
Plt Count 332 D
Sodium 132 L
Potassium 4.6
Chloride 104
Carbon Dioxide 23
BUN 13
Creatinine 0.5 L
Glucose 85
Calcium 8.2 L
Vital Signs:
Vital Signs
Temp Pulse Resp BP Pulse Ox
101.7 F H 95 16 99/59 95
10/30/24 07:00 10/30/24 07:00 10/30/24 07:00 10/30/24 07:00 10/30/24 07:00
I&O
10/29/24 10/30/24 10/31/24
06:59 06:59 06:59
Intake Total 480 / 480
Balance 480 / 480
Review of Systems
-
All other systems: Reviewed and negative
EENT: Denies Sore Throat or Runny Nose
Respiratory: Denies Cough
Genitourinary: Denies Dysuria
Physical Exam
-
General: No Apparent Distress
HEENT: Moist Mucous Membranes, Anicteric and PERRLA
Respiratory: Clear to Auscultation; Negative Wheezes, Rales or Rhonchi
Cardiac: Regular Rhythm and S1/S2; Negative Murmur, Rub or Gallop
GI: Soft, Nondistended, Normal Bowel Sounds, Tender, Organomegaly and Ostomy
Rectal: Deferred by Provider
Musculoskeletal: No Clubbing, No Cyanosis and No Edema
Skin: Warm and Dry; Negative Rash, Ulcers or Lesions
Neuro: Awake, AO x 3 and Nonfocal/Grossly Intact
Psych: Calm
Data Reviewed
-
CT Scan: Report Reviewed by me, Discussed with Patient and Discussed with Family
Labs: Labs Reviewed by me, Discussed with Patient and Discussed with Family
Old Records: Reviewed
--- NOTE | 2024-10-30 10:58 | CM ---
CM following re: discharge planning.
Reviewed pt's chart, met with pt and pt's partner Dot at bedside.
Pt is a 69 year old female, admitted with primary dx of Abdominal pain.
Pt reports she lives with Dot in a townhouse, 2 steps to enter. Pt reports she is currently with [facility] and pt stated she preferred Palliative care and she has an appointment with them on 11/10/24.
[facility] liaison following.
PCP: Lan Martinez
Pharmacy: [facility].
D/C plan: home with resumptions of [facility], palliative care and spouse support. Spouse to transport at discharge.
CM will follow with discharge plan updates as hospitalization progresses
[2024-10-30] MEDS: FLAGYL 500 MG 100 IV ×2 (11:06→19:26)
[2024-10-30 11:40] VITALS: BMI 19.9
[2024-10-30] MEDS: STERILE WATER FOR INJECTION 20 ML IV (12:00)
[2024-10-30] MEDS: ROCEPHIN 2000 MG IV (12:00)
[2024-10-30] MEDS: NSS 1000 IV ×3 (12:00→20:45)
[2024-10-30 15:00] VITALS: BP 99/56
[2024-10-30] MEDS: LOVENOX 40 MG SC (17:41)
[2024-10-30] MEDS: ROXICODONE 10 MG PO (20:45)
[2024-10-30 23:13] VITALS: BP 117/63
[2024-10-31] MEDS: DILAUDID 1 MG IV ×3 (01:40→07:43)
[2024-10-31] MEDS: FLAGYL 500 MG 100 IV ×3 (04:40→20:34)
[2024-10-31 05:05] LABS: Hematocrit 26.4 % (37.0-47.0); Hemoglobin 8.5 g/dL (12.0-16.0); Mean Corp Hgb Conc. 32.2 g/dL (33.0-37.0); Mean Corpuscular Volume 91.0 fL (81.0-99.0); Nucleated Red Blood Cells % 0.1 %; Platelet Count 593 10^3/uL (130-400); Red Cell Dist. Width 15.0 % (11.5-14.5)
[2024-10-31 05:24] LABS: ALT (SGPT) < 10 U/L (0-35); AST (SGOT) 18 U/L (14-36); Albumin 2.6 g/dl (3.5-5.0); Alkaline Phosphatase 111 U/L (38-126); Blood Urea Nitrogen 14 mg/dl (7-17); Calcium 7.6 mg/dl (8.4-10.2); Carbon Dioxide 20 mmol/L (22-30); Chloride 109 mmol/L (98-107); Estimated Creatinine Clearance 73 ml/min; Glucose 95 mg/dl (70-99); Potassium 4.2 mmol/L (3.5-5.1); Sodium 133 mmol/L (135-145); Total Protein 5.0 g/dl (6.3-8.2); eGFR > 60.00
[2024-10-31] MEDS: SYNTHROID 25 MCG PO (05:34)
[2024-10-31] MEDS: TORADOL 15 MG IV ×3 (05:34→17:42)
[2024-10-31] MEDS: NSS 1000 IV (05:34)
[2024-10-31 07:00] VITALS: BP 98/54
[2024-10-31] MEDS: PROTONIX 40 MG PO (07:43)
--- NOTE | 2024-10-31 09:07 | W.PN.HOSP.TC ---
Today's Communication/Plan
-
Increase pain meds
Consult oncology for prognosis
Assessment / Plan
Assessment / Plan
Patient is a 69y F with PMH significant for colon cancer who presents to ED complaining of uncontrolled abdominal pain.
Fever/leukocytosis concerning for sepsis and infection
-New fever on 10/30. Worsening leukocytosis
-Cultures negative to date, continue empiric Rocephin/Flagyl D2 for presumed abdominal source
-Necrotic hepatic mass could be contributing, however given she is not a surgical candidate and she is more of a palliative/hospice candidate we will not pursue any procedure for this, unless she develops significant peritoneal fluid and needs a dx
paracentesis
-Fever could alternately be from tumor burden
Stage IV Colon Cancer
w/Intractable Abdominal Pain
Status post ileostomy
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
-Continue fentanyl patch, pain meds increased, continue Ativan
-Patient and asking for prognosis, consult oncology
Ostomy care per routine
- Palliative Care evaluation. Patient has outpatient palliative care appointment for 11/09/24
- Oncology follows at [facility]
Chronic Macrocytic Anemia
- Stable. Hgb is at / near recent baseline.
- Follow for any active bleeding or changes in H&H.
Hyponatremia, asx
Mild, receiving NS, monitor BMP
Hypothyroidism
- Stable. Continue usual T4 replacement.
Systemic Sclerosis
- Not on any medical therapy at this time.
DVT Prophylaxis: Lovenox
Code Status: No Intubation / Ventilator Support
Total time spent to see the patient on the floor, examine the patient, review data and lab results, discuss treatment plan with patient, nursing staff around 39 minutes.
Physical Exam
General: No acute distress
HEENT: Normocephalic, Atraumatic, EOMI, MMM
Respiratory: Clear to Auscultation bilaterally
Cardiac: Normal S1/S2, Regular Rate and Rhythm
GI: tense, tender, distended, +ostomy
Extremities: Bilateral lower extremity edema noted
Neuro: Nonfocal/Grossly Intact
Anticipated Discharge: > 48 hours
Subjective/Interval History
-
Date of Service: October 31, 2024
Patient complains of severe abdominal pain. She has chronic nausea. No chest pain, shortness of breath. No fever, no vomiting.
Objective Data
-
Labs:
Laboratory Results
10/31/24
04:31
WBC 14.7 H
Hgb 8.5 L
Hct 26.4 L
Plt Count 593 H D
Sodium 133 L
Potassium 4.2
Chloride 109 H
Carbon Dioxide 20 L
BUN 14
Creatinine 0.5 L
Glucose 95
Calcium 7.6 L
Total Bilirubin 0.7
AST 18
ALT < 10
Alkaline Phosphatase 111
Vital Signs:
Vital Signs
Temp Pulse Resp BP Pulse Ox
98.3 F 98 24 98/54 92
10/31/24 07:00 10/31/24 07:00 10/31/24 07:00 10/31/24 07:00 10/31/24 07:00
I&O
10/30/24 10/31/24 11/01/24
06:59 06:59 06:59
Intake Total 480 / 480 1580 / 1580
Balance 480 / 480 1580 / 1580
[2024-10-31] MEDS: ROXICODONE 10 MG PO (10:00)
--- NOTE | 2024-10-31 10:19 | PN.CDI ---
CDI
- -
CDI:
Physician Documentation Request
Admit Date: 10/29/24 20:10
Dear Doctor Michele,
Patient admitted with sepsis.
10/30 Nutrition note, 'Pt meets criteria for severe protein calorie malnutrition of chronic illness with >10% wt loss x 6 months, <75% estimated needs met for >1 month.
Please provide in your note the diagnosis associated with the patient current nutritional status and your assessment:
Severe protein calorie malnutrition of chronic illness
Other (please specify)
Dorena Criteria ([facility] Hospitalist 2017)
2 or more criteria must be present for either
non severe or severe malnutrition
Note that the criteria differs related to the
presence of an acute or chronic illness
Chronic Illness
Energy Intake Non Severe: <75% for >1 month
Severe: <75% for >1 month
Weight Loss Non Severe: 5% over 1 month
7.5% over 3 months
10% over 6 months
20% over 1 year
Severe: >5% over 1 month
>7.5% over 3 months
>10% over 6 months
>20% over 1 year
Body Fat Non Severe: Mild Loss
Severe: Severe Loss
Muscle Mass Non Severe: Mild Loss
Severe: Severe Loss
Fluid Accumulation Non Severe: Mild Accumulation
Severe: Moderate to severe
accumulation
Reduced Production [employer] Strength Non Severe: N/A
Severe: Measurably reduced
Use of terms such as suspected, likely, concern for, or probable (associated with a specific diagnosis that is being evaluated, monitored, or treated as if it exists) are acceptable and can be coded in the inpatient setting, when documented at the
time of discharge.
Thank you,
Emily MULLEN,RN,CCDS
CDI Specialist
Available via [place] text
Please use your independent medical judgment in providing your response.
[2024-10-31] MEDS: DILAUDID 1.5 MG IV ×3 (11:26→20:35)
[2024-10-31] MEDS: STERILE WATER FOR INJECTION 20 ML IV (11:26)
[2024-10-31] MEDS: ROCEPHIN 2000 MG IV (11:26)
--- NOTE | 2024-10-31 13:24 | CM ---
CM following re: discharge planning.
Reviewed pt's chart, met with pt.
Pt lives with Dot in a townhouse, 2 steps to enter. Pt is currently with [facility] and pt stated she preferred Palliative care and she has an appointment with them on 11/10/24.
[facility] liaison following.
D/C plan: home with resumptions of [facility], palliative care and spouse support. Spouse to transport at discharge.
CM will follow with discharge plan updates as hospitalization progresses
[2024-10-31 15:00] VITALS: BP 93/54
[2024-10-31] MEDS: ZOFRAN 4 MG IV (15:48)
--- NOTE | 2024-10-31 17:24 | CON.ONC ---
Impression
Impression
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
Diverting ileostomy
Cancer associated pain
Scleroderma
Plan
Plan
Will increase Duragesic patch to 75. Continue as needed medications at same dose. Consider increasing patch to 100 if necessary in another 24 hours. I did discuss her prognosis with her in general terms. It is too early to speculate as she is
about to embark upon a new treatment. If she tolerates it and if it is of benefit, she could certainly go on for greater than 1 year. Alternatively, her autoimmune disease may worsen and the treatment may have to be stopped in which case her
prognosis is much more bleak. She seems to be fully aware of this.
Patient History
History of Present Illness
Consult from Dr. Wagner regarding colon cancer
This 69-year-old woman was admitted with severe pain. Her history dates back a few months when she was discovered to have a colon cancer at the hepatic flexure. It was borderline resectable and she underwent preoperative chemotherapy. In the
interim, she did require a diverting ileostomy due to obstruction. She went to the [facility] for an attempt at resection, but peritoneal disease was discovered and no resection was attempted. She was having minimal pain upon
discharge, but since then she has developed fairly severe pain refractory to home medications. Her pain seems to be worse over on her left flank, as well as down in her groin area, even though her predominant site of disease is in the hepatic
flexure.
Past-Medical/Surgical History
Systemic Sclerosis
Hypothyroidism
Breast Cancer (Lumpectomy and Chemotherapy)
GERD
Past Surgical History: Reports Other
Additional Past Surgical History:
Ex Laparotomy - Aborted (October 17, 2024)
T&A
Rhinoplasty x 2
Cholecystectomy
Left Lumpectomy / Axillary Dissection
Gastric Bypass
Bilateral Mastectomy
Diverting Ileostomy (07/04/24)
Social History
Tobacco: Non-smoker
Alcohol: None
Drug: None
Family History
Family History: Not pertinent
Patient Medication
�Medication �Instructions �Recorded �Confirmed �Last Taken �Type
levothyroxine 25 mcg tablet 25 mcg PO DAILY@06 Thyroid 05/11/22 10/29/24 07/01/24 History
acetaminophen 500 mg tablet 500 mg PO Q6H PRN pain 04/21/24 10/29/24 06/29/24 History
omeprazole 20 mg tablet,delayed 20 mg PO DAILY Gastrointestinal 04/27/24 10/29/24 06/29/24 History
release Issue
ondansetron HCl 4 mg tablet 4 mg PO Q8H PRN nausea 07/02/24 10/29/24 07/01/24 History
fentanyl 50 mcg/hr transdermal 1 patch transdermal Q72H Pain 10/29/24 10/29/24 Unknown History
patch
hydromorphone 1 mg/mL oral liquid 2 mg PO Q2HPRN PRN Pain 10/29/24 10/29/24 Unknown History
Active Medications
Generic Name Dose Route Start Last Admin
Trade Name Freq PRN Reason Stop Dose Admin
Ceftriaxone Sodium 2,000 mg 10/30/24 12:00 10/31/24 11:26
Ceftriaxone 2,000 Mg/20 Ml Vial IV 2,000 mg
Q24H CAROLE Administration
Enoxaparin Sodium 40 mg 10/30/24 18:00 10/30/24 17:41
Enoxaparin Sodium 40 Mg/0.4 Ml Syringe SC 11/27/24 17:59 40 mg
QPM CAROLE Administration
Fentanyl 1 patch 11/01/24 08:00
Fentanyl 50 Mcg/Hr Patch TRANSDERM 11/15/24 07:59
Q72H CAROLE
Heparin Sodium (Porcine) 500 unit 10/29/24 20:39
Heparin Flush Pf (100 Unit/Ml) 5 Ml Syringe IV 11/26/24 20:38
PER PROTOCOL CAROLE
Hydromorphone HCl 1.5 mg 10/31/24 10:56 10/31/24 15:47
Hydromorphone 1 Mg/Ml Carpuject IV 11/14/24 10:54 1.5 mg
Q2HPRN PRN Administration
Severe Pain
Metronidazole 100 mls @ 100 mls/hr 10/30/24 12:00 10/31/24 11:25
Flagyl 500 Mg IV 100 mls
Q8H CAROLE Administration
Ketorolac Tromethamine 15 mg 10/29/24 20:39 10/31/24 11:25
Ketorolac 15 Mg/Ml Injection IV 11/03/24 20:38 15 mg
Q6HPRN PRN Administration
Moderate Pain
Levothyroxine Sodium 25 mcg 10/30/24 06:00 10/31/24 05:34
Levothyroxine 25 Mcg Tablet PO 11/27/24 05:59 25 mcg
DAILY@0600 CAROLE Administration
Lorazepam 0.5 mg 10/29/24 20:39
Lorazepam 0.5 Mg Tablet PO 11/26/24 20:38
Q4HPRN PRN
Anxiety / nausea
Ondansetron HCl 4 mg 10/29/24 20:39 10/31/24 15:48
Ondansetron 4 Mg/2 Ml Vial IV 11/26/24 20:38 4 mg
Q6HPRN PRN Administration
nausea and vomiting
Oxycodone HCl 15 mg 10/31/24 10:56
Oxycodone 10 Mg Regular Release Tablet PO 11/12/24 20:58
Q4HPRN PRN
Mild Pain
Pantoprazole Sodium 40 mg 10/30/24 08:00 10/31/24 07:43
Pantoprazole 40 Mg Delayed Release Tablet PO 11/27/24 07:59 40 mg
DAILY CAROLE Administration
Patch Removal 0 patch 11/01/24 08:00
Remove Fentanyl Patch REMOVE 11/15/24 07:59
Q72H CAROLE
Sodium Chloride 0 flush 10/29/24 21:00
Sodium Chloride 0.9% (Flush) Syringe IV 11/26/24 20:59
PER PROTOCOL CAROLE
Sterile Water 20 ml 10/30/24 12:00 10/31/24 11:26
Sterile Water For Injection 20 Ml Vial IV 11/27/24 11:59 20 ml
Q24H CAROLE Administration
Review of Systems
-
All Other Systems: Reviewed and Negative
Physical Exam
-
Physical examination shows the patient to be in no acute distress.
HEENT exam is unremarkable.
There are no palpable nodes.
Chest is clear.
The heart is regular with no murmur or gallop.
The abdomen is soft mildly tender, right sided ostomy..
Extremities are unremarkable.
Neurologic is grossly intact.
Labs
Lab Results
WBC 14.7 10^3/uL (4.8-10.8) H 10/31/24 04:31
RBC 2.90 10^6/uL (4.20-5.40) L 10/31/24 04:31
Hgb 8.5 g/dL (12.0-16.0) L 10/31/24 04:31
Hct 26.4 % (37.0-47.0) L 10/31/24 04:31
MCV 91.0 fL (81.0-99.0) 10/31/24 04:31
MCH 29.3 pg (27.0-31.0) 10/31/24 04:31
MCHC 32.2 g/dL (33.0-37.0) L 10/31/24 04:31
RDW 15.0 % (11.5-14.5) H 10/31/24 04:31
Plt Count 593 10^3/uL (130-400) H D 10/31/24 04:31
MPV 8.8 fL (7.4-10.4) 10/31/24 04:31
Abs Immat Gran (auto) 0.1 10^3/uL (0-0.05) H 10/31/24 04:31
Absolute Neuts (auto) 13.7 10^3/uL (1.4-6.5) H 10/31/24 04:31
Absolute Lymphs (auto) 0.4 10^3/uL (1.2-3.4) L 10/31/24 04:31
Absolute Monos (auto) 0.6 10^3/uL (0.1-0.6) 10/31/24 04:31
Absolute Eos (auto) 0.0 10^3/uL (0-0.7) 10/31/24 04:31
Absolute Basos (auto) 0.0 10^3/uL (0-0.2) 10/31/24 04:31
Immature Gran % 0.5 % (0-0.5) 10/31/24 04:31
Neutrophils % 92.8 % (42.2-75.2) H 10/31/24 04:31
Lymphocytes % 2.4 % (20.5-51.1) L 10/31/24 04:31
Monocytes % 4.1 % (1.7-9.3) 10/31/24 04:31
Eosinophils % 0.0 % (0-6) 10/31/24 04:31
Basophils % 0.2 % (0-2) 10/31/24 04:31
Creatinine 0.5 mg/dL (0.6-1.0) L 10/31/24 04:31
Vital Signs
Vital Signs
Temp Pulse Resp BP Pulse Ox
98.2 F 96 20 93/54 90
10/31/24 15:00 10/31/24 15:00 10/31/24 15:00 10/31/24 15:00 10/31/24 15:00
[2024-10-31] MEDS: LOVENOX 40 MG SC (17:42)
[2024-10-31 23:15] VITALS: BP 93/50
[2024-11-01] MEDS: DILAUDID 1.5 MG IV ×6 (00:13→21:40)
[2024-11-01] MEDS: FLAGYL 500 MG 100 IV ×2 (03:40→11:05)
[2024-11-01 04:40] LABS: Hematocrit 24.2 % (37.0-47.0); Hemoglobin 7.9 g/dL (12.0-16.0); Mean Corp Hgb Conc. 32.6 g/dL (33.0-37.0); Mean Corpuscular Volume 91.0 fL (81.0-99.0); Platelet Count 564 10^3/uL (130-400); Red Cell Dist. Width 15.1 % (11.5-14.5)
[2024-11-01 05:06] LABS: Blood Urea Nitrogen 20 mg/dl (7-17); Calcium 7.8 mg/dl (8.4-10.2); Carbon Dioxide 20 mmol/L (22-30); Chloride 110 mmol/L (98-107); Estimated Creatinine Clearance 73 ml/min; Glucose 103 mg/dl (70-99); Magnesium 1.9 mg/dl (1.6-2.3); Potassium 4.4 mmol/L (3.5-5.1); Sodium 135 mmol/L (135-145); eGFR > 60.00
[2024-11-01] MEDS: SYNTHROID 25 MCG PO (05:09)
[2024-11-01 07:00] VITALS: BP 94/55
--- NOTE | 2024-11-01 07:20 | W.PN.ONC2 ---
Today's Communication / Plan
-
See pain med recs. Stable for DC
Impression
Impression
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
Diverting ileostomy
Cancer associated pain
Scleroderma
Plan
Plan
Pain much better with increased dose of Duragesic patch (50 > 75) and increased Dilaudid breakthrough (1 > 1.5 mg) and reduced frequency (3 > 2 h).
For oral Dilaudid, suggest 4-6 mg PO Q3-4 PRN breakthrough for home.
Subjective/Objective
Chief Complaint
ACS Heme Onc
Subjective
Pain much better with increased dose of Duragesic patch and increased Dilaudid breakthrough pain and reduced frequency.
Vital Signs:
Vital Signs
Temp Pulse Resp BP Pulse Ox
98.2 F 104 18 93/50 96
10/31/24 23:15 10/31/24 23:15 10/31/24 23:15 10/31/24 23:15 10/31/24 23:15
Lab Results:
Laboratory Data
WBC 22.6 10^3/uL (4.8-10.8) H 11/01/24 04:15
Hgb 7.9 g/dL (12.0-16.0) L 11/01/24 04:15
Plt Count 564 10^3/uL (130-400) H 11/01/24 04:15
eGFR > 60.00 11/01/24 04:15
Physical Exam
Cardiology: S1 and S2
Pulmonary: Clear
GI: Soft
[2024-11-01] MEDS: PROTONIX 40 MG PO (07:48)
[2024-11-01] MEDS: ZOFRAN 4 MG IV (07:57)
[2024-11-01] MEDS: ROXICODONE 15 MG PO ×2 (11:04→18:14)
[2024-11-01] MEDS: ROCEPHIN 2000 MG IV (11:05)
[2024-11-01] MEDS: STERILE WATER FOR INJECTION 20 ML IV (11:05)
[2024-11-01] MEDS: NEUTRA-PHOS POWDER PACKET 250 MG PO ×3 (11:05→21:39)
--- NOTE | 2024-11-01 11:05 | CON.ID ---
Consultation
-
Date/Time Consultation Requested: November 01, 2024 0718
Date/Time Consultation Performed: November 01, 2024 1105
Requesting Provider: Dr. Milka Hoff
Performing Provider: Dr. Shweta Huddleston
Reason for Consultation: Fever
Chief Complaint / Past History
Chief Complaint
Abdominal pain
History of Present Illness
Ms. Watts is a 69-year-old female with stage IV colon cancer who presented to the ER October 29 due to severe abdominal pain. Colon cancer was diagnosed in late 2023 and she underwent chemotherapy April 2024 with poor response and therefore
further chemotherapy discontinued mid August. In July she was hospitalized with large bowel and small bowel obstruction from the tumor and underwent diverting loop ileostomy. She then had planned colectomy at [place] October 17. However during
laparotomy, peritoneal studding encountered and therefore colectomy was aborted. She was to receive palliative care. Patient then developed significant diffuse abdominal pain and therefore came to the hospital October 29. CT of the abdomen pelvis
showed large infiltrating necrotic hepatic flexure mass which has progressed, no morgan obstruction, mild ascites, mild diffuse enteritis/ileus. Initially she was afebrile. October 30 AM, she had 1 episode of fever 101.7. Admission white count 18.7,
now 22.6. UA negative. Blood cultures negative. Abdominal pain is now controlled with Duragesic patch. Patient reports she has been having intermittent chills and facial flushing for the past several months. Also her white count has been
elevated during this time. She denies cough or shortness of breath. No urine symptoms. No joint pains. No sinus congestion or sore throat. No rash. She continues with high ostomy output, stable. No ill contacts.
Past History
Additional Past Medical History:
Colon cancer diagnosed late 2023 with peritoneal mets, last received chemotherapy 08/2024
Colon cancer bowel obstruction status post diverting loop ileostomy July 04, 2024
Lap colectomy aborted due to peritoneal mets 10/17/24
Hypothyroidism
Systemic sclerosis
Hx of breast cancer status bilateral mastectomy and chemotherapy
Cholecystectomy
Gastric bypass
Allergy History:
SHELLEY Inhibitors Allergy (Severe, Verified 09/01/24 23:34)
Anaphylaxis
adhesive Allergy (Verified 09/01/24 23:34)
RASH FROM SURGICAL TAPE
Penicillins Allergy (Verified 09/01/24 23:34)
Hives
Medications Reviewed: Yes
Current Antibiotics:
Ceftriaxone day 3
Metronidazole day 3
Social History
Tobacco: Non-Smoker
Alcohol: None
Drug: None
Review of Systems
Review of Systems
General: Chills and Change in Appetite
HEENT: Negative Stiff Neck, Sinus Problems or Pharyngitis
Cardiovascular: Negative Chest Pain or Dyspnea
Respiratory: Negative Dyspnea, Cough or Sputum Production
Gasteroenterology: Negative Nausea, Vomiting or Diarrhea
Genital / Urological: Negative Dysuria or Flank Pain
Endocrine: Weakness
Musculoskeletal: Negative Joint Swelling or Arthralgias
Neurological: Negative Dizziness
All systems: All other systems were reviewed and were negative
Vital Signs
Temp Pulse Resp BP Pulse Ox
98.8 F 112 20 94/55 93
11/01/24 07:00 11/01/24 07:00 11/01/24 07:00 11/01/24 07:00 11/01/24 07:00
Selected Entries
10/30/24
07:00
Temp 101.7 F H
Physical Exam
Physical Exam
Constitutional: No Acute Distress and Comfortable
Head: Other (No frontal or maxillary sinus tenderness)
Eyes: No Conjunctival Hemorrhage and Sclera Anicteric
Cardiovascular: Regular Rate and S1/S2
Pulmonary: Clear
Gastrointestinal: Soft, Tender (minimal tenderness upper abdomen) and Other (ileostomy with brown semi-liquid stool )
Genito-Urinary: Negative CVA Tenderness
Extremities: Negative Edema
Musculoskeletal: Negative Joint Swelling, Joint Effusion or Spinal Tenderness
Neurological: AO x 3
Lines: Port (LCW no erythema)
Lab / Diagnostic Study Results
11/01/24 04:15
11/01/24 04:15
Abs Immat Gran (auto) 0.1 10^3/uL (0-0.05) H 10/31/24 04:31
Absolute Neuts (auto) 13.7 10^3/uL (1.4-6.5) H 10/31/24 04:31
Absolute Lymphs (auto) 0.4 10^3/uL (1.2-3.4) L 10/31/24 04:31
Absolute Monos (auto) 0.6 10^3/uL (0.1-0.6) 10/31/24 04:31
Absolute Basos (auto) 0.0 10^3/uL (0-0.2) 10/31/24 04:31
Immature Gran % 0.5 % (0-0.5) 10/31/24 04:31
Neutrophils % 92.8 % (42.2-75.2) H 10/31/24 04:31
Lymphocytes % 2.4 % (20.5-51.1) L 10/31/24 04:31
Monocytes % 4.1 % (1.7-9.3) 10/31/24 04:31
Eosinophils % 0.0 % (0-6) 10/31/24 04:31
Basophils % 0.2 % (0-2) 10/31/24 04:31
Lactic Acid 1.7 mmol/L (0.7-2.0) 10/30/24 13:44
Ur Squamous Epith Cells 3-5 /LPF (Few) 10/30/24 09:24
Microbiology Results
Micro:
10/30/24 09:18 Blood Culture - Preliminary
Blood/Venous No Growth in 48 hours- Final report to follow
10/30/24 08:54 Blood Culture - Preliminary
Blood/Venous No Growth in 48 hours- Final report to follow
10/29/24 CT a/p: Large infiltrating necrotic hepatic flexure neoplasm, progressed. No morgan obstruction. Probable mild diffuse enteritis/ileus. Small volume free fluid in the pelvis, likely reactive. No overt CT evidence for metastatic disease in
the abdomen or pelvis.
Assessment / Plan
# Fever x 1 resolved
# Leukocytosis
# Stage IV colon cancer with peritoneal mets, no longer on chemo
# hx of diverting ileostomy 07/04/24
- No infection identified.
UA neg, blood cx neg.
CT a/p: progression of large necrotic hepatic flexure tumor, no abscess
- Suspect tumor fever.
- Leukocytosis likely reactive to progression of colon cancer.
- DC ceftriaxone and metronidazole.
[2024-11-01] MEDS: NEUTRA-PHOS POWDER PACKET PO (11:38)
--- NOTE | 2024-11-01 12:04 | CM ---
CM following re: discharge planning.
Reviewed pt's chart, met with pt.
Pt lives with Dot in a townhouse, 2 steps to enter. Pt is current with [facility] and pt stated she preferred Palliative care and she has an appointment with them on 11/10/24.
[facility] liaison following.
Please fax discharge instructions to [facility] at [phone].
D/C plan: home with resumptions of [facility], palliative care and spouse support. Spouse to transport at discharge.
CM will follow with discharge plan updates as hospitalization progresses
--- NOTE | 2024-11-01 13:42 | W.PN.HOSP.TC ---
Today's Communication/Plan
-
see bold
Assessment / Plan
Assessment / Plan
Patient is a 69y F with PMH significant for colon cancer who presents to ED complaining of uncontrolled abdominal pain.
Fever/leukocytosis, sepsis/infection ruled out
-New fever on 10/30. Worsening leukocytosis
-Necrotic hepatic mass could be contributing, however given she is not a surgical candidate and she is more of a palliative/hospice candidate we will not pursue any procedure for this, unless she develops significant peritoneal fluid and needs a dx
paracentesis
-Fever could alternately be from tumor burden
-Cultures negative to date, on empiric Rocephin/Flagyl D2 for presumed abdominal source
-Appreciate ID input, no infection identified, ID suspects tumor fever
-Rocephin/Flagyl discontinued
Stage IV Colon Cancer
w/Intractable Abdominal Pain
Status post ileostomy
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
-Appreciate oncology input, patient has prognosis of 1 year if she is able to tolerate Keytruda
-Pain is better controlled with increased pain meds, plan to increase fentanyl patch to 100 mcg every 72 hours as she is still requiring IV Dilaudid
Ostomy care per routine
- Palliative Care evaluation. Patient has outpatient palliative care appointment for 11/09/24
- Oncology follows at [facility]
Chronic Macrocytic Anemia
- Hemoglobin downtrending, check iron studies, B12/folic acid
Hyponatremia, asx
Mild, receiving NS, monitor BMP
Hypothyroidism
- Stable. Continue usual T4 replacement.
Systemic Sclerosis
- Not on any medical therapy at this time.
DVT Prophylaxis: Lovenox
Code Status: No Intubation / Ventilator Support
Total time spent to see the patient on the floor, examine the patient, review data and lab results, discuss treatment plan with patient, nursing staff around 50 minutes.
Physical Exam
General: No acute distress
HEENT: Normocephalic, Atraumatic, EOMI, MMM
Respiratory: Clear to Auscultation bilaterally
Cardiac: Normal S1/S2, Regular Rate and Rhythm
GI: tense, tender, distended, healing midline incision, +ostomy
Extremities: Bilateral lower extremity edema noted
Neuro: Nonfocal/Grossly Intact
Anticipated Discharge: 24 - 48 hours
Subjective/Interval History
-
Date of Service: November 01, 2024
Patient reports her pain is better controlled on increasing the pain meds. She has chronic nausea. She feels like it is hard for her to breathe because of her abdominal pain. No chest pain. No fever, no vomiting.
Objective Data
-
Labs:
Laboratory Results
11/01/24
04:15
WBC 22.6 H
Hgb 7.9 L
Hct 24.2 L
Plt Count 564 H
Sodium 135
Potassium 4.4
Chloride 110 H
Carbon Dioxide 20 L
BUN 20 H
Creatinine 0.6
Glucose 103 H
Calcium 7.8 L
Vital Signs:
Vital Signs
Temp Pulse Resp BP Pulse Ox
98.2 F 104 18 93/50 96
10/31/24 23:15 10/31/24 23:15 10/31/24 23:15 10/31/24 23:15 10/31/24 23:15
I&O
10/31/24 11/01/24 11/02/24
06:59 06:59 06:59
Intake Total 1580 / 1580 660 / 660
Output Total 1200 / 1200
Balance 1580 / 1580 -540 / -540
[2024-11-01 15:00] VITALS: BP 98/61
[2024-11-01] MEDS: TYLENOL 650 MG PO (16:13)
[2024-11-01] MEDS: LOVENOX 40 MG SC (18:14)
[2024-11-01 23:06] VITALS: BP 102/63
[2024-11-02] MEDS: ROXICODONE 15 MG PO ×2 (02:47→10:43)
[2024-11-02] MEDS: SYNTHROID 25 MCG PO (05:46)
[2024-11-02] MEDS: TORADOL 15 MG IV ×3 (05:52→23:12)
[2024-11-02 07:10] VITALS: BP 91/59
[2024-11-02 07:21] LABS: ALT (SGPT) < 10 U/L (0-35); AST (SGOT) 20 U/L (14-36); Albumin 2.5 g/dl (3.5-5.0); Alkaline Phosphatase 120 U/L (38-126); Blood Urea Nitrogen 23 mg/dl (7-17); Calcium 8.4 mg/dl (8.4-10.2); Carbon Dioxide 20 mmol/L (22-30); Chloride 107 mmol/L (98-107); Estimated Creatinine Clearance 73 ml/min; Glucose 82 mg/dl (70-99); Potassium 4.9 mmol/L (3.5-5.1); Sodium 132 mmol/L (135-145); Total Protein 5.0 g/dl (6.3-8.2); eGFR > 60.00
[2024-11-02 07:29] LABS: Hematocrit 24.4 % (37.0-47.0); Hemoglobin 7.8 g/dL (12.0-16.0); Mean Corp Hgb Conc. 32.0 g/dL (33.0-37.0); Mean Corpuscular Volume 90.4 fL (81.0-99.0); Platelet Count 626 10^3/uL (130-400); Red Cell Dist. Width 15.5 % (11.5-14.5)
[2024-11-02 07:31] LABS: Total Iron Binding Capacity 194 ug/dl (265-497)
[2024-11-02 07:53] LABS: Ferritin 180.0 ng/ml (11.1-264.0)
[2024-11-02 07:54] LABS: Iron < 20 ug/dl (37-170)
[2024-11-02] MEDS: PROTONIX 40 MG PO (08:22)
[2024-11-02 08:24] LABS: Folate 8.3 ng/ml (2.76-20); Vitamin B12 658 pg/ml (239-931)
--- NOTE | 2024-11-02 08:56 | W.PN.HOSP.TC ---
Today's Communication/Plan
-
see bold
Assessment / Plan
Assessment / Plan
Patient is a 69y F with PMH significant for colon cancer who presents to ED complaining of uncontrolled abdominal pain.
Fever/leukocytosis, sepsis/infection ruled out
-New fever on 10/30. Worsening leukocytosis
-Necrotic hepatic mass could be contributing, however given she is not a surgical candidate and she is more of a palliative/hospice candidate we will not pursue any procedure for this, unless she develops significant peritoneal fluid and needs a dx
paracentesis
-Fever could alternately be from tumor burden
-Cultures negative to date, on empiric Rocephin/Flagyl D2 for presumed abdominal source
-Appreciate ID input, no infection identified, ID suspects tumor fever
-Rocephin/Flagyl discontinued
-Start IV fluids for tachycardia, likely dehydration induced
Stage IV Colon Cancer
w/Intractable Abdominal Pain
Status post ileostomy
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
-Appreciate oncology input, patient has prognosis of 1 year if she is able to tolerate Keytruda
-Pain is better controlled with increased pain meds, increased fentanyl patch to 100 mcg every 72 hours, continue oxycodone 15 mg every 4 hours as needed�which can be converted to hydromorphone 2 mg every 6 hours as needed upon discharge
Ostomy care per routine
- Palliative Care evaluation. Patient has outpatient palliative care appointment for 11/09/24
- Oncology follows at [facility]
- Appreciate colorectal surgery input, patient ordered Imodium as needed -the patient and spouse worried about blockage
Chronic iron deficiency anemia
- Continue to trend hemoglobin, transfuse for hemoglobin less than 7.0
Hypophosphatemia
- Replete prn
Hyponatremia, asx
-Mild, monitor
Hypothyroidism
- Stable. Continue usual T4 replacement.
Systemic Sclerosis
- Not on any medical therapy at this time.
DVT Prophylaxis: Lovenox
Code Status: No Intubation / Ventilator Support
Updated spouse at bedside 11/02
Total time spent to see the patient on the floor, examine the patient, review data and lab results, discuss treatment plan with patient, nursing staff around 51 minutes.
Physical Exam
General: No acute distress
HEENT: Normocephalic, Atraumatic, EOMI, MMM
Respiratory: Clear to Auscultation bilaterally
Cardiac: Normal S1/S2, Regular Rate and Rhythm
GI: tense, tender, distended, healing midline incision, +ostomy
Extremities: Bilateral lower extremity edema noted
Neuro: Nonfocal/Grossly Intact
Anticipated Discharge: 24 - 48 hours
Subjective/Interval History
-
Date of Service: November 01, 2024
Patient reports improvement in her abdominal pain with increasing her pain medications. She has fever. Has nausea. No vomiting, no chest pain, no shortness of breath.
Objective Data
-
Labs:
Laboratory Results
11/01/24
04:15
WBC 22.6 H
Hgb 7.9 L
Hct 24.2 L
Plt Count 564 H
Sodium 135
Potassium 4.4
Chloride 110 H
Carbon Dioxide 20 L
BUN 20 H
Creatinine 0.6
Glucose 103 H
Calcium 7.8 L
Vital Signs:
Vital Signs
Temp Pulse Resp BP Pulse Ox
98.8 F 112 20 94/55 93
11/01/24 07:00 11/01/24 07:00 11/01/24 07:00 11/01/24 07:00 11/01/24 07:00
I&O
10/31/24 11/01/24 11/02/24
06:59 06:59 06:59
Intake Total 1580 / 1580 660 / 660
Output Total 1200 / 1200
Balance 1580 / 1580 -540 / -540
--- NOTE | 2024-11-02 09:52 | CON.CRS ---
Consultation
-
Performing Provider: Mehul Girard MD
Reason for Consultation: Spouse requested
Medical History
-
History of Present Illness:
69-year-old female with PMH of systemic scleroderma, breast cancer s/p RADIOLOGY PHYSICIAN ASSISTANT and left lumpectomy 2011, s/p bilateral mastectomy in 2019, obesity s/p mini-gastric bypass 2010, PUD/GERD, kidney stones, and locally advanced transverse colon cancer (s/p
neoadjuvant therapy with FOLFOX, DLI 07/14/2024 due to LBO; attempt at surgical resection at [facility], but aborted due to peritoneal disease) who presented with worsening abdominal pain, CT scan showing progression of transverse colon cancer, mild diffuse
enteritis. She has also been spiking fevers, cultures have been negative. ID feels that this is likely fevers related to necrotic tumor. She has been having elevated ostomy output as well, none recorded the last 2 days. Denies any vomiting, but
chronically mildly nauseous. The pain is epigastric, but also extending into the lower abdomen.
Past Medical History
Past Medical History: Other (as above)
Past Surgical History: Other (as above, including lithotripsy, cholecystectomy, tonsils)
Social History
Tobacco: Non-Smoker
Alcohol: None
Drug: None
Family History
Family History: Reviewed & Not Pertinent
Allergies / Home Medications
Allergy/AdvReac Type Severity Reaction Status Date / Time
SHELLEY Inhibitors Allergy Severe Anaphylaxis Verified 09/01/24 23:34
adhesive Allergy RASH FROM Verified 09/01/24 23:34
SURGICAL
TAPE
Penicillins Allergy Hives Verified 09/01/24 23:34
�Medication �Instructions �Recorded �Confirmed �Type
levothyroxine 25 mcg tablet 25 mcg PO DAILY@06 Thyroid 05/11/22 10/29/24 History
acetaminophen 500 mg tablet 500 mg PO Q6H PRN pain 04/21/24 10/29/24 History
omeprazole 20 mg tablet,delayed 20 mg PO DAILY Gastrointestinal 04/27/24 10/29/24 History
release Issue
ondansetron HCl 4 mg tablet 4 mg PO Q8H PRN nausea 07/02/24 10/29/24 History
fentanyl 50 mcg/hr transdermal 1 patch transdermal Q72H Pain 10/29/24 10/29/24 History
patch
hydromorphone 1 mg/mL oral liquid 2 mg PO Q2HPRN PRN Pain 10/29/24 10/29/24 History
Review of Systems
-
A 10 point review of systems was completed, and was negative except as per HPI.
Physical Exam
Vital Signs
Temp 98.9 F 11/02/24 07:10
Pulse 106 11/02/24 07:10
Resp Rate 16 11/02/24 07:10
Blood pressure 91/59 11/02/24 07:10
SaO2 91 11/02/24 07:10
Body Mass Index (BMI) 19.9
Lab Results / Allergies
11/02/24 05:58
11/02/24 05:58
WBC 29.3 10^3/uL (4.8-10.8) H 11/02/24 05:58
Hgb 7.8 g/dL (12.0-16.0) L 11/02/24 05:58
Hct 24.4 % (37.0-47.0) L 11/02/24 05:58
Plt Count 626 10^3/uL (130-400) H 11/02/24 05:58
Abs Immat Gran (auto) 0.1 10^3/uL (0-0.05) H 10/31/24 04:31
Neutrophils % 92.8 % (42.2-75.2) H 10/31/24 04:31
Allergy/AdvReac Type Severity Reaction Status Date / Time
SHELLEY Inhibitors Allergy Severe Anaphylaxis Verified 09/01/24 23:34
adhesive Allergy RASH FROM Verified 09/01/24 23:34
SURGICAL
TAPE
Penicillins Allergy Hives Verified 09/01/24 23:34
Physical Exam
General: No Apparent Distress and Comfortable
HEENT: Normocephalic and Atraumatic
Respiratory: Non Labored Respirations
GI: Soft, Tender (Moderately tender in the epigastric to left hemiabdomen, mildly tender in the right abdomen), Distended (Nondistended, not tympanitic, somewhat firm diffusely) and Other (Ostomy pink and productive of stool, prominent bud but no
significant prolapse)
Skin: Warm and Dry
Neuro: AO x 3
Assessment / Plan
-
69-year-old female with PMH of systemic scleroderma, breast cancer s/p RADIOLOGY PHYSICIAN ASSISTANT and left lumpectomy 2011, s/p bilateral mastectomy in 2019, obesity s/p gastric bypass 2010, PUD/GERD, kidney stones, and locally advanced transverse colon cancer (s/p
neoadjuvant therapy with FOLFOX, DLI 07/14/2024 due to LBO; attempt at surgical resection at [facility], but aborted due to peritoneal disease) who presented with worsening abdominal pain, CT scan showing progression of transverse colon cancer, mild diffuse
enteritis. She has also been spiking fevers, cultures have been negative. ID feels that this is likely fevers related to necrotic tumor. She has been having elevated ostomy output as well, none recorded the last 2 days
AF, normotensive, tachycardic to the 100�110s
WBC 29.3, Hb 7.8, CR 0.6
� Worsening abdominal pain, likely due to progression of tumor as well as mild enteritis
�No acute surgical intervention necessary
�Continue regular diet
-Continue pain mgmt with fent patch, oxy and dilaudid
�Increased ileostomy output
�Will restart Imodium 1 tablet every 6 hours; strict intake/output; recommend ostomy output <1L/daily
�Elevation in tachycardia today, would recommend 1L bolus in case of dehydration due to increased ostomy output
�Appreciate ID
� Appreciate oncology, pending Keytruda
� Appreciate hospitalist
� Colorectal to follow peripherally; please call for any questions or concerns
[2024-11-02] MEDS: NEUTRA-PHOS POWDER PACKET 250 MG PO ×4 (09:59→21:23)
--- NOTE | 2024-11-02 13:30 | CM ---
CM following re: discharge planning.
Reviewed pt's chart, met with pt.
Pt lives with Dot in a townhouse, 2 steps to enter. Pt is current with [facility] and pt stated she preferred Palliative care and she has an appointment with them on 11/10/24.
[facility] liaison following.
Please fax discharge instructions to [facility] at [phone].
D/C plan: home with resumptions of [facility], palliative care and spouse support. Spouse to transport at discharge.
CM will follow with discharge plan updates as hospitalization progresses
[2024-11-02] MEDS: NSS 1000 IV (14:07)
[2024-11-02] MEDS: DILAUDID 1.5 MG IV ×3 (14:11→23:02)
[2024-11-02 15:05] VITALS: BP 97/63
[2024-11-02 15:37] VITALS: BP 97/63
[2024-11-02] MEDS: LOVENOX 40 MG SC (18:27)
[2024-11-02 23:59] VITALS: BP 95/85
[2024-11-03] VITALS (9 sets, daily range): BP systolic 84–119; BP diastolic 51–70
[2024-11-03] MEDS: DILAUDID 1.5 MG IV ×3 (05:16→20:24)
[2024-11-03] MEDS: SYNTHROID 25 MCG PO (05:16)
[2024-11-03 05:58] LABS: Hematocrit 23.0 % (37.0-47.0); Hemoglobin 7.4 g/dL (12.0-16.0); Mean Corp Hgb Conc. 32.2 g/dL (33.0-37.0); Mean Corpuscular Volume 91.6 fL (81.0-99.0); Platelet Count 539 10^3/uL (130-400); Red Cell Dist. Width 15.7 % (11.5-14.5)
[2024-11-03 06:26] LABS: Blood Urea Nitrogen 28 mg/dl (7-17); Calcium 7.8 mg/dl (8.4-10.2); Carbon Dioxide 19 mmol/L (22-30); Chloride 110 mmol/L (98-107); Estimated Creatinine Clearance 63 ml/min; Glucose 73 mg/dl (70-99); Magnesium 2.3 mg/dl (1.6-2.3); Potassium 4.9 mmol/L (3.5-5.1); Sodium 135 mmol/L (135-145); eGFR > 60.00
[2024-11-03] MEDS: NEUTRA-PHOS POWDER PACKET 250 MG PO ×4 (08:07→22:46)
[2024-11-03] MEDS: PROTONIX 40 MG PO (08:07)
--- NOTE | 2024-11-03 08:44 | W.PN.HOSP.TC ---
Addendum entered and electronically signed by Thang Hoff MD 11/03/24 16:03:
Severe protein calorie malnutrition of chronic illness -encourage oral intake
Original Note:
Today's Communication/Plan
-
see bold
Assessment / Plan
Assessment / Plan
Patient is a 69y F with PMH significant for colon cancer who presents to ED complaining of uncontrolled abdominal pain.
Fever/leukocytosis, sepsis/infection ruled out
-New fever on 10/30. Worsening leukocytosis
-Necrotic hepatic mass could be contributing, however given she is not a surgical candidate and she is more of a palliative/hospice candidate we will not pursue any procedure for this, unless she develops significant peritoneal fluid and needs a dx
paracentesis
-Fever could alternately be from tumor burden
-Cultures negative to date, on empiric Rocephin/Flagyl D2 for presumed abdominal source
-Appreciate ID input, no infection identified, ID suspects tumor fever
-Rocephin/Flagyl discontinued
- Continue IV fluids as needed for tachycardia and low blood pressure, likely dehydration induced
Stage IV Colon Cancer
w/Intractable Abdominal Pain
Status post ileostomy
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
-Appreciate oncology input, patient has prognosis of 1 year if she is able to tolerate Keytruda
-Pain is better controlled with increased pain meds, increased fentanyl patch to 125 mcg every 72 hours, continue oxycodone 15 mg every 4 hours as needed�which can be converted to hydromorphone 6 mg every 2 hours as needed upon discharge
Ostomy care per routine
- Palliative Care evaluation. Patient has outpatient palliative care appointment for 11/09/24
- Oncology follows at [place]
- Appreciate colorectal surgery input, start Imodium 2 mg daily sched
Chronic iron deficiency anemia
- Hemoglobin 7.4 today, patient complains of lightheadedness
- Transfuse 1 unit packed red blood cells
Hypophosphatemia
- Replete prn
Hyponatremia, asx
-Mild, monitor
Hypothyroidism
- Stable. Continue usual T4 replacement.
Systemic Sclerosis
- Not on any medical therapy at this time.
DVT Prophylaxis: Lovenox
Code Status: No Intubation / Ventilator Support
Updated spouse at bedside 11/03
Total time spent to see the patient on the floor, examine the patient, review data and lab results, discuss treatment plan with patient, nursing staff around 52 minutes.
Physical Exam
General: No acute distress
HEENT: Normocephalic, Atraumatic, EOMI, MMM
Respiratory: Clear to Auscultation bilaterally
Cardiac: Normal S1/S2, Regular Rate and Rhythm
GI: tense, tender, distended, healing midline incision, +ostomy
Extremities: Bilateral lower extremity edema noted
Neuro: Nonfocal/Grossly Intact
Anticipated Discharge: 24 - 48 hours
Subjective/Interval History
-
Date of Service: November 03, 2024
Patient complains of being lightheaded and dizzy. She felt better after receiving IV fluid bolus. She was awakened in the middle of the night several times by sharp abdominal pain. Still having intermittent fever. No vomiting.
Objective Data
-
Labs:
Laboratory Results
11/03/24
05:22
WBC 26.5 H
Hgb 7.4 L
Hct 23.0 L
Plt Count 539 H
Sodium 135
Potassium 4.9
Chloride 110 H
Carbon Dioxide 19 L
BUN 28 H
Creatinine 0.7
Glucose 73
Calcium 7.8 L
Vital Signs:
Vital Signs
Temp Pulse Resp BP Pulse Ox
98.4 F 105 16 84/51 91
11/03/24 07:05 11/03/24 07:05 11/03/24 07:05 11/03/24 07:05 11/03/24 07:05
I&O
11/02/24 11/03/24 11/04/24
06:59 06:59 06:59
Intake Total 900 / 900 480 / 480
Balance 900 / 900 480 / 480
[2024-11-03] MEDS: NSS 500 IV (08:50)
--- NOTE | 2024-11-03 09:03 | PTCARENOTE ---
BP 84/51. patient feels symptomatic. MD ordered 500 cc fluid bolus. IVF started and infusing. pain 12/13. IV Dilaudid given. family at bedside. patient AAox3, conversing and making needs known, care ongoing
[2024-11-03] MEDS: DURAGESIC 25 MCG/HR PATCH 1 PATCH TRANSDERM (11:51)
[2024-11-03] MEDS: IMODIUM LIQUID 2 MG PO (12:18)
[2024-11-03] MEDS: TYLENOL 650 MG PO (12:32)
[2024-11-03] MEDS: ROXICODONE 15 MG PO (12:32)
[2024-11-03] MEDS: TORADOL 15 MG IV ×2 (12:33→22:56)
--- NOTE | 2024-11-03 14:44 | CM ---
CM following re: discharge planning.
Reviewed pt's chart, met with pt. Pt's Dot and pt's brother at bedside.
Pt lives with Dot in a townhouse, 2 steps to enter. [facility] and pt stated she preferred Palliative care and she has an appointment with them on 11/09/24.
[facility] liaison following.
Please fax discharge instructions to [facility] at [phone].
D/C plan: home with resumptions of [facility], palliative care and spouse support. Spouse to transport at discharge.
CM will follow with discharge plan updates as hospitalization progresses
--- NOTE | 2024-11-03 14:47 | PTCARENOTE ---
1 unit of PRBCs transfused, no adverse reaction noted, VSS and documented
[2024-11-03] MEDS: LOVENOX 40 MG SC (16:59)
--- NOTE | 2024-11-03 19:00 | PTCARENOTE ---
2 RNs (dayshift + nightshift) confirmed the patient was wearing exactly 2 Fentanyl patches on her upper right arm. one 100mcg/hr patch and one 25mcg/hr patch, making a combined dosage of 125mcg/hr of Fentanyl.
[2024-11-03] MEDS: FLUSH (NSS) 2 FLUSH IV ×2 (20:25→22:57)
[2024-11-04] MEDS: ROXICODONE 15 MG PO ×2 (01:11→13:45)
[2024-11-04] MEDS: SYNTHROID 25 MCG PO (05:28)
[2024-11-04] MEDS: TORADOL 15 MG IV ×2 (05:33→21:22)
[2024-11-04] MEDS: FLUSH (NSS) 2 FLUSH IV ×6 (05:34→21:23)
[2024-11-04 07:00] VITALS: BP 92/56
[2024-11-04] MEDS: IMODIUM LIQUID 2 MG PO ×2 (07:50→20:13)
[2024-11-04] MEDS: PROTONIX 40 MG PO (07:50)
[2024-11-04] MEDS: NEUTRA-PHOS POWDER PACKET 250 MG PO (07:52)
[2024-11-04] MEDS: DILAUDID 1.5 MG IV ×3 (08:11→17:15)
[2024-11-04] MEDS: ZOFRAN 4 MG IV (08:13)
--- NOTE | 2024-11-04 08:14 | W.PN.HOSP.TC ---
Today's Communication/Plan
-
See bold
Assessment / Plan
Assessment / Plan
Patient is a 69y F with PMH significant for colon cancer who presents to ED complaining of uncontrolled abdominal pain.
Fever/leukocytosis, sepsis/infection ruled out
-New fever on 10/30. Worsening leukocytosis
-Necrotic hepatic mass could be contributing, however given she is not a surgical candidate and she is more of a palliative/hospice candidate we will not pursue any procedure for this, unless she develops significant peritoneal fluid and needs a dx
paracentesis
-Fever could alternately be from tumor burden
-Cultures negative to date, on empiric Rocephin/Flagyl D2 for presumed abdominal source
-Appreciate ID input, no infection identified, ID suspects tumor fever
-Rocephin/Flagyl discontinued
-Continue IV fluids as needed for tachycardia and low blood pressure, likely dehydration induced
Stage IV Colon Cancer
w/Intractable Abdominal Pain
Status post ileostomy
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
-Appreciate oncology input, patient has prognosis of 1 year if she is able to tolerate Keytruda
-Pain is better controlled with increased pain meds, increased fentanyl patch to 125 mcg every 72 hours, continue oxycodone 15 mg every 4 hours as needed�which can be converted to hydromorphone 6 mg every 2 hours as needed upon discharge
-Check abdominal ultrasound for ascites, and consult IR if needed
Ostomy care per routine
- Palliative Care evaluation. Patient has outpatient palliative care appointment for 11/09/24
- Oncology follows at [place]
- Appreciate colorectal surgery input, started Imodium 2 mg BID sched to reduce dehydration
Chronic iron deficiency anemia
Symptomatic anemia
-Hemoglobin 8.7 today, improved from 7.4 status post 1 unit packed red blood cells 11/03
Hypophosphatemia
- Replete prn
Severe protein calorie malnutrition of chronic illness
-encourage oral intake
Hyponatremia, asx
-Mild, monitor
Hypothyroidism
- Stable. Continue usual T4 replacement.
Systemic Sclerosis
- Not on any medical therapy at this time.
DVT Prophylaxis: Lovenox
Code Status: No Intubation / Ventilator Support
Updated spouse at bedside 11/04
Total time spent to see the patient on the floor, examine the patient, review data and lab results, discuss treatment plan with patient, nursing staff around 50 minutes.
Physical Exam
General: No acute distress
HEENT: Normocephalic, Atraumatic, EOMI, MMM
Respiratory: Clear to Auscultation bilaterally
Cardiac: Normal S1/S2, Regular Rate and Rhythm
GI: tense, tender, distended, healing midline incision, +ostomy
Extremities: Bilateral lower extremity edema noted
Neuro: Nonfocal/Grossly Intact
Anticipated Discharge: 24 - 48 hours
Subjective/Interval History
-
Date of Service: November 03, 2024
Lightheadedness and dizziness resolved. She feels that her abdomen is more distended, from fluid. She continues to have abdominal pain, she thinks it is from the fluid. She does feel more energy after receiving the blood. Fever improved, no
vomiting.
Objective Data
-
Labs:
Laboratory Results
11/03/24
05:22
WBC 26.5 H
Hgb 7.4 L
Hct 23.0 L
Plt Count 539 H
Sodium 135
Potassium 4.9
Chloride 110 H
Carbon Dioxide 19 L
BUN 28 H
Creatinine 0.7
Glucose 73
Calcium 7.8 L
Vital Signs:
Vital Signs
Temp Pulse Resp BP Pulse Ox
98.6 F 98 16 91/55 93
11/03/24 16:01 11/03/24 16:11/03/24 16:11/03/24 16:25 16:01
I&O
11/02/24 11/03/24 11/04/24
06:59 06:59 06:59
Intake Total 900 / 900 480 / 480 250 / 250
Balance 900 / 900 480 / 480 250 / 250
[2024-11-04 09:40] LABS: Hematocrit 27.1 % (37.0-47.0); Hemoglobin 8.7 g/dL (12.0-16.0); Mean Corp Hgb Conc. 32.1 g/dL (33.0-37.0); Mean Corpuscular Volume 89.1 fL (81.0-99.0); Platelet Count 547 10^3/uL (130-400); Red Cell Dist. Width 15.9 % (11.5-14.5)
[2024-11-04 10:03] LABS: Blood Urea Nitrogen 25 mg/dl (7-17); Calcium 8.1 mg/dl (8.4-10.2); Carbon Dioxide 23 mmol/L (22-30); Chloride 110 mmol/L (98-107); Estimated Creatinine Clearance 73 ml/min; Glucose 135 mg/dl (70-99); Potassium 5.1 mmol/L (3.5-5.1); Sodium 135 mmol/L (135-145); eGFR > 60.00
[2024-11-04] MEDS: NEUTRA-PHOS POWDER PACKET 500 MG PO (14:10)
[2024-11-04] MEDS: REMOVE DURAGESIC PATCH 1 PATCH REMOVE ×2 (14:19→20:14)
[2024-11-04] MEDS: SODIUM PHOSPHATE 255 MEQ IV (15:12)
[2024-11-04 15:26] VITALS: BP 101/59
[2024-11-04] MEDS: LOVENOX 40 MG SC (17:11)
[2024-11-04] MEDS: NSS 500 IV (17:22)
[2024-11-04] MEDS: DURAGESIC 50 MCG/HR PATCH 1 PATCH TRANSDERM (20:15)
[2024-11-04 23:00] VITALS: BP 103/63
[2024-11-05] MEDS: SYNTHROID 25 MCG PO (05:13)
[2024-11-05] MEDS: FLUSH (NSS) 2 FLUSH IV ×2 (05:15→12:39)
[2024-11-05] MEDS: DILAUDID 1.5 MG IV ×2 (05:15→12:37)
[2024-11-05] MEDS: ZOFRAN 4 MG IV (05:19)
[2024-11-05 05:34] LABS: Hematocrit 27.0 % (37.0-47.0); Hemoglobin 8.8 g/dL (12.0-16.0); Mean Corp Hgb Conc. 32.6 g/dL (33.0-37.0); Mean Corpuscular Volume 87.4 fL (81.0-99.0); Platelet Count 562 10^3/uL (130-400); Red Cell Dist. Width 15.9 % (11.5-14.5)
[2024-11-05 05:56] LABS: Blood Urea Nitrogen 19 mg/dl (7-17); Calcium 7.7 mg/dl (8.4-10.2); Carbon Dioxide 23 mmol/L (22-30); Chloride 109 mmol/L (98-107); Estimated Creatinine Clearance 73 ml/min; Glucose 89 mg/dl (70-99); Potassium 5.0 mmol/L (3.5-5.1); Sodium 135 mmol/L (135-145); eGFR > 60.00
[2024-11-05 07:05] VITALS: BP 92/51
[2024-11-05] MEDS: PROTONIX 40 MG PO (08:38)
[2024-11-05] MEDS: IMODIUM LIQUID 2 MG PO ×2 (08:38→20:41)
--- NOTE | 2024-11-05 08:42 | W.PN.HOSP.TC ---
Today's Communication/Plan
-
see bold
Assessment / Plan
Assessment / Plan
Patient is a 69y F with PMH significant for colon cancer who presents to ED complaining of uncontrolled abdominal pain.
Fever/leukocytosis, sepsis/infection ruled out
-New fever on 10/30. Worsening leukocytosis
-Necrotic hepatic mass could be contributing, however given she is not a surgical candidate and she is more of a palliative/hospice candidate we will not pursue any procedure for this, unless she develops significant peritoneal fluid and needs a dx
paracentesis
-Fever could alternately be from tumor burden
-Cultures negative to date, on empiric Rocephin/Flagyl D2 for presumed abdominal source
-Appreciate ID input, no infection identified, ID suspects tumor fever
-Rocephin/Flagyl discontinued
-Continue IV fluids as needed for tachycardia and low blood pressure, likely dehydration induced
Stage IV Colon Cancer
w/Intractable Abdominal Pain
Status post ileostomy
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
-Appreciate oncology input, patient has prognosis of 1 year if she is able to tolerate Keytruda
-Pain is better controlled with increased pain meds, increased fentanyl patch to 150 mcg every 72 hours, increase oxycodone to 20 mg every 4 hours as needed�which can be converted to hydromorphone 8 mg every 2 hours as needed upon discharge
- Abdominal ultrasound shows trace ascites -discussed with patient, no need for paracentesis
Dizziness
- Check orthostatic vital signs
Weakness
- Consult PT
Ostomy care per routine
- Palliative Care evaluation. Patient has outpatient palliative care appointment for 11/09/24
- Oncology follows at [place]
- Appreciate colorectal surgery input, started Imodium 2 mg BID sched to reduce dehydration
Chronic iron deficiency anemia
Symptomatic anemia
-Hemoglobin 8.8 today, improved from 7.4 status post 1 unit packed red blood cells 11/03
Hypophosphatemia
- Replete prn
Severe protein calorie malnutrition of chronic illness
-encourage oral intake
Hyponatremia, asx
-Mild, monitor
Hypothyroidism
- Stable. Continue usual T4 replacement.
Systemic Sclerosis
- Not on any medical therapy at this time.
DVT Prophylaxis: Lovenox
Code Status: No Intubation / Ventilator Support
Updated spouse at bedside 11/05
Total time spent to see the patient on the floor, examine the patient, review data and lab results, discuss treatment plan with patient, nursing staff around 51 minutes.
Physical Exam
General: No acute distress
HEENT: Normocephalic, Atraumatic, EOMI, MMM
Respiratory: Clear to Auscultation bilaterally
Cardiac: Normal S1/S2, Regular Rate and Rhythm
GI: tense, tender, distended, healing midline incision, +ostomy
Extremities: Bilateral lower extremity edema noted
Neuro: Nonfocal/Grossly Intact
Anticipated Discharge: 24 - 48 hours
Subjective/Interval History
-
Date of Service: November 05, 2024
Patient complains of dizziness. She still gets sharp abdominal pain early in the morning, requiring IV Dilaudid. Has nausea with Dilaudid, controlled with Zofran. No fever, no vomiting.
Objective Data
-
Labs:
Laboratory Results
11/05/24
05:15
WBC 20.2 H
Hgb 8.8 L
Hct 27.0 L
Plt Count 562 H
Sodium 135
Potassium 5.0
Chloride 109 H
Carbon Dioxide 23
BUN 19 H
Creatinine 0.5 L
Glucose 89
Calcium 7.7 L
Vital Signs:
Vital Signs
Temp Pulse Resp BP Pulse Ox
99.5 F 93 16 92/51 95
11/05/24 07:05 11/05/24 07:05 11/05/24 07:05 11/05/24 07:05 11/05/24 07:05
I&O
11/04/24 11/05/24 11/06/24
06:59 06:59 06:59
Intake Total 1330 / 1330 1330 / 1330
Output Total 175 / 175 75 / 75
Balance 1155 / 1155 1255 / 1255
[2024-11-05] MEDS: ROXICODONE 15 MG PO (08:56)
[2024-11-05] MEDS: TYLENOL 650 MG PO (15:25)
[2024-11-05 15:40] VITALS: BP 105/65; O2SAT 95
[2024-11-05 15:41] VITALS: BP 102/60
[2024-11-05] MEDS: LOVENOX 40 MG SC (16:55)
--- NOTE | 2024-11-05 20:28 | PTCARENOTE ---
11/05: fentanyl patch order changed. only two patches ordered instead of 3. 100mcg patch and 50mcg fentanyl patches applied 11/04. witness confirms two patches present on right upper arm.
[2024-11-05] MEDS: ROXICODONE 20 MG PO (20:41)
[2024-11-05 23:11] VITALS: BP 100/59
[2024-11-06] MEDS: ROXICODONE 20 MG PO ×3 (02:49→14:00)
[2024-11-06 04:40] LABS: Hematocrit 27.4 % (37.0-47.0); Hemoglobin 8.9 g/dL (12.0-16.0); Mean Corp Hgb Conc. 32.5 g/dL (33.0-37.0); Mean Corpuscular Volume 87.5 fL (81.0-99.0); Platelet Count 592 10^3/uL (130-400); Red Cell Dist. Width 15.9 % (11.5-14.5)
[2024-11-06 05:06] LABS: Blood Urea Nitrogen 17 mg/dl (7-17); Calcium 8.1 mg/dl (8.4-10.2); Carbon Dioxide 23 mmol/L (22-30); Chloride 107 mmol/L (98-107); Estimated Creatinine Clearance 73 ml/min; Glucose 93 mg/dl (70-99); Potassium 5.0 mmol/L (3.5-5.1); Sodium 132 mmol/L (135-145); eGFR > 60.00
[2024-11-06] MEDS: SYNTHROID 25 MCG PO (06:29)
[2024-11-06 06:54] VITALS: BP 107/60
[2024-11-06] MEDS: IMODIUM LIQUID 2 MG PO (07:55)
[2024-11-06] MEDS: PROTONIX 40 MG PO (07:55)
--- NOTE | 2024-11-06 08:59 | W.PN.HOSP.TC ---
Addendum entered and electronically signed by Alysa Sweeney MD 11/06/24 13:18:
Addendum
Patient met with director of casework department. Discussed discharge planning. Patient feels comfortable going home and requested discharge
I discussed the patient regarding pain management. She has Dilaudid at home/no refill given. She was counseled regarding safe use of opioid including oral oxycodone and how to take 10 mg first then 20 mg as needed for moderate pain. Use oral
Dilaudid only for severe breakthrough pain. She tolerated fentanyl of 150 mcg/h dose. Patient reported that she had only 4 patches left of 50 mcg of fentanyl at home. I called [facility] pharmacy, spoke with pharmacist and reviewed prescriptions with
him.
Total discharge time spent to see the patient, examine the patient, review data and lab results, discuss discharge plan with patient, nursing staff around 65 minutes
Original Note:
Today's Communication/Plan
-
Possible discharge today
She wanted to meet with director of casework department and hospice ( looking for home care).
Assessment / Plan
Assessment / Plan
Physical Exam
General: No acute distress, under weight
HEENT: Normocephalic, Atraumatic, EOMI, MMM
Respiratory: Clear to Auscultation bilaterally
Cardiac: Normal S1/S2, Regular Rate and Rhythm
GI: soft, mild discomfort on exam, healing midline incision, +stool in ostomy
Extremities: Bilateral lower extremity mild edema noted
Neuro: Nonfocal/Grossly Intact, AAOX3. She followed commands
Psych: calm.
Patient is a 69y F with PMH significant for colon cancer who presents to ED complaining of uncontrolled abdominal pain.
# Fever/leukocytosis due to advanced cancer, sepsis/infection ruled out
-New fever on 10/30. Worsening leukocytosis
-Necrotic hepatic mass could be contributing, however given she is not a surgical candidate and she is more of a palliative/hospice candidate. Patient wants home hospice.
-Fever could alternately be from tumor burden
-Cultures negative to date, on empiric Rocephin/Flagyl D2 for presumed abdominal source
-Appreciate ID input, no infection identified, ID suspects tumor fever
-Rocephin/Flagyl discontinued
-Continue IV fluids as needed for tachycardia and low blood pressure, likely dehydration induced
Stage IV Colon Cancer
w/Intractable cancer abdominal Pain
Status post ileostomy
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
-Appreciate oncology input, patient has prognosis of 1 year if she is able to tolerate Keytruda
-Pain is better controlled with increased pain meds, increased fentanyl patch to 150 mcg every 72 hours, increase oxycodone to 20 mg every 4 hours as needed�which can be converted to hydromorphone 8 mg every 2 hours as needed upon discharge
- Abdominal ultrasound shows trace ascites -discussed with patient, no need for paracentesis
Dizziness likely due to high dose of Opiates
Advised to avoid falls and given instructions about precautions with postural changes
Follow-up with PT/OT
Ostomy care per routine
- Palliative Care evaluation. Patient has outpatient palliative care appointment for 11/09/24
- Oncology follows at [place]
- Appreciate colorectal surgery input, started Imodium 2 mg BID sched to reduce dehydration
Chronic iron deficiency anemia
Symptomatic anemia due to colon cancer/chronic blood loss anemia
Status post 1 unit of blood. Stable hemoglobin
Hypophosphatemia, replaced.
Severe protein calorie malnutrition of chronic illness
-encourage oral intake
Hyponatremia, asx
-Mild, no confusion.
Hypothyroidism
- Stable. Continue usual T4 replacement.
Systemic Sclerosis
- Not on any medical therapy at this time.
DVT Prophylaxis: Lovenox
Code Status: No Intubation / Ventilator Support
Discussed discharge plan with patient and at bedside. Both wanted to have a meeting with hospice, plan to do palliative care/hospice care in outpatient setting
Total time spent to see the patient on the floor, examine the patient, review data and lab results, discuss treatment plan with patient, nursing staff around 55 minutes.
Anticipated Discharge: Today
Subjective/Interval History
-
Date of Service: November 06, 2024
Pain is better controlled
Objective Data
-
Labs:
Laboratory Results
11/06/24
04:13
WBC 22.7 H
Hgb 8.9 L
Hct 27.4 L
Plt Count 592 H
Sodium 132 L
Potassium 5.0
Chloride 107
Carbon Dioxide 23
BUN 17
Creatinine 0.5 L
Glucose 93
Calcium 8.1 L
Vital Signs:
Vital Signs
Temp Pulse Resp BP Pulse Ox
98.1 F 106 18 107/60 98
11/06/24 06:54 11/06/24 06:54 11/06/24 06:54 11/06/24 06:54 11/06/24 06:54
I&O
11/05/24 11/06/24 11/07/24
06:59 06:59 06:59
Intake Total 1330 / 1330 780 / 780
Output Total 75 / 75 450 / 450
Balance 1255 / 1255 330 / 330
--- NOTE | 2024-11-06 10:37 | CM ---
Patient seen at bedside with patient son and patient stated that she was hoping to talk to the [facility] hospice for education/information. [facility] follow and spouse to transport. Patient has an appointment with Palliative Care. CM
updated Liaison for [facility] hospice. Patient for assessment today. CM will continue to follow for discharge planning needs.
Plan; home with palliative care/[facility] watch for [facility] hospice information
--- NOTE | 2024-11-06 10:44 | CM ---
ADELITA SWEENEY Female : 1955 [id number]
11/06/24 10:37 - Case Management Note by Lurdes Grubbs
Acct Num: [id number] : 1955 Patient Age: 69
Patient seen at bedside on [address] and patient stated that she was hoping to talk to the [facility] hospice for education/information. Patient plan is for [facility] to follow and spouse to transport. Patient has an appointment with Palliative Care. CM updated
Liaison for [facility] hospice. Patient for assessment today. CM will continue to follow for discharge planning needs.
Plan; [facility] hosp[facility] information
--- NOTE | 2024-11-06 10:46 | W.PN.ONC2 ---
Today's Communication / Plan
-
Discharge planning in progress
I will reschedule Keytruda upon discharge
Impression
Impression
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
Diverting ileostomy
Cancer associated pain
Scleroderma
leukocytosis
Fever, not neutropenic
Plan
Plan
Pain management per palliative care
ID following
Subjective/Objective
Subjective
no new complaints
pain adequately controlled
denies bleeding
Tmax 101F yesterday
Vital Signs:
Vital Signs
Temp Pulse Resp BP Pulse Ox
98.1 F 106 18 107/60 98
11/06/24 06:54 11/06/24 06:54 11/06/24 06:54 11/06/24 06:54 11/06/24 06:54
Lab Results:
Laboratory Data
WBC 22.7 10^3/uL (4.8-10.8) H 11/06/24 04:13
Hgb 8.9 g/dL (12.0-16.0) L 11/06/24 04:13
Plt Count 592 10^3/uL (130-400) H 11/06/24 04:13
eGFR > 60.00 11/06/24 04:13
Physical Exam
HEENT: Moist Mucous Membranes; No Jaundice
Pulmonary: Other (unlabored)
GI: Soft
Extremities: Pulses Present
--- NOTE | 2024-11-06 12:09 | HOSPNOTE ---
Spoke with patient about hospice and the philosophy. The plan is for patient to be discharged and still seek treatments. The patient stated that she will placed on Keytruda. The plan is to continue to seek treatment and then will call me at a later
date. The patient has my direct contact information.
[2024-11-06] MEDS: DILAUDID 1.5 MG IV (12:31)
--- NOTE | 2024-11-06 13:16 | W.DCSUMMARY ---
Discharge Summary
Discharge Data
Date of Admission: 10/29/24
Date of Discharge: 11/06/24
-
Pending Results: No
Hospital Course
69 years old female with history of metastatic stage IV colon cancer presented to the hospital with intractable abdominal pain. Patient was seen by her oncologist. She was given prescriptions of tramadol, oral Dilaudid solution and fentanyl patch.
Patient was not able to control her pain and presented for pain control. Patient was seen by oncologist. Recommendation to increase the dose of fentanyl patch until better pain control to provide steady level of pain control then use Dilaudid or
oxycodone for breakthrough pain. Goal of care discussed with the patient. Patient wanted to have palliative care/hospice care in outpatient setting. Oncologist recommended outpatient follow-up with palliative care for pain management in addition
to possible rescheduling of Keytruda for palliative management. Surgery evaluated the patient for worsening abdominal pain, pain was consistent with the progression of the tumor as well as mild enteritis. No surgical intervention but to continue
pain control and diet as tolerated. She had increasing ileostomy output and recommended to use Imodium as needed. Patient had one-time fever and leukocytosis. She was seen by infectious diseases doctor. No infection identified and blood culture
remained negative. Fever and elevated inflammation markers/white cell count were all consistent with progression of colon cancer. She initially received empiric antibiotic but that was stopped. She did not have recurrent fever. Patient reported
that her pain was manageable with the use of 150 mcg of fentanyl with as needed oxycodone/Dilaudid. She did not need significant of doses of breakthrough pain medications. She remained hemodynamically stable. She was evaluated by physical therapy
recommended home health services. Patient was counseled regarding safe use of opioid including dosage instructions and avoidance of overdose/potential side effects with the drowsiness and lethargy. Patient and her verbalized understanding.
Patient was evaluated by field case manager and was discharged home in a stable condition.
Discharge Plan
-
Patient Disposition: Home with Home Care
Discharge Diagnosis/Procedures: Stage IV colon cancer with peritoneal implants
Diverting ileostomy
Cancer associated pain
Scleroderma
You are started on fentanyl, total of 150 mcg/h patch. You tolerated medicine well. Use oxycodone for moderate pain, you can take 10 mg first then add another 10 mg if no improvement in pain. Use oral Dilaudid solution only for severe
breakthrough pain.
Potential side effects of opioid include the drowsiness, respiratory failure, potential overdose. Please adhere to the administration instructions as instructed.
Diet: As tolerated
Referrals:
Josiane Roberts MD [Active, Oncology]
Amando Martinez MD [Family Provider, Family Practice]
Prescriptions:
New
loperamide 1 mg/7.5 mL Liquid
2 mg PO BIDPRN PRN (Reason: diarrhea) Qty: 120 0RF
oxycodone 10 mg Tablet
20 mg PO TIDPRN PRN (Reason: moderate pain) Qty: 30 0RF
fentanyl 50 mcg/hr patch 72 hour
1 patch transdermal Q72H Qty: 10 0RF
Rx Instructions:
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
Patient tolerated 150 mcg/ hr of fentanyl in hospital
fentanyl 100 mcg/hr patch 72 hour
1 patch transdermal Q72H Qty: 10 0RF
Rx Instructions:
Stage IV colon cancer
Patient tolerated 150 microgram/ hr of fentanyl in hospital
Continued
levothyroxine 25 mcg Tablet
25 mcg PO DAILY@06
acetaminophen 500 mg Tablet
500 mg PO Q6H PRN (Reason: pain)
omeprazole 20 mg Tablet,Delayed Release (Dr/Ec)
20 mg PO DAILY
ondansetron HCl 4 mg Tablet
4 mg PO Q8H PRN (Reason: nausea)
hydromorphone 1 mg/mL Liquid
2 mg PO Q2HPRN PRN (Reason: severe breakthrough pain) Qty: 0 0RF
Discontinued
fentanyl 50 mcg/hr Patch 72 Hour
1 patch TRANSDERMAL Q72H
Discharge Orders:
Discharge Patient (As Directed); Ordered 11/06/24
Ordered By: Alysa Sweeney
Discharge Date and Time
Discharge Date/Time: 11/06/24 14:17
Print Language: CZECH
[2024-11-06 13:31] VITALS: BP 102/64
== END 2024-11-06 14:17 | disposition home health service (06) | DRG 947 ==
LOC: 2 NORTH 20:10
PROVIDERS: Emergency Medicine; Family Medicine; Internal Medicine; ADMITTING PHYSICIAN Hospitalist; ATTENDING PHYSICIAN Internal Medicine; CONSULT PHYSICIAN Internal Medicine Hematology & Oncology; CONSULT PHYSICIAN Internal Medicine Infectious Disease; EMERGENCY PHYSICIAN Emergency Medicine; FAMILY PHYSICIAN Family Medicine; OTHER PHYSICIAN Surgery
PROC: 30243N1 Transfusion of Nonautologous Red Blood Cells into Central Vein, Percutaneous Approach (ICD-10-PCS; 2024-11-03)
DX: G89.3 Neoplasm related pain (acute) (chronic) (principal); E43 Unspecified severe protein-calorie malnutrition; C18.4 Malignant neoplasm of transverse colon; C78.6 Secondary malignant neoplasm of retroperitoneum and peritoneum; E87.1 Hypo-osmolality and hyponatremia; Z68.1 Body mass index [BMI] 19.9 or less, adult; K52.9 Noninfective gastroenteritis and colitis, unspecified; E83.39 Other disorders of phosphorus metabolism; K72.90 Hepatic failure, unspecified without coma; M34.9 Systemic sclerosis, unspecified; E03.9 Hypothyroidism, unspecified; D50.0 Iron deficiency anemia secondary to blood loss (chronic); K21.9 Gastro-esophageal reflux disease without esophagitis; D53.9 Nutritional anemia, unspecified; Z85.3 Personal history of malignant neoplasm of breast; Z92.21 Personal history of antineoplastic chemotherapy; Z90.13 Acquired absence of bilateral breasts and nipples; Z98.84 Bariatric surgery status; Z79.890 Hormone replacement therapy; Z90.49 Acquired absence of other specified parts of digestive tract; Z88.0 Allergy status to penicillin; Z88.8 Allergy status to other drugs, medicaments and biological substances; Z91.048 Other nonmedicinal substance allergy status; Z93.2 Ileostomy status; Z87.442 Personal history of urinary calculi
CPT/HCPCS: 74177; 76705; 80048; 80053; 81003; 81015; 82248; 82607; 82728; 82746; 83540; 83550; 83605; 83690; 83735; 84100; 85025; 85027; 86850; 86900; 86901; 86920; 87040; 96374; 96375; 96376; 97162; 99285; P9016; Q9967